=== PATIENT | male | born 1940 | race Caucasian/White ===

== ENCOUNTER → 2016-12-19 | Outpatient (CLI) | payer MEDICARE ==
--- NOTE | 2016-12-20 08:51 | XR ---
EXAMINATION TYPE: XR skull limited DATE OF EXAM: 12/19/2016 12:18 PM COMPARISON: NONE HISTORY: Palpable lump top of the head TECHNIQUE: 2 views of the skull are submitted. FINDINGS: Osseous structures intact. No destructive change. No bony abnormality. IMPRESSION: 1. No osseous abnormality if there is concern for soft tissue lesion consider CT scan or ultrasound.
== END | disposition home or self-care (01) ==
LOC: RADXRYALE 12:02
PROVIDERS: ATTEND Physician Assistant Medical
DX: R22.0 Localized swelling, mass and lump, head (principal)
CPT/HCPCS: 70250

== ENCOUNTER → 2016-12-28 | Outpatient (CLI) | payer MEDICARE ==
--- NOTE | 2016-12-28 15:06 | CT ---
EXAMINATION TYPE: CT brain wo con DATE OF EXAM: 12/28/2016 2:44 PM COMPARISON: NONE HISTORY: Gait disturbance. CT DLP: 1207.00 mGycm Automated exposure control for dose reduction was used. FINDINGS: There are generalized changes of sulcal prominence and ventriculomegaly, compatible with mi ld atrophic change. There is some diffuse periventricular white matter lucency, compatible with small vessel ischemic change. There is no acute focal lesion, mass effect or midline shift identified. I d o not see evidence of intracranial blood. Visualized portions of the paranasal sinuses are clear. There is some fluid in the right-sided mastoi d air cells. No depressed skull fracture is seen. IMPRESSION: 1. NO ACUTE INTRACRANIAL ABNORMALITY. 2. MILD ATROPHIC CHANGE. 3. CHRONIC WHITE MATTER ISCHEMIC CHANGE. 4. EVIDENCE OF RIGHT-SIDED MASTOIDITIS.
== END | disposition home or self-care (01) ==
LOC: RADCTMAIN 14:12
PROVIDERS: ATTEND Family Medicine
DX: R90.89 Other abnormal findings on diagnostic imaging of central nervous system (principal); G31.9 Degenerative disease of nervous system, unspecified
CPT/HCPCS: 70450

== ENCOUNTER → 2017-02-06 | Outpatient (CLI) | payer MEDICARE ==
[2017-02-06 09:18] LABS: CH 30.8; CHCM 33.4; HCT 44.6 % (39.0-53.0); HDW 2.64; MCHC 33.6 g/dL (31.0-37.0); MCV 92.5 fL (80.0-100.0); RBC 4.83 m/uL (4.30-5.90); RDW 13.3 % (11.5-15.5); WBC 6.8 k/uL (3.8-10.6)
[2017-02-06 09:48] LABS: Appearance,Urine Clear (Clear); Bilirubin,Urine Negative (Negative); Glucose,Urine (UA) Negative (Negative); Ketones,Urine Negative (Negative); Leukocyte Esterase,Urine Negative (Negative); Nitrite,Urine Negative (Negative); PH, Urine 6.5 (5.0-8.0); Protein,Urine Trace (Negative); Specific Gravity,Urine 1.023 (1.001-1.035); UA Billing (MACRO vs. MICRO) CHEM
[2017-02-06 10:32] LABS: ALT 32 U/L (21-72); AST 20 U/L (17-59); Alkaline Phosphatase 129 U/L (38-126); Anion Gap 9 mmol/L; Blood Urea Nitrogen 21 mg/dL (9-20); C Reactive Protein <5.0 mg/L (<10.0); Calcium 10.1 mg/dL (8.4-10.2); Carbon Dioxide 32 mmol/L (22-30); Chloride 102 mmol/L (98-107); Creatine Kinase 40 U/L (55-170); Glucose 120 mg/dL (74-99); Magnesium 1.7 mg/dL (1.6-2.3); Non-African American GFR(MDRD) >60 (>60 ml/min/1.73 sqM); Potassium 4.9 mmol/L (3.5-5.1); Sodium 143 mmol/L (137-145); Total Bilirubin 1.1 mg/dL (0.2-1.3)
[2017-02-06 11:22] LABS: Vitamin B12 224 pg/mL
[2017-02-06 13:50] LABS: Erythrocyte Sedimentation Rate 6 mm/hr (0-15)
[2017-02-06 15:17] LABS: Hemoglobin A1C 6.1 % (4.2-6.1)
[2017-02-07 07:12] LABS: Cyclic Citrullinated Pep IgG 5 UNITS (<20)
[2017-02-08 05:59] LABS: Vitamin E (Alpha Tocopherol) 739 ug/dL (500-1800)
[2017-02-12 22:35] LABS: Vitamin K 820 pg/mL (80-1160)
[2017-02-16 19:02] LABS: Nicotinamide 25 ng/mL; Nicotinic Acid None Detected; Nicotinuric Acid None Detected
== END ==
LOC: LABWHC1 08:13
PROVIDERS: ATTEND Psychiatry & Neurology Neurology
DX: G89.4 Chronic pain syndrome (principal); G62.9 Polyneuropathy, unspecified; M79.7 Fibromyalgia
CPT/HCPCS: 36415; 80053; 81003; 82306; 82550; 82607; 83036; 83519; 83735; 84207; 84425; 84446; 84590; 84591; 84597; 85027; 85652; 86140; 86200; 86235

== ENCOUNTER → 2017-02-08 | Outpatient (CLI) | payer MEDICARE ==
--- NOTE | 2017-02-08 11:48 | MR ---
EXAMINATION TYPE: MR brain wo/w con DATE OF EXAM: 02/08/2017 11:40 AM COMPARISON: Previous CT scan of the brain dated 12/28/2016. HISTORY: Memory loss TECHNIQUE: Multiplanar, multiecho imaging of the brain was obtained with and without intravenous adm inistration of 20 mL intravenous MultiHance. FINDINGS: Midline structures are unremarkable. There is a normal craniocervical junction. There is mild mucoperiosteal thickening involving the right maxillary sinus. There is abnormal signal in the right mastoid air cells suggestive of mastoiditis. There are normal vascular flow voids. The orbits appear normal. There is no evidence of a CP angle mass lesion. There is both punctate and confluent periventricular white matter change, likely on the basis of smal l vessel disease and chronic ischemic change. There is evidence of mild layering degeneration within the sherley. There is no mass effect, midline shift or intracranial blood. Following intravenous administration of gadolinium, I do not see evidence of abnormal enhancement. IMPRESSION: 1. NO ACUTE INTRACRANIAL ABNORMALITY. 2. PUNCTATE AND CONFLUENT PERIVENTRICULAR WHITE MATTER CHANGE LIKELY ON THE BASIS SMALL VESSEL DISEAS E AND CHRONIC ISCHEMIC CHANGE. 3. MILD, CHRONIC RIGHT MAXILLARY SINUS MUCOSAL DISEASE. 4. RIGHT-SIDED MASTOIDITIS.
== END | disposition home or self-care (01) ==
LOC: RADMRIMAIN 10:39
PROVIDERS: ATTEND Psychiatry & Neurology Pain Medicine
DX: R90.82 White matter disease, unspecified (principal)
CPT/HCPCS: 70553; A9577

== ENCOUNTER 2017-05-22 21:22 | Inpatient (IN) | payer MEDICARE ==
[2017-05-22] MEDS ORDERED: ASPIRIN 81 MG CHEW PO STA (21:55)
[2017-05-22] MEDS ORDERED: SODIUM CHLORIDE 0.9% 1,000 ML IV STA (21:55)
[2017-05-22] MEDS ORDERED: MORPHINE SULFATE 2 MG/ML SYRINGE IVP ONE (21:57)
[2017-05-22] MEDS ORDERED: ONDANSETRON 4 MG/2 ML VIAL IVP STA (21:58)
[2017-05-22 22:16] LABS: Basophils # (A) 0.1 k/uL (0-0.2); Basophils % (A) 1 %; CH 32.7; CHCM 35.9; Eosinophils # (A) 0.1 k/uL (0-0.7); Eosinophils % (A) 2 %; HCT 41.6 % (39.0-53.0); HDW 2.98; HGB 14.6 gm/dL (13.0-17.5); Luc # (Auto) 0.16; Luc % (Auto) 2; Lymphocytes # (A) 1.8 k/uL (1.0-4.8); Lymphocytes % (A) 27 %; MCH 32.1 pg (25.0-35.0); MCHC 35.1 g/dL (31.0-37.0); MCV 91.5 fL (80.0-100.0); Mean Platelet Volume 8.2; Monocytes # (A) 0.5 k/uL (0-1.0); Monocytes % (A) 7 %; Neutrophils % (A) 60 %; RBC 4.54 m/uL (4.30-5.90); RDW 13.7 % (11.5-15.5); WBC 6.6 k/uL (3.8-10.6); WBC (Perox) 6.32
[2017-05-22 22:24] LABS: INR 1.4 (<1.1); Partial Thromboplastin Time 24.7 sec (22.0-30.0); Prothrombin Time 13.5 sec (9.0-12.0)
[2017-05-22 22:33] LABS: ALT 32 U/L (21-72); AST 33 U/L (17-59); Alkaline Phosphatase 92 U/L (38-126); Anion Gap 10 mmol/L; Blood Urea Nitrogen 14 mg/dL (9-20); Calcium 7.7 mg/dL (8.4-10.2); Carbon Dioxide 27 mmol/L (22-30); Chloride 105 mmol/L (98-107); Glucose 120 mg/dL (74-99); Non-African American GFR(MDRD) >60 (>60 ml/min/1.73 sqM); Potassium 3.7 mmol/L (3.5-5.1); Sodium 142 mmol/L (137-145); Total Protein 6.6 g/dL (6.3-8.2)
[2017-05-22 22:36] LABS: Magnesium <0.4 mg/dL (1.6-2.3)
[2017-05-22 22:37] LABS: Creatine Kinase 111 U/L (55-170)
[2017-05-22 22:50] LABS: Creatine Kinase MB 0.3 ng/mL (0.0-2.4); Troponin I <0.012 ng/mL (0.000-0.034)
--- NOTE | 2017-05-22 22:55 | XR ---
EXAM: XR Chest, 2 Views CLINICAL HISTORY: Reason: dysrhythmia TECHNIQUE: Frontal and lateral views of the chest. COMPARISON: No relevant prior studies available. FINDINGS: Several EKG wires overlie the chest. Lungs: Minimal biapical pleural thickening suggesting scarring. No defined infiltrate. Pleural space: No pleural effusion or pneumothorax. Heart: Prior median sternotomy and presumed CABG. heart size within normal limits. Mediastinum: Unremarkable. Bones/joints: Rightward curvature of the thoracic spine, with degenerative changes present. IMPRESSION: No acute intrathoracic abnormality is seen.
[2017-05-22] MEDS: MAGNESIUM SULFATE-D5W PMX 1 GM in DEXTROSE/WATER 1 100ML.BAG IVPB SCH (23:56)
[2017-05-23] MEDS ORDERED: MORPHINE SULFATE 2 MG/ML SYRINGE IVP PRN (00:33)
[2017-05-23] MEDS ORDERED: NITROGLYCERIN SL TABS 0.4 MG TAB SUBLINGUAL PRN (00:33)
--- NOTE | 2017-05-23 00:33 | ED ---
Arrhythmia/Palpitations HPI - General Chief Complaint: Arrhythmia/Palpitations Stated Complaint: irregular heartbeat Time Seen by Provider: 05/22/17 21:39 Source: patient, family Mode of arrival: ambulatory Limitations: no limitations - History of Present Illness Initial Comments: 76 years old gentleman with known ischemic heart disease and is status post CABG presents with the irregular heart. He felt that his pulse was more prominent today he was feeling that his heart was irregular he also felt some chest pressure he denies any chest pain denies any shortness of breathno pleuritic chest pain. No fever no chills he is not coughing up any phlegm. He been feeling weak like of energy - Related Data Home Medications Medication Instructions Recorded Confirmed Albuterol Sulfate [Proair Hfa] 1 - 2 puff INHALATION RT-Q6H PRN 05/22/17 Aspirin 81 mg PO DAILY 05/22/17 05/22/17 Atorvastatin [Lipitor] 40 mg PO DAILY 05/22/17 05/22/17 Biotin 10,000 mcg PO DAILY 05/22/17 05/22/17 Cholecalciferol [Vitamin D3] 1,000 unit PO DAILY 05/22/17 05/22/17 Citalopram Hydrobromide [CeleXA] 30 mg PO DAILY 05/22/17 05/22/17 Colchicine 0.6 mg PO BID PRN 05/22/17 05/22/17 Cyclobenzaprine [Flexeril] 10 mg PO DAILY 05/22/17 05/22/17 Folic Acid 1 mg PO DAILY 05/22/17 05/22/17 Furosemide [Lasix] 20 mg PO DAILY 05/22/17 05/22/17 Gabapentin 600 mg PO TID 05/22/17 05/22/17 HYDROcodone/APAP 5-325MG [[place] 1 tab PO BID PRN 05/22/17 05/22/17 5-325] LORazepam [Ativan] 1 mg PO DAILY PRN 05/22/17 05/22/17 Meclizine [Antivert] 25 mg PO DAILY PRN 05/22/17 05/22/17 Meloxicam [Mobic] 15 mg PO DAILY 05/22/17 05/22/17 Metoprolol Tartrate [Lopressor] 25 mg PO BID 05/22/17 05/22/17 Modafinil [Provigil] 100 mg PO DAILY 05/22/17 05/22/17 Omeprazole [PriLOSEC] 20 mg PO DAILY 05/22/17 05/22/17 Potassium Chloride [K-Tab ER] 10 meq PO DAILY 05/22/17 05/22/17 Tamsulosin HCl [Flomax] 0.4 mg PO TUSA 05/22/17 05/22/17 Vitamin B Complex 1 cap PO DAILY 05/22/17 05/22/17 Zinc 50 mg PO DAILY 05/22/17 05/22/17 metFORMIN HCL [Glucophage] 500 mg PO DAILY 05/22/17 05/22/17 Allergies Allergy/AdvReac Type Severity Reaction Status Date / Time No Known Allergies Allergy Verified 05/22/17 22:00 Review of Systems ROS Statement: Those systems with pertinent positive or pertinent negative responses have been documented in the HPI. ROS Other: All systems not noted in ROS Statement are negative. Past Medical History Past Medical History: Atrial Fibrillation, Chest Pain / Angina, COPD, Diabetes Mellitus, Hypertension Additional Past Medical History / Comment(s): Menieres, prostate CA History of Any Multi-Drug Resistant Organisms: None Reported Past Surgical History: Back Surgery, Cholecystectomy, Coronary Bypass/CABG, Joint Replacement, Orthopedic Surgery Past Psychological History: No Psychological Hx Reported Smoking Status: Former smoker Past Alcohol Use History: Occasional Past Drug Use History: None Reported General Exam - General Exam Comments Initial Comments: General: The patient is awake and alert, in no distress, and does not appear acutely ill. Skin: Skin is warm and dry and no rashes or lesions are noted. Eye: Pupils are equal, round and reactive to light, extra-ocular movements are intact; there is normal conjunctiva bilaterally. Ears, nose, mouth and throat: There are moist mucous membranes and no oral lesions. Neck: The neck is supple, there is no tenderness or JVD. Cardiovascular: There is a regular rate and rhythm. No murmur, rub or gallop is appreciated. Respiratory: To auscultation bilateral, no wheezing no rhonchi no distress respiratory wong noticed Gastrointestinal: Soft, non-distended, non-tender abdomen without masses or organomegaly noted. There is no rebound or guarding present. Bowel sounds are unremarkable. Back: There is no tenderness to palpation in the midline. There is no obvious deformity. Musculoskeletal: Normal ROM, no tenderness, There is no pedal edema. There is no calf tenderness or swelling. No cords were appreciated. Neurological: CN II-XII intact, Cranial nerves III through XII are intact. There are no obvious motor or sensory deficits. Coordination appears grossly intact. Speech is normal. Psychiatric: Cooperative, appropriate mood & affect, normal judgment. Limitations: no limitations Course Vital Signs 05/22/17 05/22/17 05/22/17 21:24 22:43 23:27 Temperature 98.3 F Pulse Rate 83 79 75 Respiratory 18 18 18 Rate Blood Pressure 116/67 112/68 113/76 O2 Sat by Pulse 95 93 L 98 Oximetry 05/23/17 00:24 Temperature Pulse Rate 67 Respiratory 18 Rate Blood Pressure 112/67 O2 Sat by Pulse 98 Oximetry , Patient was reassessed and then noticed a magnesium was significantly low, CBC INR troponin EKG and chest x-ray are unremarkable considering his significant history of ischemic heart disease status post CABG and a magnesium is currently observed under Dr. Lara service and cardiology be consulted EKG Findings - EKG Comments: EKG Findings:: 50 mL EKG shows sinus rhythm with the frequent PVCs ventricular rate is 91 WI interval is 124 QRS duration is 84 QT/QTc is 4/496 and 50 mL EKG does not reveal any ST elevation noticed some flattening of the T-wave in lead 2 Medical Decision Making - Lab Data Result diagrams: 05/22/17 21:40 05/22/17 21:40 Lab Results 05/22/17 05/22/17 05/22/17 Range/Units 21:40 21:40 21:40 WBC 6.6 (3.8-10.6) k/uL RBC 4.54 (4.30-5.90) m/uL Hgb 14.6 (13.0-17.5) gm/dL Hct 41.6 (39.0-53.0) % MCV 91.5 (80.0-100.0) fL MCH 32.1 (25.0-35.0) pg MCHC 35.1 (31.0-37.0) g/dL RDW 13.7 (11.5-15.5) % Plt Count 156 (150-450) k/uL Neutrophils % 60 % Lymphocytes % 27 % Monocytes % 7 % Eosinophils % 2 % Basophils % 1 % Neutrophils # 4.0 (1.3-7.7) k/uL Lymphocytes # 1.8 (1.0-4.8) k/uL Monocytes # 0.5 (0-1.0) k/uL Eosinophils # 0.1 (0-0.7) k/uL Basophils # 0.1 (0-0.2) k/uL PT (9.0-12.0) sec INR (<1.1) APTT (22.0-30.0) sec Sodium 142 (137-145) mmol/L Potassium 3.7 (3.5-5.1) mmol/L Chloride 105 (98-107) mmol/L Carbon Dioxide 27 (22-30) mmol/L Anion Gap 10 mmol/L BUN 14 (9-20) mg/dL Creatinine 0.83 (0.66-1.25) mg/dL Est GFR (MDRD) Af Amer >60 (>60 ml/min/1.73 sqM) Est GFR (MDRD) Non-Af >60 (>60 ml/min/1.73 sqM) Glucose 120 H (74-99) mg/dL Calcium 7.7 L (8.4-10.2) mg/dL Magnesium <0.4 L* (1.6-2.3) mg/dL Total Bilirubin 2.0 H (0.2-1.3) mg/dL AST 33 (17-59) U/L ALT 32 (21-72) U/L Alkaline Phosphatase 92 (38-126) U/L Total Creatine Kinase 111 (55-170) U/L CK-MB (CK-2) 0.3 (0.0-2.4) ng/mL CK-MB (CK-2) Rel Index 0.3 Troponin I <0.012 (0.000-0.034) ng/mL Total Protein 6.6 (6.3-8.2) g/dL Albumin 3.7 (3.5-5.0) g/dL 05/22/17 Range/Units 21:40 WBC (3.8-10.6) k/uL RBC (4.30-5.90) m/uL Hgb (13.0-17.5) gm/dL Hct (39.0-53.0) % MCV (80.0-100.0) fL MCH (25.0-35.0) pg MCHC (31.0-37.0) g/dL RDW (11.5-15.5) % Plt Count (150-450) k/uL Neutrophils % % Lymphocytes % % Monocytes % % Eosinophils % % Basophils % % Neutrophils # (1.3-7.7) k/uL Lymphocytes # (1.0-4.8) k/uL Monocytes # (0-1.0) k/uL Eosinophils # (0-0.7) k/uL Basophils # (0-0.2) k/uL PT 13.5 H (9.0-12.0) sec INR 1.4 (<1.1) APTT 24.7 (22.0-30.0) sec Sodium (137-145) mmol/L Potassium (3.5-5.1) mmol/L Chloride (98-107) mmol/L Carbon Dioxide (22-30) mmol/L Anion Gap mmol/L BUN (9-20) mg/dL Creatinine (0.66-1.25) mg/dL Est GFR (MDRD) Af Amer (>60 ml/min/1.73 sqM) Est GFR (MDRD) Non-Af (>60 ml/min/1.73 sqM) Glucose (74-99) mg/dL Calcium (8.4-10.2) mg/dL Magnesium (1.6-2.3) mg/dL Total Bilirubin (0.2-1.3) mg/dL AST (17-59) U/L ALT (21-72) U/L Alkaline Phosphatase (38-126) U/L Total Creatine Kinase (55-170) U/L CK-MB (CK-2) (0.0-2.4) ng/mL CK-MB (CK-2) Rel Index Troponin I (0.000-0.034) ng/mL Total Protein (6.3-8.2) g/dL Albumin (3.5-5.0) g/dL Disposition Clinical Impression: Chest pressure, Hypomagnesemia Disposition: ADMITTED IP TO THIS [facility] Condition: Good Referrals: Pete Rm DO [Primary Care Provider] - 1-2 days
[2017-05-23] MEDS ORDERED: ALBUTEROL NEBULIZED 2.5 MG/3 ML INHALATION PRN (00:40)
[2017-05-23] MEDS ORDERED: LORazepam 1 MG TAB PO PRN (00:40)
[2017-05-23] MEDS ORDERED: COLCHICINE 0.6 MG TAB PO PRN (00:40)
[2017-05-23] MEDS ORDERED: MECLIZINE 25 MG TAB PO PRN (00:40)
[2017-05-23] MEDS: MAGNESIUM SULFATE-D5W PMX 1 GM in DEXTROSE/WATER 1 100ML.BAG IVPB SCH ×5 (01:06→12:36)
[2017-05-23 04:57] LABS: Creatine Kinase 123 U/L (55-170)
[2017-05-23 05:10] LABS: Creatine Kinase MB 0.8 ng/mL (0.0-2.4); Troponin I <0.012 ng/mL (0.000-0.034)
[2017-05-23 05:44] LABS: ALT 38 U/L (21-72); AST 31 U/L (17-59); Alkaline Phosphatase 94 U/L (38-126); Anion Gap 10 mmol/L; Blood Urea Nitrogen 14 mg/dL (9-20); Calcium 7.4 mg/dL (8.4-10.2); Carbon Dioxide 24 mmol/L (22-30); Chloride 108 mmol/L (98-107); Glucose 89 mg/dL (74-99); Non-African American GFR(MDRD) >60 (>60 ml/min/1.73 sqM); Potassium 3.6 mmol/L (3.5-5.1); Sodium 142 mmol/L (137-145); Total Bilirubin 1.6 mg/dL (0.2-1.3); Total Protein 5.9 g/dL (6.3-8.2)
[2017-05-23 05:47] LABS: Magnesium 0.9 mg/dL (1.6-2.3)
[2017-05-23 06:20] LABS: Glucose,Whole Blood 89 mg/dL (75-99)
[2017-05-23] MEDS ORDERED: Magnesium Replacement Protocol 1 EACH MISC MISCELLANE PRN (06:48)
[2017-05-23] MEDS ORDERED: NON-FORMULARY DRUG (Biotin [Biotin] 10,000 MCG) PO SCH (09:00)
[2017-05-23] MEDS ORDERED: NON-FORMULARY DRUG (Zinc [Zinc] 50 MG) PO SCH (09:00)
--- NOTE | 2017-05-23 09:53 | P.CRDCN ---
History of Present Illness Consult date: 05/23/17 Requesting physician: Mina Lara Consult reason: chest pain Chief complaint: Fatigue, palpitations and chest pain History of present illness: This is a pleasant 76-year-old gentleman who follows regularly with Dr. Schulz in the office. He has a known history of coronary artery disease with prior bypass surgery in 2012 at which time he underwent a REYES to the LAD, saphenous vein graft to the diuretic, OM 2, OM 3, and RCA. Patient also has history of diabetes, hypertension, hyperlipidemia, paroxysmal atrial fibrillation, COPD, Mnire's disease, spinal problems, he presents to the hospital with symptoms of fatigue and generalized tiredness for the past couple of weeks, yesterday he was apparently vacuuming, became extremely diaphoretic and developed chest heaviness, he was also short of breath. He states he went into the shower to see if the symptoms would subside, however because they continued he called his at work and came to the emergency room for further evaluation. He also states at that time that he felt as though his heart went into an irregular rhythm, he could feel palpitations. EKG on arrival here showed a normal sinus rhythm with left axis deviation, occasional PVC, evidence of old inferior wall [place]. EKG report this morning shows a normal sinus rhythm with no acute changes, evidence of old inferior infarct. Chest x-ray did not reveal any acute abnormality. CBC normal. Potassium 3.7 on admission, 3.6 this morning. BUN 14, creatinine 0.8. Magnesium level on admission less than 0.4, replacement was given, this morning 0.9. Total bilirubin 2.0, 1.6 this morning. Troponin 0.012, 0.012. Blood pressure on admission 116/60 with a heart rate in the 80s, 95% on room air. At the time of my examination this morning, patient states he feels mildly tired, otherwise no overt complaints. According to Dr. Schulz's office note, the most recent stress test was in October 2015 which revealed a fixed inferior apical and inferior septal defect. Past Medical History Past Medical History: Atrial Fibrillation, Coronary Artery Disease (CAD), Chest Pain / Angina, COPD, Diabetes Mellitus, Hypertension Additional Past Medical History / Comment(s): Menieres, prostate CA History of Any Multi-Drug Resistant Organisms: None Reported Past Surgical History: Back Surgery, Cholecystectomy, Coronary Bypass/CABG, Joint Replacement, Orthopedic Surgery Additional Past Surgical History / Comment(s): CATARCT REMOVAL Past Anesthesia/Blood Transfusion Reactions: No Reported Reaction Past Psychological History: No Psychological Hx Reported Smoking Status: Former smoker Past Alcohol Use History: Occasional Past Drug Use History: None Reported - Past Family History Mother Family Medical History: Congestive Heart Failure (CHF), Myocardial Infarction ( [place]) Medications and Allergies Home Medications Medication Instructions Recorded Confirmed Type Albuterol Sulfate [Proair Hfa] 1 - 2 puff INHALATION RT-Q6H PRN 05/22/17 History Aspirin 81 mg PO DAILY 05/22/17 05/22/17 History Atorvastatin [Lipitor] 40 mg PO DAILY 05/22/17 05/22/17 History Biotin 10,000 mcg PO DAILY 05/22/17 05/22/17 History Cholecalciferol [Vitamin D3] 1,000 unit PO DAILY 05/22/17 05/22/17 History Citalopram Hydrobromide [CeleXA] 30 mg PO DAILY 05/22/17 05/22/17 History Colchicine 0.6 mg PO BID PRN 05/22/17 05/22/17 History Cyclobenzaprine [Flexeril] 10 mg PO DAILY 05/22/17 05/22/17 History Folic Acid 1 mg PO DAILY 05/22/17 05/22/17 History Furosemide [Lasix] 20 mg PO DAILY 05/22/17 05/22/17 History Gabapentin 600 mg PO TID 05/22/17 05/22/17 History HYDROcodone/APAP 5-325MG [[place] 1 tab PO BID PRN 05/22/17 05/22/17 History 5-325] LORazepam [Ativan] 1 mg PO DAILY PRN 05/22/17 05/22/17 History Meclizine [Antivert] 25 mg PO DAILY PRN 05/22/17 05/22/17 History Meloxicam [Mobic] 15 mg PO DAILY 05/22/17 05/22/17 History Metoprolol Tartrate [Lopressor] 25 mg PO BID 05/22/17 05/22/17 History Modafinil [Provigil] 100 mg PO DAILY 05/22/17 05/22/17 History Omeprazole [PriLOSEC] 20 mg PO DAILY 05/22/17 05/22/17 History Potassium Chloride [K-Tab ER] 10 meq PO DAILY 05/22/17 05/22/17 History Tamsulosin HCl [Flomax] 0.4 mg PO TUSA 05/22/17 05/22/17 History Vitamin B Complex 1 cap PO DAILY 05/22/17 05/22/17 History Zinc 50 mg PO DAILY 05/22/17 05/22/17 History metFORMIN HCL [Glucophage] 500 mg PO DAILY 05/22/17 05/22/17 History Allergies Allergy/AdvReac Type Severity Reaction Status Date / Time No Known Allergies Allergy Verified 05/22/17 22:00 Physical Exam Vitals: Vital Signs Temp Pulse Pulse Resp BP BP Pulse Ox 05/23/17 08:00 97.0 F L 73 16 104/61 96 05/23/17 04:00 97.6 F 67 18 132/64 95 05/23/17 02:07 70 18 05/23/17 01:48 98.3 F 67 18 112/67 98 05/23/17 00:49 97.2 F L 70 18 128/58 96 05/23/17 00:33 96 05/23/17 00:24 67 18 112/67 98 05/22/17 23:27 75 18 113/76 98 05/22/17 22:43 79 18 112/68 93 L 05/22/17 21:24 98.3 F 83 18 116/67 95 Intake and Output 05/22/17 05/23/17 05/23/17 22:59 06:59 14:59 Intake Total 400 0 Output Total 100 Balance 300 0 Intake: Intake, IV Titration 400 Amount Sodium Chloride 0.9% 1, 400 000 ml @ 100 mls/hr IV . Q10H STA Rx#:[id number] Oral 0 Output: Urine 100 Other: Voiding Method Urinal Urinal # Voids 1 Weight 104.326 kg 98.6 kg PHYSICAL EXAMINATION: HEENT: Head is atraumatic, normocephalic. Pupils equal, round. Neck is supple. There is no elevated jugular venous pressure. HEART EXAMINATION: Heart S1, S2 normal. No murmur or gallop heard. CHEST EXAMINATION: Lungs are clear to auscultation and precussion. No chest wall tenderness is noted on palpation or with deep breathing. ABDOMEN: Soft, nontender. Bowel sounds are heard. No organomegaly noted. EXTREMITIES: 2+ peripheral pulses with no evidence of peripheral edema and no calf tenderness noted. NEUROLOGIC patient is awake, alert and oriented -3. . Results 05/22/17 21:40 05/23/17 04:14 Cardiac Enzymes 05/22/17 05/22/17 05/23/17 Range/Units 21:40 21:40 04:14 AST 33 (17-59) U/L CK-MB (CK-2) 0.3 0.8 (0.0-2.4) ng/mL Troponin I <0.012 <0.012 (0.000-0.034) ng/mL 05/23/17 Range/Units 04:14 AST 31 (17-59) U/L CK-MB (CK-2) (0.0-2.4) ng/mL Troponin I (0.000-0.034) ng/mL Coagulation 05/22/17 Range/Units 21:40 PT 13.5 H (9.0-12.0) sec APTT 24.7 (22.0-30.0) sec CBC 05/22/17 Range/Units 21:40 WBC 6.6 (3.8-10.6) k/uL RBC 4.54 (4.30-5.90) m/uL Hgb 14.6 (13.0-17.5) gm/dL Hct 41.6 (39.0-53.0) % Plt Count 156 (150-450) k/uL Comprehensive Metabolic Panel 05/22/17 05/23/17 Range/Units 21:40 04:14 Sodium 142 142 (137-145) mmol/L Potassium 3.7 3.6 (3.5-5.1) mmol/L Chloride 105 108 H (98-107) mmol/L Carbon Dioxide 27 24 (22-30) mmol/L BUN 14 14 (9-20) mg/dL Creatinine 0.83 0.80 (0.66-1.25) mg/dL Glucose 120 H 89 (74-99) mg/dL Calcium 7.7 L 7.4 L (8.4-10.2) mg/dL AST 33 31 (17-59) U/L ALT 32 38 (21-72) U/L Alkaline Phosphatase 92 94 (38-126) U/L Total Protein 6.6 5.9 L (6.3-8.2) g/dL Albumin 3.7 3.4 L (3.5-5.0) g/dL Current Medications Generic Name Dose Route Start Last Admin Trade Name Freq PRN Reason Stop Dose Admin Hydrocodone Bitart/Acetaminophen 1 each 05/23/17 00:40 [place] 5-325 PO BID PRN Pain Albuterol Sulfate 2.5 mg 05/23/17 00:40 Ventolin Nebulized INHALATION RT-Q6H PRN Shortness Of Breath Aspirin 81 mg 05/23/17 09:00 Aspirin PO DAILY [facility] Atorvastatin Calcium 40 mg 05/23/17 09:00 Lipitor PO DAILY [facility] Cholecalciferol 1,000 unit 05/23/17 09:00 Vitamin D3 PO DAILY [facility] Citalopram Hydrobromide 30 mg 05/23/17 09:00 Celexa PO DAILY [facility] Colchicine 0.6 mg 05/23/17 00:40 Colcrys PO BID PRN GOUT Cyclobenzaprine HCl 10 mg 05/23/17 09:00 Flexeril PO DAILY [facility] Folic Acid 1 mg 05/23/17 09:00 Folic Acid PO DAILY [facility] Furosemide 20 mg 05/23/17 09:00 Lasix PO DAILY [facility] Gabapentin 600 mg 05/23/17 09:00 Neurontin PO TID [facility] Magnesium Sulfate/Dextrose 1 100 mls @ 100 mls/hr 05/23/17 07:00 05/23/17 07: 16 gm/ IV Solution IVPB 05/23/17 10:59 100 mls/hr Q1H [facility] Administration Lorazepam 1 mg 05/23/17 00:40 Ativan PO DAILY PRN Anxiety Magnesium Oxide 400 mg 05/23/17 09:00 Mag-Ox PO TID [facility] Meclizine HCl 25 mg 05/23/17 00:40 Antivert PO DAILY PRN Vertigo Meloxicam 15 mg 05/23/17 09:00 Mobic PO DAILY [facility] Metformin HCl 500 mg 05/23/17 09:00 Glucophage PO DAILY [facility] Metoprolol Tartrate 25 mg 05/23/17 09:00 Lopressor PO BID [facility] Miscellaneous Information 1 each 05/23/17 06:48 Magnesium Per Protocol MISCELLANE DAILY PRN Per Protocol Protocol Modafinil 100 mg 05/23/17 09:00 Provigil PO DAILY JOHN Morphine Sulfate 2 mg 05/23/17 00:33 Morphine Sulfate (Inj) IVP Q5M PRN Chest Pain Nitroglycerin 0.4 mg 05/23/17 00:33 Nitrostat SUBLINGUAL Q5M PRN Chest Pain Pantoprazole Sodium 40 mg 05/23/17 09:00 Protonix PO DAILY JOHN Potassium Chloride 10 meq 05/23/17 09:00 K-Dur 10 PO DAILY JOHN Tamsulosin HCl 0.4 mg 05/25/17 00:40 Flomax PO TUSA JOHN Vitamin B Complex/Vit C/Vit E/Zinc 1 each 05/23/17 09:00 Z-Bec PO DAILY JOHN Intake and Output 05/22/17 05/23/17 05/23/17 22:59 06:59 14:59 Intake Total 400 0 Output Total 100 Balance 300 0 Intake: Intake, IV Titration 400 Amount Sodium Chloride 0.9% 1, 400 000 ml @ 100 mls/hr IV . Q10H STA Rx#:[id number] Oral 0 Output: Urine 100 Other: Voiding Method Urinal Urinal # Voids 1 Weight 104.326 kg 98.6 kg 05/22/17 21:40 05/23/17 04:14 EKG Interpretations (text) EKG shows normal sinus rhythm, left axis deviation, evidence of old inferior infarct, and PVCs. Assessment and Plan Plan: Assessment and plan #1 symptoms of progressive fatigue with associated episode of diaphoresis, chest pressure and heaviness with associated shortness of breath, suggestive of possible unstable angina. Troponins 2 have been negative. #2 history of coronary artery bypass grafting surgery in 2012 #3 hypertension #4 hyperlipidemia # 5 diabetes #6 COPD #7 paroxysmal atrial fibrillation #8 spinal issues #9 Mnire's disease #10 severe hypomagnesemia Plan We will obtain an echocardiogram with Doppler study. Replace the patient's magnesium. Replace potassium. Obtain sed rate Once the patient is stabilized and labs are within normal range, recommend stress testing. DNP note has been reviewed, I agree with a documented findings and plan of care. Patient was seen and examined.
[2017-05-23] MEDS: ASPIRIN 81 MG CHEW PO SCH (10:36)
[2017-05-23] MEDS: ATORVASTATIN 40 MG TAB PO SCH (10:36)
[2017-05-23] MEDS: B COMPLEX-VIT C-VIT E-ZINC 1 EACH TAB PO SCH (10:37)
[2017-05-23] MEDS: CHOLECALCIFEROL 1,000 UNIT TAB PO SCH (10:37)
[2017-05-23] MEDS: CITALOPRAM HYDROBROMIDE 10 MG TAB PO SCH (10:37)
[2017-05-23] MEDS: GABAPENTIN 300 MG CAP PO SCH ×3 (10:38→19:57)
[2017-05-23] MEDS: FUROSEMIDE 20 MG TAB PO SCH (10:38)
[2017-05-23] MEDS: FOLIC ACID 1 MG TAB PO SCH (10:38)
[2017-05-23] MEDS: MAGNESIUM OXIDE 400 MG TAB PO SCH ×3 (10:38→19:58)
[2017-05-23 10:39] LABS: Creatine Kinase 96 U/L (55-170)
[2017-05-23] MEDS: metFORMIN 500 MG TAB PO SCH (10:40)
[2017-05-23] MEDS: METOPROLOL TARTRATE 25 MG TAB PO SCH ×2 (10:40→19:57)
[2017-05-23] MEDS: PANTOPRAZOLE 40 MG TABLET PO SCH (10:40)
[2017-05-23] MEDS: MELOXICAM 7.5 MG TAB PO SCH (10:42)
[2017-05-23] MEDS: POTASSIUM CHLORIDE ER 10 MEQ TAB.ER.PRT PO SCH (10:43)
[2017-05-23 10:52] LABS: Creatine Kinase MB 0.9 ng/mL (0.0-2.4); Troponin I <0.012 ng/mL (0.000-0.034)
[2017-05-23] MEDS: CYCLOBENZAPRINE 10 MG TAB PO SCH (11:07)
[2017-05-23 11:33] LABS: Glucose,Whole Blood 118 mg/dL (75-99)
[2017-05-23] MEDS: POTASSIUM CHLORIDE ER 20 MEQ TAB.ER PO SCH ×3 (11:57→16:40)
[2017-05-23] MEDS: MODAFINIL 100 MG TAB PO SCH (16:41)
[2017-05-23 16:53] LABS: Glucose,Whole Blood 141 mg/dL (75-99)
[2017-05-23] MEDS: HYDROcodone/APAP 5-325MG 1 EACH TAB PO PRN (19:56)
[2017-05-23 20:46] LABS: Anion Gap 8 mmol/L; Blood Urea Nitrogen 11 mg/dL (9-20); Calcium 7.8 mg/dL (8.4-10.2); Carbon Dioxide 24 mmol/L (22-30); Chloride 109 mmol/L (98-107); Glucose 101 mg/dL (74-99); Magnesium 1.8 mg/dL (1.6-2.3); Non-African American GFR(MDRD) >60 (>60 ml/min/1.73 sqM); Potassium 4.6 mmol/L (3.5-5.1); Sodium 141 mmol/L (137-145)
--- NOTE | 2017-05-23 21:20 | HP ---
DATE OF SERVICE: 05/23/2017 CHIEF COMPLAINTS: Sweating and chest discomfort. HISTORY OF PRESENT ILLNESS: This 76-year-old gentleman with a past medical history of multiple medical problems, including history of atrial fibrillation, history of CAD, CABG, COPD, hypertension, being followed by Dr. Rm in the outpatient setting, was complaining of significant sweating while vacuuming for 1 to 1-1/2 hours. The patient also had some shortness of breath with chest discomfort. He came to [facility] and was admitted for further evaluation. There is no history of any fever, rigor or chills; no history of headache, loss of consciousness, seizures. PAST MEDICAL HISTORY: 1. History of atrial fibrillation. 2. CAD. 3. COPD. 4. Diabetes mellitus. 5. History of hypertension. 6. History of Meniere's disease. 7. Prostate cancer. HOME MEDICATIONS: 1. Flomax 0.4 Tuesdays and Saturdays. 2. ProAir HFA 1 to 2 puffs q.6 p.r.n. 3. Zinc 50 mg p.o. daily. 4. Vitamin B complex. 5. Vitamin D3 1000. 6. K-Tab ER 10 mEq p.o. daily. 7. Prilosec 20 mg daily. 8. Provigil 100 mg p.o. daily. 9. Glucophage 500 mg p.o. daily. 10. Lopressor 25 mg p.o. b.i.d. 11. Mobic 15 mg p.o. b.i.d. 12. [place] 5 mg b.i.d. p.r.n. 13. Lasix 20 mg p.o. daily. 14. Gabapentin 600 mg p.o. t.i.d. 15. Folic acid 1 mg p.o. daily. 16. Flexeril 10 mg p.o. daily. 17. Colchicine 0.6 mg b.i.d. p.r.n. 18. Celexa 30 mg. 19. Antivert 25 mg daily p.r.n. 20. Ativan 1 mg daily p.r.n. 21. Biotin 10,000 mcg p.o. daily. 22. Lipitor 40 mg p.o. daily. 23. Aspirin 81 mg p.o. daily. ALLERGIES: NONE. FAMILY HISTORY: History of CHF and myocardial infarction. SOCIAL HISTORY: Previous history of smoking. No history of alcohol intake. REVIEW OF SYSTEMS: ENT: No diminished hearing. No diminished vision. CARDIOVASCULAR SYSTEM: No angina, palpitations. RESPIRATORY SYSTEM: As mentioned earlier. GI: No nausea, vomiting. : No dysuria, retention. NERVOUS SYSTEM: No numbness, weakness. ALLERGY/IMMUNOLOGY: No asthma, fever. MUSCULOSKELETAL: As mentioned earlier. HEMATOLOGY/ONCOLOGY: No history of anemia. ENDOCRINE: As mentioned earlier. CONSTITUTIONAL: As mentioned earlier. DERMATOLOGIC: Negative. RHEUMATOLOGIC: Negative. PSYCHIATRY: As mentioned earlier. PHYSICAL EXAMINATION: Patient is alert and oriented x3. Pulse is 78, blood pressure 113/64, respirations 20, temperature 97 degrees, pulse ox 94% on 2 L. HEENT: Conjunctivae normal. Oral mucosa moist. NECK: No jugular venous congestion. No carotid bruit. No lymph node enlargement. CARDIAC: S1, S2 muffled. No S3. No S4. RESPIRATORY: Breath sounds diminished at the bases. A few scattered rhonchi. No crackles. ABDOMEN: Soft. Non-tender. No mass palpable. LEGS: No edema. No swelling. NERVOUS SYSTEM: Higher functions as mentioned earlier. Moves all 4 limbs. No focal motor or sensory deficit. LYMPHATICS: No lymph node palpable in neck, axillae or groin. SKIN: No ulcer, rash or bleeding. LABS: CBC within normal limits. Calcium 7.7. Bilirubin is 2 and 1.6. Albumin is 3.4. ASSESSMENT: 1. Chest pain, possible unstable angina. 2. Shortness of breath and diaphoresis for evaluation. 3. Hypocalcemia. 4. History of coronary artery disease, coronary artery bypass grafting. 5. History of chronic obstructive pulmonary disease. 6. Diabetes mellitus. 7. Hypertension. 8. History of atrial fibrillation. 9. History of degenerative joint disease. RECOMMENDATIONS AND DISCUSSION: In this 76-year-old gentleman who presented with multiple complex medical issues, we will monitor the patient closely, continue the current medications, continue with symptomatic treatment. Rule out myocardial infarction. Follow closely with Cardiology. Possible stress test. Repeat labs will be ordered for tomorrow. Resume the home medications. Guarded prognosis because of multiple complex medical issues. Further recommendations to follow. A copy of this dictation is being forwarded to Dr. Rm, who is the primary physician. [facility] SYSTEMTomasz
[2017-05-23 21:33] LABS: Glucose,Whole Blood 102 mg/dL (75-99)
[2017-05-23] MEDS ORDERED: MAGNESIUM SULFATE-D5W PMX 1 GM in DEXTROSE/WATER 1 100ML.BAG IVPB ONE (22:00)
[2017-05-24 06:16] LABS: Basophils % (A) 1 %; CH 31.9; CHCM 34.1; Eosinophils # (A) 0.1 k/uL (0-0.7); Eosinophils % (A) 2 %; HCT 38.5 % (39.0-53.0); HDW 2.95; HGB 13.4 gm/dL (13.0-17.5); Luc # (Auto) 0.11; Luc % (Auto) 2; Lymphocytes % (A) 21 %; MCH 32.6 pg (25.0-35.0); MCHC 34.7 g/dL (31.0-37.0); MCV 93.9 fL (80.0-100.0); Mean Platelet Volume 7.4; Monocytes # (A) 0.3 k/uL (0-1.0); Monocytes % (A) 5 %; Neutrophils # (A) 3.4 k/uL (1.3-7.7); Neutrophils % (A) 69 %; RDW 13.4 % (11.5-15.5); WBC 4.9 k/uL (3.8-10.6)
[2017-05-24 06:32] LABS: Anion Gap 5 mmol/L; Blood Urea Nitrogen 12 mg/dL (9-20); Calcium 7.8 mg/dL (8.4-10.2); Carbon Dioxide 26 mmol/L (22-30); Chloride 109 mmol/L (98-107); Cholesterol 89 mg/dL (<200); Glucose 85 mg/dL (74-99); HDL Cholesterol 38 mg/dL (40-60); Non-African American GFR(MDRD) >60 (>60 ml/min/1.73 sqM); Potassium 4.8 mmol/L (3.5-5.1); Sodium 140 mmol/L (137-145); Triglycerides 69 mg/dL (<150)
[2017-05-24 06:48] LABS: Glucose,Whole Blood 87 mg/dL (75-99)
[2017-05-24] MEDS ORDERED: ASPIRIN 325 MG TAB PO SCH (09:00)
[2017-05-24] MEDS: HYDROcodone/APAP 5-325MG 1 EACH TAB PO PRN (11:06)
[2017-05-24] MEDS ORDERED: REGADENOSON 0.4 MG/5 ML SYRINGE IV ONE (11:11)
[2017-05-24] MEDS ORDERED: AMINOPHYLLINE 500 MG/20 ML VIAL IV PRN (11:11)
[2017-05-24 11:41] LABS: Glucose,Whole Blood 92 mg/dL (75-99)
[2017-05-24] MEDS: MAGNESIUM OXIDE 400 MG TAB PO SCH ×3 (13:08→20:53)
[2017-05-24] MEDS: MELOXICAM 7.5 MG TAB PO SCH (13:08)
[2017-05-24] MEDS: PANTOPRAZOLE 40 MG TABLET PO SCH (13:08)
[2017-05-24] MEDS: B COMPLEX-VIT C-VIT E-ZINC 1 EACH TAB PO SCH (13:08)
[2017-05-24] MEDS: POTASSIUM CHLORIDE ER 10 MEQ TAB.ER.PRT PO SCH (13:08)
[2017-05-24] MEDS: FUROSEMIDE 20 MG TAB PO SCH (13:08)
[2017-05-24] MEDS: METOPROLOL TARTRATE 25 MG TAB PO SCH ×2 (13:08→19:56)
[2017-05-24] MEDS: metFORMIN 500 MG TAB PO SCH (13:08)
[2017-05-24] MEDS: ATORVASTATIN 40 MG TAB PO SCH (13:09)
[2017-05-24] MEDS: CHOLECALCIFEROL 1,000 UNIT TAB PO SCH (13:09)
[2017-05-24] MEDS: GABAPENTIN 300 MG CAP PO SCH ×3 (13:09→20:52)
[2017-05-24] MEDS: ASPIRIN 81 MG CHEW PO SCH (13:09)
[2017-05-24] MEDS: CITALOPRAM HYDROBROMIDE 10 MG TAB PO SCH (13:09)
[2017-05-24] MEDS: FOLIC ACID 1 MG TAB PO SCH (13:09)
[2017-05-24] MEDS: CYCLOBENZAPRINE 10 MG TAB PO SCH (13:09)
[2017-05-24] MEDS: MODAFINIL 100 MG TAB PO SCH (13:14)
--- NOTE | 2017-05-24 15:12 | P.PN ---
Subjective Principal diagnosis: chest pain This is a pleasant 76-year-old gentleman who follows regularly with Dr. Schulz in the office. He has a known history of coronary artery disease with prior bypass surgery in 2012 at which time he underwent a REYES to the LAD, saphenous vein graft to the diuretic, OM 2, OM 3, and RCA. Patient also has history of diabetes, hypertension, hyperlipidemia, paroxysmal atrial fibrillation, COPD, Mnire's disease, spinal problems, he presents to the hospital with symptoms of fatigue and generalized tiredness for the past couple of weeks, yesterday he was apparently vacuuming, became extremely diaphoretic and developed chest heaviness, he was also short of breath. He states he went into the shower to see if the symptoms would subside, however because they continued he called his at work and came to the emergency room for further evaluation. He also states at that time that he felt as though his heart went into an irregular rhythm, he could feel palpitations. EKG on arrival here showed a normal sinus rhythm with left axis deviation, occasional PVC, evidence of old inferior wall NC. EKG report this morning shows a normal sinus rhythm with no acute changes, evidence of old inferior infarct. Chest x-ray did not reveal any acute abnormality. CBC normal. Potassium 3.7 on admission, 3.6 this morning. BUN 14, creatinine 0.8. Magnesium level on admission less than 0.4, replacement was given, this morning 0.9. Total bilirubin 2.0, 1.6 this morning. Troponin 0.012, 0.012. Blood pressure on admission 116/60 with a heart rate in the 80s, 95% on room air. At the time of my examination this morning, patient states he feels mildly tired, otherwise no overt complaints. According to Dr. Schulz's office note, the most recent stress test was in October 2015 which revealed a fixed inferior apical and inferior septal defect. 05/24/2017 Patient seen and examined today, no further chest discomfort. magnesium level 2.0. Patient underwent a Lexiscan stress test today.results are yet pending. Objective - Vital Signs Vital signs: Vital Signs Temp 97.1 F L 05/24/17 11:42 Pulse 82 05/24/17 11:42 Resp 20 05/24/17 11:42 BP 127/69 05/24/17 11:42 Pulse Ox 92 L 05/24/17 11:42 Intake & Output 05/23/17 05/24/17 05/24/17 18:59 06:59 18:59 Intake Total 1380 240 Output Total 250 300 Balance 1130 -300 240 Weight 99.7 kg Intake: Intake, IV Titration 1200 Amount Magnesium Sulfate-D5w Pmx 400 1 gm In Dextrose/Water 1 100ml.bag @ 100 mls/hr IVPB Q1H JOHN Rx#: [id number] Sodium Chloride 0.9% 1, 800 000 ml @ 100 mls/hr IV . Q10H STA Rx#:[id number] Oral 180 240 Output: Urine 250 300 Other: Voiding Method Urinal Urinal # Voids 1 - Exam PHYSICAL EXAMINATION: HEENT: Head is atraumatic, normocephalic. Pupils equal, round. Neck is supple. There is no elevated jugular venous pressure. HEART EXAMINATION: Heart S1, S2 normal. No murmur or gallop heard. CHEST EXAMINATION: Lungs are clear to auscultation and precussion. No chest wall tenderness is noted on palpation or with deep breathing. ABDOMEN: Soft, nontender. Bowel sounds are heard. No organomegaly noted. EXTREMITIES: 2+ peripheral pulses with no evidence of peripheral edema and no calf tenderness noted. NEUROLOGIC patient is awake, alert and oriented -3. . - Labs CBC & Chem 7: 05/24/17 05:58 05/24/17 05:58 Labs: Abnormal Lab Results - Last 24 Hours (Table) 05/23/17 05/23/17 05/23/17 Range/Units 16:49 20:11 21:12 RBC (4.30-5.90) m/uL Hct (39.0-53.0) % Plt Count (150-450) k/uL Chloride 109 H (98-107) mmol/L Glucose 101 H (74-99) mg/dL POC Glucose (mg/dL) 141 H 102 H (75-99) mg/dL Calcium 7.8 L (8.4-10.2) mg/dL HDL Cholesterol (40-60) mg/dL 05/24/17 05/24/17 Range/Units 05:58 05:58 RBC 4.10 L (4.30-5.90) m/uL Hct 38.5 L (39.0-53.0) % Plt Count 134 L (150-450) k/uL Chloride 109 H (98-107) mmol/L Glucose (74-99) mg/dL POC Glucose (mg/dL) (75-99) mg/dL Calcium 7.8 L (8.4-10.2) mg/dL HDL Cholesterol 38 L (40-60) mg/dL Assessment and Plan Plan: Assessment and plan #1 symptoms of progressive fatigue with associated episode of diaphoresis, chest pressure and heaviness with associated shortness of breath, suggestive of possible unstable angina. Troponins 2 have been negative. #2 history of coronary artery bypass grafting surgery in 2012 #3 hypertension #4 hyperlipidemia # 5 diabetes #6 COPD #7 paroxysmal atrial fibrillation #8 spinal issues #9 Mnire's disease #10 severe hypomagnesemia Plan Magnesium level 2.0 today. Patient underwent a Lexiscan stress test today results of which are yet pending.echocardiogram with Doppler study also remains pending. If the stress test is negative, from cardiology's perspective patient may be able to be discharged home today to follow-up in the office post discharge. DNP note has been reviewed, I agree with a documented findings and plan of care. Patient was seen and examined.
[2017-05-24 16:45] LABS: Glucose,Whole Blood 110 mg/dL (75-99)
--- NOTE | 2017-05-24 17:31 | ECHOF ---
Referral Reason:chest pain MEASUREMENTS -------- HEIGHT: 180.3 cm WEIGHT: 99.3 kg BP: 127/69 RVIDd: 3.3 cm (< 3.3) IVSd: 1.1 cm (0.6 - 1.1) LVIDd: 5.1 cm (3.9 - 5.3) LVPWd: 1.3 cm (0.6 - 1.1) IVSs: 1.7 cm LVIDs: 3.4 cm LVPWs: 1.9 cm LA Diam: 3.9 cm (2.7 - 3.8) LAESV Index (A-L): 30.23 ml/m Ao Diam: 3.2 cm (2.0 - 3.7) AV Cusp: 2.3 cm (1.5 - 2.6) MV EXCURSION: 20.477 mm (> 18.000) MV EF SLOPE: 135 mm/s (70 - 150) EPSS: 0.3 cm MV E Taj: 0.83 m/s MV DecT: 283 ms MV A Taj: 0.80 m/s MV E/A Ratio: 1.04 RAP: 5.00 mmHg RVSP: 38.58 mmHg FINDINGS -------- Sinus rhythm. This was a technically adequate study. The left ventricular size is normal. There is mild concentric left ventricular hypertrophy. Overall left ventricular systolic function is normal with, an EF between 55 - 60 %. The right ventricle is mildly enlarged. LA is midly dilated 29-33ml/m2. The right atrium is normal in size. There is mild aortic valve sclerosis. Mild mitral annular calcification present. Mild tricuspid regurgitation present. There is mild pulmonary hypertension. The right ventricular systolic pressure, as measured by Doppler, is 38.58mmHg. Trace/mild (physiologic) pulmonic regurgitation. The aortic root size is normal. Normal inferior vena cava with normal inspiratory collapse consistent with estimated right atrial pressure of 5 mmHg. The pericardium is normal. CONCLUSIONS -------- 1. Sinus rhythm. 2. Mild mitral annular calcification present. 3. Mild tricuspid regurgitation present. 4. There is mild pulmonary hypertension. 5. The right ventricular systolic pressure, as measured by Doppler, is 38.58mmHg. 6. Trace/mild (physiologic) pulmonic regurgitation. 7. The aortic root size is normal. 8. Normal inferior vena cava with normal inspiratory collapse consistent with estimated right atrial pressure of 5 mmHg. 9. The pericardium is normal. 10. This was a technically adequate study. 11. The left ventricular size is normal. 12. There is mild concentric left ventricular hypertrophy. 13. Overall left ventricular systolic function is normal with, an EF between 55 - 60 %. 14. The right ventricle is mildly enlarged. 15. LA is midly dilated 29-33ml/m2. 16. The right atrium is normal in size. 17. There is mild aortic valve sclerosis. ADJUNCT PSYCHOLOGY INSTRUCTOR: Smita Santos RDCS
[2017-05-24 20:48] LABS: Glucose,Whole Blood 138 mg/dL (75-99)
[2017-05-25] MEDS ORDERED: TAMSULOSIN 0.4 MG CAP.ER.24H PO SCH (00:40)
[2017-05-25 06:06] LABS: Glucose,Whole Blood 90 mg/dL (75-99)
[2017-05-25 06:36] LABS: Basophils % (A) 1 %; CH 31.9; Eosinophils # (A) 0.1 k/uL (0-0.7); Eosinophils % (A) 3 %; HCT 37.7 % (39.0-53.0); HDW 3.01; HGB 13.2 gm/dL (13.0-17.5); Luc # (Auto) 0.14; Luc % (Auto) 3; Lymphocytes % (A) 19 %; MCHC 34.9 g/dL (31.0-37.0); MCV 91.7 fL (80.0-100.0); Monocytes # (A) 0.4 k/uL (0-1.0); Monocytes % (A) 7 %; Neutrophils # (A) 3.7 k/uL (1.3-7.7); Neutrophils % (A) 69 %; RBC 4.11 m/uL (4.30-5.90); RDW 13.3 % (11.5-15.5); WBC 5.4 k/uL (3.8-10.6); WBC (Perox) 5.47
[2017-05-25 06:54] LABS: Anion Gap 4 mmol/L; Blood Urea Nitrogen 10 mg/dL (9-20); Calcium 8.3 mg/dL (8.4-10.2); Carbon Dioxide 26 mmol/L (22-30); Chloride 109 mmol/L (98-107); Glucose 85 mg/dL (74-99); Non-African American GFR(MDRD) >60 (>60 ml/min/1.73 sqM); Potassium 4.3 mmol/L (3.5-5.1); Sodium 139 mmol/L (137-145)
--- NOTE | 2017-05-25 07:49 | NM ---
EXAMINATION TYPE: NM stress lexiscan cardiolite DATE OF EXAM: 05/24/2017 COMPARISON: NONE HISTORY: 76-year-old male with chest pain TECHNIQUE: After the intravenous administration of 10.6 mCi Tc 99m Sestamibi - Cardiolite resting SP ECT images acquired 45 minutes post injection. The patient received 0.4mg Lexiscan, 25.9 mCi Tc 99m Sestamibi - Stress images obtained 150 minutes p ost injection FINDINGS: Review of stress and rest SPECT images demonstrates decreased perfusion along the inferior wall. [place] rds the mid to basal inferior wall, this is more pronounced on the rest images with adjacent GI activ ity. On the stress images, the perfusion defect is more pronounced along the inferior apical wall. Gated analysis shows normal wall motion with an estimated left ventricular ejection fraction of 54 %. TID is calculated at 0.94, within normal limits. IMPRESSION: Findings suggest prominent diaphragmatic attenuation affecting the inferior wall and limiting assessm ent. Correlate to exclude the possibility of a small area of reversibility along the inferior apical wall.
[2017-05-25] MEDS: ATORVASTATIN 40 MG TAB PO SCH (09:20)
[2017-05-25] MEDS: ASPIRIN 81 MG CHEW PO SCH (09:20)
[2017-05-25] MEDS: B COMPLEX-VIT C-VIT E-ZINC 1 EACH TAB PO SCH (09:20)
[2017-05-25] MEDS: CHOLECALCIFEROL 1,000 UNIT TAB PO SCH (09:20)
[2017-05-25] MEDS: CYCLOBENZAPRINE 10 MG TAB PO SCH (09:21)
[2017-05-25] MEDS: FUROSEMIDE 20 MG TAB PO SCH (09:21)
[2017-05-25] MEDS: FOLIC ACID 1 MG TAB PO SCH (09:21)
[2017-05-25] MEDS: GABAPENTIN 300 MG CAP PO SCH ×4 (09:21→21:14)
[2017-05-25] MEDS: CITALOPRAM HYDROBROMIDE 10 MG TAB PO SCH (09:21)
[2017-05-25] MEDS: MAGNESIUM OXIDE 400 MG TAB PO SCH ×3 (09:22→21:14)
[2017-05-25] MEDS: MELOXICAM 7.5 MG TAB PO SCH (09:22)
[2017-05-25] MEDS: metFORMIN 500 MG TAB PO SCH (09:23)
[2017-05-25] MEDS: PANTOPRAZOLE 40 MG TABLET PO SCH (09:23)
[2017-05-25] MEDS: POTASSIUM CHLORIDE ER 10 MEQ TAB.ER.PRT PO SCH (09:23)
[2017-05-25] MEDS: METOPROLOL TARTRATE 25 MG TAB PO SCH ×2 (09:23→21:14)
[2017-05-25] MEDS: MODAFINIL 100 MG TAB PO SCH (09:56)
[2017-05-25 12:04] LABS: Glucose,Whole Blood 93 mg/dL (75-99)
--- NOTE | 2017-05-25 13:31 | EST ---
DATE OF SERVICE: 05/24/2017 LEXISCAN CARDIOLITE STUDY INDICATION: History of atrial fibrillation. BASELINE HEART RATE: 72 BASELINE BLOOD PRESSURE: 110/72 MAXIMUM HEART RATE: 92 MAXIMUM BLOOD PRESSURE: 123/88 85% MPHR: 100% MPHR: METs: MAX STAGE REACHED: TOTAL EXERCISE TIME: The patient was given Lexiscan injection over a period of 15 seconds. Peak heart rate of 92 is achieved. Maximum blood pressure of 123/88 mmHg is noted. Resting EKG shows normal sinus rhythm with normal MI interval and QRS duration. Normal ST-T waves. No ST segment depression suggestive of ischemia is noted. Occasional PVCs were noted. The results of the nuclear study will follow. [facility]
--- NOTE | 2017-05-25 14:00 | P.PN ---
Subjective Principal diagnosis: chest pain This is a pleasant 76-year-old gentleman who follows regularly with Dr. Schulz in the office. He has a known history of coronary artery disease with prior bypass surgery in 2012 at which time he underwent a REYES to the LAD, saphenous vein graft to the diuretic, OM 2, OM 3, and RCA. Patient also has history of diabetes, hypertension, hyperlipidemia, paroxysmal atrial fibrillation, COPD, Mnire's disease, spinal problems, he presents to the hospital with symptoms of fatigue and generalized tiredness for the past couple of weeks, yesterday he was apparently vacuuming, became extremely diaphoretic and developed chest heaviness, he was also short of breath. He states he went into the shower to see if the symptoms would subside, however because they continued he called his at work and came to the emergency room for further evaluation. He also states at that time that he felt as though his heart went into an irregular rhythm, he could feel palpitations. EKG on arrival here showed a normal sinus rhythm with left axis deviation, occasional PVC, evidence of old inferior wall CT. EKG report this morning shows a normal sinus rhythm with no acute changes, evidence of old inferior infarct. Chest x-ray did not reveal any acute abnormality. CBC normal. Potassium 3.7 on admission, 3.6 this morning. BUN 14, creatinine 0.8. Magnesium level on admission less than 0.4, replacement was given, this morning 0.9. Total bilirubin 2.0, 1.6 this morning. Troponin 0.012, 0.012. Blood pressure on admission 116/60 with a heart rate in the 80s, 95% on room air. At the time of my examination this morning, patient states he feels mildly tired, otherwise no overt complaints. According to Dr. Schulz's office note, the most recent stress test was in October 2015 which revealed a fixed inferior apical and inferior septal defect. 05/24/2017 Patient seen and examined today, no further chest discomfort. magnesium level 2.0. Patient underwent a Lexiscan stress test today.results are yet pending.\ 05/25/2017. Patient seen and examined this morning, he had an episode of confusion through the night last night, alert and oriented this morning. Denies any further episodes of chest discomfort, no difficulty in breathing. Keiry scan results suggested possible small area of reversibility ability in the inferior apical region, this was also noted on a prior stress test. We will check the patient' s magnesium level in the morning tomorrow and plan for possible discharge home if stable. Objective - Vital Signs Vital signs: Vital Signs Temp 97.1 F L 05/25/17 11:48 Pulse 66 05/25/17 11:48 Resp 18 05/25/17 11:48 BP 101/55 05/25/17 11:48 Pulse Ox 95 05/25/17 11:48 Intake & Output 05/24/17 05/25/17 05/25/17 18:59 06:59 18:59 Intake Total 600 10 280 Balance 600 10 280 Weight 99 kg Intake: IV 10 Flush 10 Oral 600 280 Other: Voiding Method Toilet Toilet # Voids 1 0 - Exam PHYSICAL EXAMINATION: HEENT: Head is atraumatic, normocephalic. Pupils equal, round. Neck is supple. There is no elevated jugular venous pressure. HEART EXAMINATION: Heart S1, S2 normal. No murmur or gallop heard. CHEST EXAMINATION: Lungs are clear to auscultation and precussion. No chest wall tenderness is noted on palpation or with deep breathing. ABDOMEN: Soft, nontender. Bowel sounds are heard. No organomegaly noted. EXTREMITIES: 2+ peripheral pulses with no evidence of peripheral edema and no calf tenderness noted. NEUROLOGIC patient is awake, alert and oriented -3. . - Labs CBC & Chem 7: 05/25/17 06:23 05/25/17 06:23 Labs: Abnormal Lab Results - Last 24 Hours (Table) 05/24/17 05/24/17 05/25/17 Range/Units 16:42 20:46 06:23 RBC 4.11 L (4.30-5.90) m/uL Hct 37.7 L (39.0-53.0) % Plt Count 130 L (150-450) k/uL Chloride (98-107) mmol/L POC Glucose (mg/dL) 110 H 138 H (75-99) mg/dL Calcium (8.4-10.2) mg/dL 05/25/17 Range/Units 06:23 RBC (4.30-5.90) m/uL Hct (39.0-53.0) % Plt Count (150-450) k/uL Chloride 109 H (98-107) mmol/L POC Glucose (mg/dL) (75-99) mg/dL Calcium 8.3 L (8.4-10.2) mg/dL Assessment and Plan Plan: Assessment and plan #1 symptoms of progressive fatigue with associated episode of diaphoresis, chest pressure and heaviness with associated shortness of breath, suggestive of possible unstable angina. Troponins 2 have been negative. #2 history of coronary artery bypass grafting surgery in 2013 #3 hypertension #4 hyperlipidemia # 5 diabetes #6 COPD #7 paroxysmal atrial fibrillation #8 spinal issues #9 Mnire's disease #10 severe hypomagnesemia Plan We will check a magnesium level in the morning along with a potassium level. If normal patient may be able to be discharged home tomorrow. DNP note has been reviewed, I agree with a documented findings and plan of care. Patient was seen and examined.
[2017-05-25] MEDS ORDERED: LORazepam 1 MG TAB PO PRN (14:44)
--- NOTE | 2017-05-25 15:33 | CT ---
EXAMINATION TYPE: CT brain wo con DATE OF EXAM: 05/25/2017 COMPARISON: 12/28/2016 HISTORY: 76-year-old male with an episode of confusion. TECHNIQUE: Examination was done in axial plane without intravenous contrast. Coronal and sagittal r econstructions performed. CT DLP: 1219.00 mGycm Automated exposure control for dose reduction was used. FINDINGS: There is no evidence of acute intracranial hemorrhage, acute ischemic changes, mass, mass-effect, or extra-axial fluid collection. There is no effacement of cerebral sulci or basal subarachnoid cister ns. There is no hydrocephalus. There is no midline shift. Rosales-white matter distinction is preserv ed. 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 Mild to moderate generalized supratentorial volume loss. Mild patchy periventricular white matter hyp odensities similar suggesting chronic small vessel ischemic disease. Continued partial opacification of right-sided mastoid air cells. Visualized paranasal sinuses are we ll pneumatized. Orbits and globes appear intact. IMPRESSION: 1. No acute intracranial abnormality seen. Similar [id number] cerebral atrophy and mild changes of chronic small vessel ischemic disease. 2. 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 This can be confirmed with MRA of the c [place] 3. Trapped fluid within some of the right mastoid air cells. Correlate for any mastoid pain to exclud e mastoiditis.
[2017-05-25 17:28] LABS: Glucose,Whole Blood 110 mg/dL (75-99)
[2017-05-25 20:48] LABS: Glucose,Whole Blood 99 mg/dL (75-99)
[2017-05-25] MEDS ORDERED: risperiDONE 0.25 MG TAB PO SCH (21:00)
[2017-05-25 23:41] VITALS: RESP 18
[2017-05-26 05:45] LABS: Glucose,Whole Blood 89 mg/dL (75-99)
[2017-05-26 06:06] LABS: Basophils # (A) 0.1 k/uL (0-0.2); Basophils % (A) 1 %; CH 32.3; CHCM 34.7; Eosinophils # (A) 0.2 k/uL (0-0.7); Eosinophils % (A) 3 %; HCT 39.1 % (39.0-53.0); HGB 13.9 gm/dL (13.0-17.5); Luc # (Auto) 0.15; Luc % (Auto) 3; Lymphocytes # (A) 1.4 k/uL (1.0-4.8); Lymphocytes % (A) 23 %; MCH 33.2 pg (25.0-35.0); MCHC 35.5 g/dL (31.0-37.0); MCV 93.7 fL (80.0-100.0); Mean Platelet Volume 7.8; Monocytes # (A) 0.4 k/uL (0-1.0); Monocytes % (A) 7 %; Neutrophils # (A) 3.9 k/uL (1.3-7.7); Neutrophils % (A) 65 %; RBC 4.17 m/uL (4.30-5.90); RDW 13.6 % (11.5-15.5); WBC 5.9 k/uL (3.8-10.6); WBC (Perox) 5.74
[2017-05-26 06:25] LABS: Anion Gap 8 mmol/L; Blood Urea Nitrogen 11 mg/dL (9-20); Calcium 9.2 mg/dL (8.4-10.2); Carbon Dioxide 24 mmol/L (22-30); Chloride 108 mmol/L (98-107); Glucose 91 mg/dL (74-99); Magnesium 1.8 mg/dL (1.6-2.3); Non-African American GFR(MDRD) >60 (>60 ml/min/1.73 sqM); Potassium 4.4 mmol/L (3.5-5.1); Sodium 140 mmol/L (137-145)
[2017-05-26] MEDS: ASPIRIN 81 MG CHEW PO SCH (09:52)
[2017-05-26] MEDS: ATORVASTATIN 40 MG TAB PO SCH (09:52)
[2017-05-26] MEDS: CHOLECALCIFEROL 1,000 UNIT TAB PO SCH (09:52)
[2017-05-26] MEDS: CITALOPRAM HYDROBROMIDE 10 MG TAB PO SCH (09:52)
[2017-05-26] MEDS: B COMPLEX-VIT C-VIT E-ZINC 1 EACH TAB PO SCH (09:52)
[2017-05-26] MEDS: GABAPENTIN 300 MG CAP PO SCH (09:53)
[2017-05-26] MEDS: CYCLOBENZAPRINE 10 MG TAB PO SCH (09:53)
[2017-05-26] MEDS: FUROSEMIDE 20 MG TAB PO SCH (09:53)
[2017-05-26] MEDS: MAGNESIUM OXIDE 400 MG TAB PO SCH (09:54)
[2017-05-26] MEDS: MELOXICAM 7.5 MG TAB PO SCH (09:54)
[2017-05-26] MEDS: METOPROLOL TARTRATE 25 MG TAB PO SCH (09:54)
[2017-05-26] MEDS: POTASSIUM CHLORIDE ER 10 MEQ TAB.ER.PRT PO SCH (09:55)
[2017-05-26] MEDS: PANTOPRAZOLE 40 MG TABLET PO SCH (09:55)
[2017-05-26] MEDS: metFORMIN 500 MG TAB PO SCH (09:58)
[2017-05-26 10:13] VITALS: TEMP 97.1
[2017-05-26] MEDS: MODAFINIL 100 MG TAB PO SCH (10:17)
[2017-05-26 11:33] LABS: Glucose,Whole Blood 104 mg/dL (75-99)
--- NOTE | 2017-05-26 11:45 | PN ---
DATE OF SERVICE: 05/24/2017 This 76-year-old gentleman, admitted with chest pain, is scheduled to have a stress test today. No fever. No cough. On exam, alert and oriented x3. Pulse 73, blood pressure 123/77, respiration 20 , temperature 97.0, pulse ox 92% on room air. HEENT: Conjunctivae normal. NECK: No jugular venous distention. CARDIOVASCULAR: S1, S2 muffled. RESPIRATORY: Breath sounds diminished at the bases. No rhonchi. No crackles. ABDOMEN: Soft, non-tender. LEGS: No edema. No swelling. NERVOUS SYSTEM: No focal deficit. LABS: WBC 4.2, hemoglobin 13.4. ASSESSMENT: 1. Chest pain; possible unstable angina. 2. Hypocalcemia. 3. Hypertension. 4. Diabetes mellitus, type 2. 5. History of atrial fibrillation. 6. History of coronary artery disease, coronary artery bypass grafting. 7. Hypomagnesemia. RECOMMENDATIONS AND DISCUSSION: I recommend to continue current medications, continue symptomatic treatment. Will monitor the patient closely. Further recommendations to follow. The patient is on magnesium replacement. MTDD
[2017-05-26] MEDS ORDERED: THIAMINE 100 MG TAB PO SCH (12:00)
[2017-05-26] MEDS ORDERED: MULTIVITAMINS, THERA 1 EACH TAB PO SCH (12:00)
[2017-05-26] MEDS: FOLIC ACID 1 MG TAB PO SCH (12:17)
[2017-05-26 14:20] VITALS: BP 98/61; PULSE 85
[2017-05-26] MEDS ORDERED: CYCLOBENZAPRINE 10 MG TAB PO SCH (21:00)
--- NOTE | 2017-05-27 13:24 | PN ---
DATE OF SERVICE: 05/25/17 This 76 year old gentleman who was admitted with chest pain also had indeterminate stress test. The patient also had multiple electrolyte abnormalities. No chest pain. No palpitations. No fever. On exam the patient mildly confused. Past medical history reviewed. REVIEW OF SYSTEMS: CARDIOVASCULAR: No angina or palpitations. RESPIRATORY: As mentioned earlier. GI: As mentioned. : No dysuria. NERVOUS SYSTEM: No numbness, weakness. Current medications reviewed and include: 1. [place] 5 mg. 2. Ventolin. 4. Aspirin. 5. Lipitor. 6. Celexa. 7. Colcrys. 8. Flexeril. 9. Folic acid. 10. Lasix. 11. Ativan. 12. Magnesium. 13. Mobic. 14. Lopressor. 16. Nitrostat. 17. Protonix. 18. Flomax. PHYSICAL EXAMINATION: The patient is alert and oriented times three. Pulse is 66. Blood pressure is 101/59. Respiratory rate 18. Temperature 97.4. Pulse ox 94% on room air. HEENT: Conjunctivae normal. NECK: No JVD. CARDIOVASCULAR: S1, S2 muffled. RESPIRATORY: Breath sounds diminished at the bases. A few scattered rhonchi and no crackles. ABDOMEN: Soft, nontender. LEGS: No edema. No swelling. NERVOUS SYSTEM: No focal deficits. LABS: WBC 5.2, hemoglobin 13.2. ASSESSMENT: 1. Chest pain, possible unstable angina. 2. Indeterminant stress test. 3. Shortness of breath and for evaluation. 4. Change in mental status, acute delirium. 5. Hypocalcemia. 6. History of coronary artery disease, coronary artery bypass grafting. 7. Hypomagnesemia. 8. History of chronic obstructive pulmonary disease. 9. Diabetes mellitus. 10. History of atrial fibrillation. 11. History of degenerative joint disease. RECOMMENDATIONS AND DISCUSSION: Continue the current medications, continue symptomatic treatment. Continue supplementation. See orders for further details. Repeat labs. Further recommendations to follow. MTDD
--- NOTE | 2017-05-27 16:40 | PN ---
Mr. West is a 76-year-old male with a known history of coronary artery disease , status post coronary artery bypass grafting, who presented with vague symptoms of chest pain and palpitations, was found to have severe hypomagnesemia with evidence of atrial arrhythmia but no atrial fibrillation. He is doing well this morning, ambulating without difficulty. Denying any chest pain. He denies any dizziness or palpitations. No syncope. He had a stress test that was not definite for any inducible ischemia. He is in sinus mechanism without any further episode of tachy or bradyarrhythmia. He continues to be on aspirin once a day, Lipitor 40 mg daily, Citalopram 30 mg daily, colchicine, furosemide 20 mg daily, meclizine, metoprolol 25 mg twice a day, metformin 500 mg daily, Provigil, Risperidone, tamsulosin, and magnesium. PHYSICAL EXAMINATION: Blood pressure 125/70 with heart rate in the 70s. Lungs clear. Heart regular rate and rhythm. S1, S2. No S3 with systolic murmur. No diastolic murmur. Abdomen is soft and nontender. Extremities: No edema. Lab data revealed BUN and creatinine of 11.7 and potassium of 4.4. His magnesium is 1.8. IMPRESSION: 1. Hypomagnesemia corrected. 2. History of coronary artery disease status post coronary artery bypass grafting. 3. Paroxysmal atrial fibrillation. 4. Fatigue and weakness resolved. RECOMMENDATIONS: From the cardiac standpoint, he should be able to be discharged home today and follow as an outpatient. [facility]
--- NOTE | 2017-05-28 07:45 | DS ---
FINAL DIAGNOSES: 1. Chest pain, possible unstable angina with negative stress test. 2. Hypocalcemia. 3. Basilar artery aneurysm, stable. 4. Hypertension. 5. Diabetes mellitus Type 2. 6. Acute delirium. 7. History of atrial fibrillation. 8. History of coronary artery disease, coronary artery bypass grafting. 9. Hypomagnesemia. DISCHARGE DISPOSITION: The patient is being discharged in stable condition with a guarded prognosis. HISTORY OF PRESENT ILLNESS: This 76 year old gentleman with a past medical history of multiple medical problems admitted with chest pain, myocardial infarction ruled out, stress test indeterminate, cardiology recommended outpatient follow up. The patient also had hypomagnesemia which was corrected. CT scan of the brain showed basilar aortic aneurysm, recommended followup with Dr. Eagle closely whom the patient was following previously. On examination, vital signs stable. Cardiovascular: S1, S2 muffled. Abdomen soft. Nervous system: No focal deficits. DISCHARGE ADVICE AND MEDICATIONS: 1. Diet is cardiac. 2. Activity limited until followup. 3. Followup with Dr. Rm in two to three days. 4. Followup with Dr. Eagle and cardiology as recommended. 5. CBC and BMP with Dr. Rm. 6. Pro-Air HFA one to two puffs prn. 7. Aspirin 81 mg daily. 8. Lipitor 40 mg daily. 9. Biotin 10,000 mcg po daily. 10. Vitamin D3 1000 daily. 11. Celexa 30 mg daily. 12. Colchicine 0.6 b.i.d. prn. 13. Flexeril 10 mg po daily. 14. Folic acid 1 mg daily. 15. Lasix 20 mg daily. 16. Gabapentin 800 mg po t.i.d. 17. Helotes 5 mg b.i.d. prn. 18. Ativan 1 mg po daily. 19. Magnesium oxide 400 mg po t.i.d. 20. Antivert 25 mg po daily prn. 21. Mobic 15 mg po daily. 22. Glucophage 500 mg po daily. 23. Lopressor 25 mg po b.i.d. 24. Provigil 100 mg p.o. daily. 25. Multivitamins one po daily. 26. Prilosec 20 mg po daily. 27. Potassium chloride 20 meq po daily. 28. Flomax 0.4 Saturday and Saturday. 29. Thiamin 100 mg po daily. 30. Vitamin B complex one po daily. 31. Zinc 50 mg po daily. MTDD
== END 2017-05-26 15:47 | disposition home or self-care (01) | DRG 303 ==
LOC: EC 21:22 → 6SEL 05-23 00:33
PROVIDERS: ADMIT Hospitalist; ATTEND Hospitalist
DX: I25.110 Atherosclerotic heart disease of native coronary artery with unstable angina pectoris (principal); I67.1 Cerebral aneurysm, nonruptured; I48.0 Paroxysmal atrial fibrillation; E83.42 Hypomagnesemia; E83.51 Hypocalcemia; J44.9 Chronic obstructive pulmonary disease, unspecified; E11.9 Type 2 diabetes mellitus without complications; E78.5 Hyperlipidemia, unspecified; H81.09 Meniere's disease, unspecified ear; I25.2 Old myocardial infarction; I49.3 Ventricular premature depolarization; M19.91 Primary osteoarthritis, unspecified site; I10 Essential (primary) hypertension; Z95.1 Presence of aortocoronary bypass graft; Z90.49 Acquired absence of other specified parts of digestive tract; Z87.891 Personal history of nicotine dependence; Z98.49 Cataract extraction status, unspecified eye; Z85.46 Personal history of malignant neoplasm of prostate; Z79.1 Long term (current) use of non-steroidal anti-inflammatories (NSAID); Z79.82 Long term (current) use of aspirin; Z79.84 Long term (current) use of oral hypoglycemic drugs; Z79.899 Other long term (current) drug therapy; Z82.49 Family history of ischemic heart disease and other diseases of the circulatory system
CPT/HCPCS: 36415; 70450; 71020; 78452; 80048; 80053; 80061; 82550; 82553; 83735; 84443; 84484; 85025; 85610; 85652; 85730; 93005; 93017; 93306; 94760; 96361; 96365; 96366; 96375; 99285

== ENCOUNTER 2017-08-04 20:26 | Observation (INO) | payer MEDICARE ==
[2017-08-04] MEDS ORDERED: ONDANSETRON 4 MG/2 ML VIAL IVP STA (20:52)
[2017-08-04] MEDS ORDERED: SODIUM CHLORIDE 0.9% 1,000 ML IV STA (20:52)
--- NOTE | 2017-08-04 21:10 | ED ---
Nausea/Vomiting/Diarrhea HPI - General Chief complaint: Nausea/Vomiting/Diarrhea Stated complaint: vomiting Time Seen by Provider: 08/04/17 20:45 Source: patient, RN notes reviewed Mode of arrival: ambulatory Limitations: no limitations - History of Present Illness Initial comments: This a 76-year-old male presents emergency Department with chief complaint nausea vomiting started around 3:00 this afternoon. Patient states that last week or so he has been having increased hiccups typically when he started eating. Patient states that he started having hiccups this afternoon while eating and started vomiting. Patient states he does not feel nauseous at this time denies any abdominal pain. Patient currently takes omeprazole 20 mg for GERD states that he's had no increased symptoms. Patient denies chest pain, shortness breath, abdominal pain, constipation. Patient states that he's been having more loose stools because he recently was constipated and had taken prune juice and milk of magnesia. Patient states that he's had a prior cholecystectomy. Patient denies any other complaints at this time. - Related Data Home Medications Medication Instructions Recorded Confirmed Albuterol Sulfate [Proair Hfa] 1 - 2 puff INHALATION RT-Q6H PRN 05/22/17 Aspirin 81 mg PO DAILY 05/22/17 08/04/17 Atorvastatin [Lipitor] 40 mg PO DAILY 05/22/17 08/04/17 Biotin 10,000 mcg PO DAILY 05/22/17 08/04/17 Cholecalciferol [Vitamin D3] 1,000 unit PO DAILY 05/22/17 08/04/17 Citalopram Hydrobromide [CeleXA] 30 mg PO DAILY 05/22/17 08/04/17 Colchicine 0.6 mg PO BID PRN 05/22/17 08/04/17 Cyclobenzaprine [Flexeril] 10 mg PO HS 05/22/17 08/04/17 Folic Acid 1 mg PO DAILY 05/22/17 08/04/17 Furosemide [Lasix] 20 mg PO DAILY 05/22/17 08/04/17 Gabapentin 800 mg PO TID 05/22/17 08/04/17 HYDROcodone/APAP 5-325MG [[place] 1 tab PO BID PRN 05/22/17 08/04/17 5-325] LORazepam [Ativan] 1 mg PO DAILY PRN 05/22/17 08/04/17 Meclizine [Antivert] 25 mg PO DAILY PRN 05/22/17 08/04/17 Meloxicam [Mobic] 15 mg PO DAILY 05/22/17 08/04/17 Metoprolol Tartrate [Lopressor] 25 mg PO BID 05/22/17 08/04/17 Modafinil [Provigil] 100 mg PO DAILY 05/22/17 08/04/17 Omeprazole [PriLOSEC] 20 mg PO DAILY 05/22/17 08/04/17 Tamsulosin HCl [Flomax] 0.4 mg PO TUSA 05/22/17 08/04/17 Vitamin B Complex 1 cap PO DAILY 05/22/17 08/04/17 Zinc 50 mg PO DAILY 05/22/17 08/04/17 metFORMIN HCL [Glucophage] 500 mg PO DAILY 05/22/17 08/04/17 Magnesium Oxide [Mag-Ox] 400 mg PO DAILY 08/04/17 08/04/17 Potassium Chloride [K-Tab ER] 10 meq PO DAILY 08/04/17 08/04/17 predniSONE See Taper PO DAILY 08/04/17 08/04/17 Previous Rx's Medication Instructions Recorded Thiamine [Vitamin B-1] 100 mg PO DAILY@1200 #30 tab 05/26/17 Allergies Allergy/AdvReac Type Severity Reaction Status Date / Time No Known Allergies Allergy Verified 08/04/17 21:34 Review of Systems ROS Statement: Those systems with pertinent positive or pertinent negative responses have been documented in the HPI. ROS Other: All systems not noted in ROS Statement are negative. 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 Hip sx x2, Right hand surgery, skin ca head Past Anesthesia/Blood Transfusion Reactions: No Reported Reaction Past Psychological History: No Psychological Hx Reported Smoking Status: Former smoker Past Alcohol Use History: Occasional Past Drug Use History: None Reported - Past Family History Mother Family Medical History: Congestive Heart Failure (CHF), Myocardial Infarction ( [place]) General Exam Limitations: no limitations General appearance: alert, in no apparent distress Head exam: Present: atraumatic, normocephalic, normal inspection Neck exam: Present: normal inspection. Absent: tenderness, meningismus, lymphadenopathy Respiratory exam: Present: normal lung sounds bilaterally. Absent: respiratory distress, wheezes, rales, rhonchi, stridor Cardiovascular Exam: Present: regular rate, normal rhythm, normal heart sounds. Absent: systolic murmur, diastolic murmur, rubs, gallop, clicks GI/Abdominal exam: Present: soft, normal bowel sounds. Absent: distended, tenderness, guarding, rebound, rigid Back exam: Absent: CVA tenderness (R), CVA tenderness (L) Course Vital Signs 08/04/17 08/04/17 08/04/17 20:28 21:45 22:29 Temperature 99.0 F 99.1 F 97.9 F Pulse Rate 91 79 88 Respiratory 18 17 18 Rate Blood Pressure 134/61 130/67 118/74 O2 Sat by Pulse 94 L 97 94 L Oximetry Medical Decision Making - Medical Decision Making 76-year-old male presented for nausea vomiting unable to keep food down. Patient is unable to swallow water at this time without regurgitation. Patient states the Reglan somewhat help but still continues to feel that there is something blocking it. Patient be admitted for EGD possible stricture. - Lab Data Result diagrams: 08/04/17 20:50 08/04/17 20:50 Lab Results 08/04/17 08/04/17 08/04/17 Range/Units 20:50 20:50 20:50 WBC 9.8 (3.8-10.6) k/uL RBC 4.84 (4.30-5.90) m/uL Hgb 15.1 (13.0-17.5) gm/dL Hct 44.0 (39.0-53.0) % MCV 91.1 (80.0-100.0) fL MCH 31.3 (25.0-35.0) pg MCHC 34.3 (31.0-37.0) g/dL RDW 13.0 (11.5-15.5) % Plt Count 197 (150-450) k/uL Neutrophils % 73 % Lymphocytes % 19 % Monocytes % 6 % Eosinophils % 1 % Basophils % 0 % Neutrophils # 7.1 (1.3-7.7) k/uL Lymphocytes # 1.8 (1.0-4.8) k/uL Monocytes # 0.5 (0-1.0) k/uL Eosinophils # 0.1 (0-0.7) k/uL Basophils # 0.0 (0-0.2) k/uL Sodium 139 (137-145) mmol/L Potassium 4.4 (3.5-5.1) mmol/L Chloride 103 (98-107) mmol/L Carbon Dioxide 27 (22-30) mmol/L Anion Gap 9 mmol/L BUN 23 H (9-20) mg/dL Creatinine 1.00 (0.66-1.25) mg/dL Est GFR (MDRD) Af Amer >60 (>60 ml/min/1.73 sqM) Est GFR (MDRD) Non-Af >60 (>60 ml/min/1.73 sqM) Glucose 108 H (74-99) mg/dL Calcium 9.9 (8.4-10.2) mg/dL Total Bilirubin 2.1 H (0.2-1.3) mg/dL AST 25 (17-59) U/L ALT 27 (21-72) U/L Alkaline Phosphatase 121 (38-126) U/L Troponin I <0.012 (0.000-0.034) ng/mL Total Protein 7.1 (6.3-8.2) g/dL Albumin 3.9 (3.5-5.0) g/dL Amylase 110 (30-110) U/L Lipase 46 (23-300) U/L Disposition Clinical Impression: Dysphagia, Nausea & vomiting Disposition: ADMITTED IP TO THIS HOSP Condition: Fair Referrals: Pete Rm DO [Primary Care Provider] - 1-2 days Time of Disposition: 23:59
[2017-08-04 21:28] LABS: ALT 27 U/L (21-72); AST 25 U/L (17-59); Alkaline Phosphatase 121 U/L (38-126); Amylase 110 U/L (30-110); Anion Gap 9 mmol/L; Blood Urea Nitrogen 23 mg/dL (9-20); Calcium 9.9 mg/dL (8.4-10.2); Carbon Dioxide 27 mmol/L (22-30); Chloride 103 mmol/L (98-107); Glucose 108 mg/dL (74-99); Non-African American GFR(MDRD) >60 (>60 ml/min/1.73 sqM); Potassium 4.4 mmol/L (3.5-5.1); Sodium 139 mmol/L (137-145); Total Bilirubin 2.1 mg/dL (0.2-1.3); Total Protein 7.1 g/dL (6.3-8.2)
[2017-08-04 21:33] LABS: Basophils % (A) 0 %; CH 31.3; CHCM 34.6; Eosinophils # (A) 0.1 k/uL (0-0.7); Eosinophils % (A) 1 %; HDW 2.76; HGB 15.1 gm/dL (13.0-17.5); Luc % (Auto) 2; Lymphocytes # (A) 1.8 k/uL (1.0-4.8); Lymphocytes % (A) 19 %; MCH 31.3 pg (25.0-35.0); MCHC 34.3 g/dL (31.0-37.0); MCV 91.1 fL (80.0-100.0); Mean Platelet Volume 7.5; Monocytes # (A) 0.5 k/uL (0-1.0); Monocytes % (A) 6 %; Neutrophils # (A) 7.1 k/uL (1.3-7.7); Neutrophils % (A) 73 %; RBC 4.84 m/uL (4.30-5.90); WBC 9.8 k/uL (3.8-10.6); WBC (Perox) 9.81
--- NOTE | 2017-08-04 21:51 | XR ---
EXAMINATION TYPE: XR chest 2V DATE OF EXAM: 08/04/2017 COMPARISON: May 22, 2017 HISTORY: Chest pain TECHNIQUE: Frontal and lateral views of the chest are obtained. FINDINGS: There is no focal air space opacity, pleural effusion, or pneumothorax seen. The cardiac silhouette size is within normal limits. The osseous structures are intact. There is been a sternot devika as well as a CABG procedure. Surgical clips are identified in the gallbladder fossa. IMPRESSION: No acute cardiopulmonary process.
--- NOTE | 2017-08-04 21:53 | XR ---
Exam: Abdomen. HISTORY: Abdominal pain. TECHNIQUE: 4 upright views the abdomen were obtained. FINDINGS: Surgical clips are identified in the gallbladder fossa. There is been a sternotomy. There is also bee n a right hip arthroplasty. There is nonspecific, nonobstructive, bowel gas pattern. Some stool is no colleen in the colon without evidence of impaction or obstruction. There is a small calcification identif ied in the expected location of the medial superior right kidney. IMPRESSION: Calcification identified in the expected location of the medial superior right kidney. No other signi ficant findings are identified.
[2017-08-04] MEDS ORDERED: METOCLOPRAMIDE 5 MG/ML 2 ML VIAL IVP STA (23:02)
--- NOTE | 2017-08-04 23:48 | XR ---
EXAM: XR Soft Tissue Neck CLINICAL HISTORY: Patient unable to eat or drink TECHNIQUE: Frontal and lateral views of the soft tissues of the neck. COMPARISON: No relevant prior studies available. FINDINGS: Airway: Unremarkable. No abnormal narrowing. Bones/joints: Mild/moderate degenerative changes are seen involving the cervical spine. Soft tissues: Unremarkable. No abnormal soft tissue prominence. Normal epiglottis. IMPRESSION: Normal neck x-rays, as above. Given the history, consider modified swallow study.
[2017-08-05] MEDS ORDERED: ONDANSETRON 4 MG/2 ML VIAL IVP PRN
[2017-08-05] MEDS: SODIUM CHLORIDE 0.9% 1,000 ML IV SCH ×2 (02:00→15:46)
[2017-08-05 07:41] LABS: Glucose,Whole Blood 87 mg/dL (75-99)
[2017-08-05] MEDS: PANTOPRAZOLE 40 MG/10 ML VIAL IV SCH (10:17)
[2017-08-05] MEDS ORDERED: HYDROcodone/APAP 5-325MG 1 EACH TAB PO PRN (12:01)
[2017-08-05] MEDS ORDERED: ALBUTEROL NEBULIZED 2.5 MG/3 ML INHALATION PRN (12:01)
[2017-08-05] MEDS ORDERED: COLCHICINE 0.6 MG TAB PO PRN (12:01)
--- NOTE | 2017-08-05 12:06 | P.HPIM ---
History of Present Illness 6-year-old man came in with compensative dysphagia restarted yesterday after the eating a piece of steak. Patient never had an dysphagia patient now has acute dysphagia to fluids as well as the solids. Patient had history of gases visual Disease in the past patient denied any odynophagia denied any fever, chills, nausea, vomiting patient feels like the food is stuck in the middle of the esophagus. Will often a barium esophagogram and gastroneurology will be consulted. Review of Systems REVIEW OF SYSTEMS: CONSTITUTIONAL: No fever, no malaise, no fatigue. HEENT: No recent visual problems or hearing problems. Denied any sore throat. CARDIOVASCULAR: No chest pain, orthopnea, PND, no palpitations, no syncope. PULMONARY: No shortness of breath, no cough, no hemoptysis. GASTROINTESTINAL: No diarrhea, no abdominal pain. Normoactive bowel sounds. NEUROLOGICAL: No headaches, no weakness, no numbness. HEMATOLOGICAL: Denies any bleeding or petechiae. GENITOURINARY: Denies any burning micturition, frequency, or urgency. MUSCULOSKELETAL/RHEUMATOLOGICAL: Denies any joint pain, swelling, or any muscle pain. ENDOCRINE: Denies any polyuria or polydipsia. The rest of the 14-point review of systems is negative. 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 Hip sx x2, Right hand surgery, skin ca head Past Anesthesia/Blood Transfusion Reactions: No Reported Reaction, Previous Problems w/ Anesthesia Additional Past Anesthesia/Blood Transfusion Reaction / Comment(s): During hip revision surgery patient had breathing problems, respiratory failure; was in ICU and rehab to improve breathing Past Psychological History: Anxiety Smoking Status: Former smoker Past Alcohol Use History: Occasional Additional Past Alcohol Use History / Comment(s): Patient was heavy drinker 40 years ago Past Drug Use History: None Reported - Past Family History Mother Family Medical History: Congestive Heart Failure (CHF), Myocardial Infarction ( [place]) Additional Family Medical History / Comment(s): 2 brothers also have cardiac history Medications and Allergies Home Medications Medication Instructions Recorded Confirmed Type Albuterol Sulfate [Proair Hfa] 1 - 2 puff INHALATION RT-Q6H PRN 05/22/17 History Aspirin 81 mg PO DAILY 05/22/17 08/05/17 History Atorvastatin [Lipitor] 40 mg PO DAILY 05/22/17 08/05/17 History Biotin 10,000 mcg PO DAILY 05/22/17 08/05/17 History Cholecalciferol [Vitamin D3] 1,000 unit PO DAILY 05/22/17 08/05/17 History Citalopram Hydrobromide [CeleXA] 30 mg PO DAILY 05/22/17 08/05/17 History Colchicine 0.6 mg PO BID PRN 05/22/17 08/05/17 History Cyclobenzaprine [Flexeril] 10 mg PO HS 05/22/17 08/05/17 History Folic Acid 1 mg PO DAILY 05/22/17 08/05/17 History Furosemide [Lasix] 20 mg PO DAILY 05/22/17 08/05/17 History Gabapentin 800 mg PO TID 05/22/17 08/05/17 History HYDROcodone/APAP 5-325MG [[place] 1 tab PO BID PRN 05/22/17 08/05/17 History 5-325] LORazepam [Ativan] 1 mg PO DAILY PRN 05/22/17 08/05/17 History Meclizine [Antivert] 25 mg PO DAILY PRN 05/22/17 08/05/17 History Metoprolol Tartrate [Lopressor] 25 mg PO BID 05/22/17 08/05/17 History Modafinil [Provigil] 100 mg PO DAILY 05/22/17 08/05/17 History Omeprazole [PriLOSEC] 20 mg PO DAILY 05/22/17 08/05/17 History Tamsulosin HCl [Flomax] 0.4 mg PO TUSA 05/22/17 08/05/17 History Vitamin B Complex 1 cap PO DAILY 05/22/17 08/05/17 History Zinc 50 mg PO DAILY 05/22/17 08/05/17 History metFORMIN HCL [Glucophage] 500 mg PO DAILY 05/22/17 08/05/17 History Thiamine [Vitamin B-1] 100 mg PO DAILY@1200 #30 tab 05/26/17 08/05/17 Rx Magnesium Oxide [Mag-Ox] 400 mg PO DAILY 08/04/17 08/05/17 History Potassium Chloride [K-Tab ER] 10 meq PO DAILY 08/04/17 08/05/17 History Allergies Allergy/AdvReac Type Severity Reaction Status Date / Time No Known Allergies Allergy Verified 08/04/17 21:34 Physical Exam Vitals: Vital Signs Temp Pulse Pulse Resp BP BP Pulse Ox 08/05/17 07:00 97.1 F L 97 18 104/69 92 L 08/05/17 01:27 98.1 F 81 18 117/67 93 L 08/05/17 00:40 89 18 134/69 93 L 08/04/17 22:29 97.9 F 88 18 118/74 94 L 08/04/17 21:45 99.1 F 79 17 130/67 97 08/04/17 20:28 99.0 F 91 18 134/61 94 L Intake and Output 08/04/17 08/05/17 08/05/17 22:59 06:59 14:59 Intake Total 0 Output Total 200 Balance -200 Intake: Oral 0 Output: Emesis 200 Other: Voiding Method Toilet Urinal # Voids 0 # Bowel Movements 0 # Emeses 3 Weight 98.883 kg 93.44 kg PHYSICAL EXAMINATION: GENERAL: The patient is alert and oriented x3, not in any acute distress. Well developed, well nourished. HEENT: Pupils are round and equally reacting to light. EOMI. No scleral icterus. No conjunctival pallor. Normocephalic, atraumatic. No pharyngeal erythema. No thyromegaly. CARDIOVASCULAR: S1 and S2 present. No murmurs, rubs, or gallops. PULMONARY: Chest is clear to auscultation, no wheezing or crackles. ABDOMEN: Soft, nontender, nondistended, normoactive bowel sounds. No palpable organomegaly. MUSCULOSKELETAL: No joint swelling or deformity. EXTREMITIES: No cyanosis, clubbing, or pedal edema. NEUROLOGICAL: Gross neurological examination did not reveal any focal deficits. SKIN: No rashes. Results CBC & Chem 7: 08/04/17 20:50 08/04/17 20:50 Labs: Abnormal Lab Results - Last 24 Hours (Table) 08/04/17 Range/Units 20:50 BUN 23 H (9-20) mg/dL Glucose 108 H (74-99) mg/dL Total Bilirubin 2.1 H (0.2-1.3) mg/dL Thrombosis Risk Factor Assmnt - Choose All That Apply Any of the Below Risk Factors Present?: Yes Each Factor Represents 1 point: Abnormal pulmonary function (COPD), Obesity ( BMI >25), Swollen legs (current) Other Risk Factors: Yes Each Risk Factor Represents 3 Points: Family history of DVT/PE Thrombosis Risk Factor Assessment Total Risk Factor Score: 6 Thrombosis Risk Factor Assessment Level: High Risk Assessment and Plan Plan: # sudden onset dysphagia: Unsure of the exact etiology we will obtain a barium swallow, probably related to retained food in the saphenous gastroneurology will be consulted. For possibility of upper GI endoscopy #2 coronary artery disease #3 question will history of atrial fibrillation patient is not on anticoagulation. #4 history of COPD: Not in acute exacerbation. #5 type 2 diabetes mellitus will continue with his present regimen along with sliding scale insulin if he can tolerate oral pills as of now he is not able to. #6 hypertension
[2017-08-05 12:21] LABS: Glucose,Whole Blood 102 mg/dL (75-99)
--- NOTE | 2017-08-05 14:46 | P.PN ---
Subjective Personal being dictated for Dr. Iniguez. 62-year-old male with history of multiple cirrhosis has a Lloyd catheter chronic contractures bedbound has a decubitus ulcer under the left buttock area stage 3-4 with surrounding redness. Patient urine is significantly abnormal, Lloyd catheter was changed in ER. Patient was sent in here because of altered mental status patient is normally alert oriented 3 now around alert oriented 1. Patient was started on levofloxacin apparently after reflux and patient appeared to have increasing confusion. Levofloxacin is known to increase her confusion. Patient did does have leukocytosis, no diarrhea patient unable to get much of the history from the patient patient does not appear to have any cough chest x-ray did not does not appear to show any pneumonia at this time. 08/04/2017 Patient is alert oriented 2 today improved compared to yesterday but he says he is still not at his baseline. Next Patient denied any chest pain, nausea, vomiting, abdominal pain. 08/05/2017. More alert today, and multiple times to. Evaluated by a speech therapy currently recommending nectar thick liquids. Maintained on Merrem ,T- max 100. Potassium 3.4. Denies nausea vomiting or abdominal pain. Denies chest pain, palpitations or increased shortness of breath. Objective - Vital Signs Vital signs: Vital Signs Temp 98.8 F 08/05/17 14:14 Pulse 89 08/05/17 14:14 Resp 18 08/05/17 14:14 BP 116/69 08/05/17 14:14 Pulse Ox 92 L 08/05/17 14:14 Intake & Output 08/04/17 08/05/17 08/05/17 18:59 06:59 18:59 Intake Total 0 Output Total 200 Balance -200 Weight 93.44 kg Intake: Oral 0 Output: Emesis 200 Other: Voiding Method Toilet Urinal # Voids 0 1 # Bowel Movements 0 # Emeses 3 - Exam GENERAL: The patient is alert and oriented x2, not in any acute distress. Well developed, well nourished. HEENT: Pupils are round and equally reacting to light. EOMI. No scleral icterus. No conjunctival pallor. Normocephalic, atraumatic. No pharyngeal erythema. No thyromegaly. CARDIOVASCULAR: S1 and S2 present. No murmurs, rubs, or gallops. PULMONARY: Chest is clear to auscultation, no wheezing or crackles. ABDOMEN: Soft, nontender, nondistended, normoactive bowel sounds. No palpable organomegaly. MUSCULOSKELETAL: No joint swelling or deformity. EXTREMITIES: No cyanosis, clubbing, or pedal edema. does have stage III to IV decompressive ulcer under the left buttock area on the left thigh posteriorly with significant redness in both buttock areas with some local is of temperature. NEUROLOGICAL: Gross neurological examination did not reveal any new focal deficits. Chronic contractures significant bilateral lower limb weakness bedbound SKIN: No rashes. - Labs CBC & Chem 7: 08/04/17 20:50 08/04/17 20:50 Labs: Abnormal Lab Results - Last 24 Hours (Table) 08/04/17 08/05/17 Range/Units 20:50 12:10 BUN 23 H (9-20) mg/dL Glucose 108 H (74-99) mg/dL POC Glucose (mg/dL) 102 H (75-99) mg/dL Total Bilirubin 2.1 H (0.2-1.3) mg/dL Assessment and Plan Plan: #1 sepsis: Most probably secondary to complicated urinary tract infection from Lloyd catheter, although I cannot rule out sepsis secondary to the decubitus ulcer. #2 decubitus ulcers stage IV as mentioned above #3 chronic contractures from multiple sclerosis #4 multiple sclerosis #5 mild acute renal failure secondary to sepsis #6 hypertension: Hold off on losartan and amlodipine due to low blood pressure from sepsis #7 hyperlipidemia #8 gastroesophageal reflux disease #9 seizure disorder Plan: Continue on current medication regime ,monitoring and symptomatic treatment. Maintain IV fluid hydration. Infectious disease consulted with recommendations pending. Close monitoring of renal function, electrolytes with repeat labs ordered for a.m. prognosis guarded given multiple complex medical issues. Further recommendations to follow. The impression and plan of care has been dictated as directed. : I performed a H&P examination of this patient and discussed the same with the dictator. I agree with the dictator's note. Any additional findings/opinions/ etc. will be noted.
--- NOTE | 2017-08-05 15:47 | FL ---
"EXAMINATION TYPE: FL UGI w esophagus DATE OF EXAM: 08/05/2017 COMPARISON: NONE HISTORY: Dysphagia for one day after eating steak yesterday with vomiting since. TECHNIQUE: A single contrast UGI study is performed. A total of 53 seconds of fluoroscopic time was utilized during procedure. 9 spot images were saved during procedure. FINDINGS: Boom Operator image of the abdomen shows overall nonobstructive bowel gas pattern. There is partia l visualization of sternal wires and mediastinal clips from CABG procedure. Cholecystectomy clips are noted. Patient only drank a few sips of contrast. There is complete occlusion with rounded lucency in the di stal esophagus above diaphragmatic hiatus felt to reflect retained foreign body or food product. No c ontrast was able to surpass distal to this. Patient has several episodes of vomiting. An x-ray done over 5 minutes after procedure was started shows no passage of contrast past foreign mandy dy in the distal esophagus roughly T11 vertebral body level. There is contrast filling the mid esopha giles past the abdulkadir approximately and mild dilatation. IMPRESSION: Retained foreign body or food product distal esophagus causing complete occlusion is note d. Critical results were communicated to patient's nurse Yuridia via telephone at time of dictation. A Document Only message has been documented for Hai Iniguez in the [employer] | Critical R esult system on 08/05/2017 3:44 PM, Message ID [id number]."
[2017-08-05 17:30] LABS: Glucose,Whole Blood 97 mg/dL (75-99)
[2017-08-05] MEDS: GABAPENTIN 400 MG CAP PO SCH ×2 (18:01→21:59)
[2017-08-05] MEDS ORDERED: CYCLOBENZAPRINE 10 MG TAB PO SCH (21:00)
[2017-08-05] MEDS: METOPROLOL TARTRATE 25 MG TAB PO SCH (21:59)
[2017-08-06] MEDS: SODIUM CHLORIDE 0.9% 1,000 ML IV SCH ×2 (05:37→16:52)
[2017-08-06 07:55] LABS: Glucose,Whole Blood 79 mg/dL (75-99)
[2017-08-06] MEDS ORDERED: CITALOPRAM HYDROBROMIDE 10 MG TAB PO SCH (09:00)
[2017-08-06] MEDS ORDERED: NON-FORMULARY DRUG (Omeprazole 20 MG) PO SCH (09:00)
[2017-08-06] MEDS ORDERED: metFORMIN 500 MG TAB PO SCH (09:00)
[2017-08-06] MEDS ORDERED: TAMSULOSIN 0.4 MG CAP.ER.24H PO SCH (09:00)
[2017-08-06] MEDS ORDERED: ATORVASTATIN 40 MG TAB PO SCH (09:00)
[2017-08-06] MEDS ORDERED: ASPIRIN 81 MG PO SCH (09:00)
[2017-08-06 09:15] LABS: Basophils % (A) 0 %; CH 30.4; CHCM 33.1; Eosinophils # (A) 0.1 k/uL (0-0.7); Eosinophils % (A) 2 %; HCT 41.4 % (39.0-53.0); HDW 2.77; HGB 14.4 gm/dL (13.0-17.5); Luc # (Auto) 0.14; Luc % (Auto) 2; Lymphocytes # (A) 1.3 k/uL (1.0-4.8); Lymphocytes % (A) 17 %; MCHC 34.7 g/dL (31.0-37.0); MCV 92.2 fL (80.0-100.0); Mean Platelet Volume 7.3; Monocytes # (A) 0.6 k/uL (0-1.0); Monocytes % (A) 7 %; Neutrophils # (A) 5.6 k/uL (1.3-7.7); Neutrophils % (A) 72 %; RBC 4.49 m/uL (4.30-5.90); RDW 12.9 % (11.5-15.5); WBC 7.8 k/uL (3.8-10.6)
[2017-08-06 09:26] LABS: Anion Gap 11 mmol/L; Blood Urea Nitrogen 16 mg/dL (9-20); Calcium 9.2 mg/dL (8.4-10.2); Carbon Dioxide 21 mmol/L (22-30); Chloride 108 mmol/L (98-107); Glucose 76 mg/dL (74-99); Non-African American GFR(MDRD) >60 (>60 ml/min/1.73 sqM); Sodium 140 mmol/L (137-145)
[2017-08-06 09:43] LABS: Potassium 4.3 mmol/L (3.5-5.1)
--- NOTE | 2017-08-06 09:46 | P.CONS ---
History of Present Illness - Reason for Consult Consult date: 08/06/17 foreign body Requesting physician: Mina Lara - History of Present Illness 76-year-old gentleman with a history of A. fib maintained on baby aspirin, hypertension, prostate carcinoma, CAD/CABG, GERD presents with acute dysphagia/ hiccups. Patient was eating dinner on Saturday night consistent of prime rib greenlandic fries and salad. He ate the salad without difficulty however after 3 bites of his prime rib he started to have increased hiccuping followed by phlegm emesis. Persistent sensation in the mid to upper esophageal region pressure-like over the last 2 days. Intermittent drooling. No chest pain or shortness of breath. No hematemesis hematochezia melena. EGD many years ago. Upper GI retained foreign body food product distal esophagus causing complete occlusion. Review of Systems Constitutional: Denies fever, chills, sweats, weight gain, or loss. HEENT: Negative for migraines, blurred vision or loss, earaches, drainage, tinnitus, oral mucosal lesions, dysphagia, or odynophagia. Cardiac: Atrial fibrillation. CAD. Hypertension. Negative for chest pain, arrhythmias, or palpitation. Respiratory: COPD. Negative for shortness of breath, hemoptysis, cough, or sputum production. Gastrointestinal: See HPI for pertinent findings. Genitourinary: Prostate carcinoma. Negative for hematuria, urgency, frequency, polyuria, dysuria, or penile discharge. Musculoskeletal: Negative for muscle aches, swelling, arthritis, and arthralgias. Neurologic: Negative for stroke or TIA. Endocrine: Negative for thyroid problems. Skin: Negative for rash or itching. Psychiatric: Anxiety. 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 Hip sx x2, Right hand surgery, skin ca head Past Anesthesia/Blood Transfusion Reactions: No Reported Reaction, Previous Problems w/ Anesthesia Additional Past Anesthesia/Blood Transfusion Reaction / Comm: During hip revision surgery patient had breathing problems, respiratory failure; was in ICU and rehab to improve breathing Past Psychological History: Anxiety Smoking Status: Former smoker Past Alcohol Use History: Occasional Additional Past Alcohol Use History / Comment(s): Patient was heavy drinker 40 years ago Past Drug Use History: None Reported - Past Family History Mother Family Medical History: Congestive Heart Failure (CHF), Myocardial Infarction ( [place]) Additional Family Medical History / Comment(s): 2 brothers also have cardiac history Medications and Allergies Home Medications Medication Instructions Recorded Confirmed Type Albuterol Sulfate [Proair Hfa] 1 - 2 puff INHALATION RT-Q6H PRN 05/22/17 History Aspirin 81 mg PO DAILY 05/22/17 08/05/17 History Atorvastatin [Lipitor] 40 mg PO DAILY 05/22/17 08/05/17 History Biotin 10,000 mcg PO DAILY 05/22/17 08/05/17 History Cholecalciferol [Vitamin D3] 1,000 unit PO DAILY 05/22/17 08/05/17 History Citalopram Hydrobromide [CeleXA] 30 mg PO DAILY 05/22/17 08/05/17 History Colchicine 0.6 mg PO BID PRN 05/22/17 08/05/17 History Cyclobenzaprine [Flexeril] 10 mg PO HS 05/22/17 08/05/17 History Folic Acid 1 mg PO DAILY 05/22/17 08/05/17 History Furosemide [Lasix] 20 mg PO DAILY 05/22/17 08/05/17 History Gabapentin 800 mg PO TID 05/22/17 08/05/17 History HYDROcodone/APAP 5-325MG [[place] 1 tab PO BID PRN 05/22/17 08/05/17 History 5-325] LORazepam [Ativan] 1 mg PO DAILY PRN 05/22/17 08/05/17 History Meclizine [Antivert] 25 mg PO DAILY PRN 05/22/17 08/05/17 History Metoprolol Tartrate [Lopressor] 25 mg PO BID 05/22/17 08/05/17 History Modafinil [Provigil] 100 mg PO DAILY 05/22/17 08/05/17 History Omeprazole [PriLOSEC] 20 mg PO DAILY 05/22/17 08/05/17 History Tamsulosin HCl [Flomax] 0.4 mg PO TUSA 05/22/17 08/05/17 History Vitamin B Complex 1 cap PO DAILY 05/22/17 08/05/17 History Zinc 50 mg PO DAILY 05/22/17 08/05/17 History metFORMIN HCL [Glucophage] 500 mg PO DAILY 05/22/17 08/05/17 History Thiamine [Vitamin B-1] 100 mg PO DAILY@1200 #30 tab 05/26/17 08/05/17 Rx Magnesium Oxide [Mag-Ox] 400 mg PO DAILY 08/04/17 08/05/17 History Potassium Chloride [K-Tab ER] 10 meq PO DAILY 08/04/17 08/05/17 History Allergies Allergy/AdvReac Type Severity Reaction Status Date / Time No Known Allergies Allergy Verified 08/04/17 21:34 Physical Exam Vitals: Vital Signs Temp Pulse Pulse Resp BP Pulse Ox 08/06/17 07:00 97.5 F L 108 H 19 138/69 90 L 08/05/17 23:45 98.1 F 92 20 127/74 92 L 08/05/17 14:14 98.8 F 89 18 116/69 92 L Intake and Output 08/05/17 08/06/17 08/06/17 22:59 06:59 14:59 Intake Total 0 0 Balance 0 0 Intake: Oral 0 0 Other: # Voids 3 1 1 # Bowel Movements 0 1 General appearance: The patient is alert, oriented, in no acute distress. HET: Head is normocephalic and atraumatic. Pupils are equal and reactive. Oropharynx is clear without lesions. Neck: Supple without lymphadenopathy. Trachea midline. Heart: S1 S2. Lungs: No crackles or wheezes are heard. Abdomen: Soft, nontender, nondistended with bowel sounds. No peritoneal signs. No palpable organomegaly or masses. Extremities: Normal skin color and turgor. No cyanosis, rash, ulceration, clubbing, or edema. Radial and pedal pulses are 2/4 bilaterally. Neurological: No focal deficits. Strength and sensation are grossly intact. Results CBC & Chem 7: 08/06/17 08:30 08/04/17 20:50 Labs: Abnormal Lab Results - Last 24 Hours (Table) 08/05/17 Range/Units 12:10 POC Glucose (mg/dL) 102 H (75-99) mg/dL Comments: Barium esophagram results reviewed by Dr. Alexis Assessment and Plan (1) Dysphagia Status: Acute (2) Foreign body Narrative/Plan: Suspect food foreign body Status: Acute Plan: 1. EGD evaluation. 2. Protonix IV 40 mg daily. 3. Nothing by mouth. The sql database developer has discussed the risks, benefits and alternative therapies for the above-mentioned procedure and for both sedation/analgesia as well as necessary blood product administration, if indicated, as they pertain to this patient. The patient has indicated understanding and acceptance of the risks and procedures discussed. Thank you for this kind referral and the opportunity to participate in the care of your patient. This consultation was discussed with Dr. Alexis. The impression and plan of care have been directed as dictated.
[2017-08-06] MEDS: GABAPENTIN 400 MG CAP PO SCH ×2 (11:33→15:38)
[2017-08-06] MEDS: METOPROLOL TARTRATE 25 MG TAB PO SCH (11:33)
[2017-08-06] MEDS: MODAFINIL 100 MG TAB PO SCH ×2 (11:33→15:37)
[2017-08-06] MEDS: PANTOPRAZOLE 40 MG/10 ML VIAL IV SCH (11:36)
[2017-08-06 12:10] LABS: Glucose,Whole Blood 88 mg/dL (75-99)
[2017-08-06] MEDS ORDERED: PROPOFOL 10 MG/ML 20 ML VIAL IV ONE (12:58)
[2017-08-06] MEDS ORDERED: LACTATED RINGERS 1,000 ML IV SCH (13:00)
[2017-08-06] MEDS ORDERED: LACTATED RINGERS 1,000 ML IV ONE (13:09)
--- NOTE | 2017-08-06 13:37 | P.PCN ---
Date of Procedure: 08/06/17 Procedure(s) Performed: Procedure: Esophagogastroduodenoscopy and biopsy. Preoperative diagnosis: History of obstructive dysphagia. Postoperative diagnosis: 1. Hiatal hernia with spontaneous passage of the impacted pieces of meat. 2. Biopsies obtained in the distal esophagus to assess for esophagitis. Preparation sedation: Was provided by anesthesia. Brief clinical history: The patient is a 76-year-old male with a history of A. fib maintained on baby aspirin, hypertension, prostate carcinoma, CAD/CABG, GERD presented with acute dysphagia/hiccups. Patient was eating dinner on Saturday night consistent of prime rib syrian fries and salad. He ate the salad without difficulty however after 3 bites of his prime rib he started to have increased hiccuping followed by phlegm emesis. Persistent sensation in the mid to upper esophageal region pressure-like over the last 2 days. Intermittent drooling. No chest pain or shortness of breath. No hematemesis hematochezia melena. Prior EGD many years ago. Upper GI performed yesterday showed retained foreign body/food product distal esophagus causing complete occlusion. The details are summarized in the history and physical and dictated consultation. This evaluation is to alleviate the obstruction and guide therapy. Procedure: With the patient on his left lateral decubitus position and after informed consent and adequate sedation, I passed the Olympus-GIF 160 video upper endoscope through the cricopharyngeus down the esophagus. There was minimal secretions and remnant Randy the esophagus which was washed and suctioned. The impacted pieces of meat must have passed spontaneously prior to the exam. GE junction was around 42 cm from the incisors and there was a sliding hiatal hernia. There was some edema at that level but no obvious erosions or ulcers. No obvious strictures or tumors. The barium which was still sticking on the surface was washed. The endoscope was then passed to the rest of the stomach which was insufflated with air and inspected in detail including the retroflex view in the cardia. Finally, the endoscope was passed through the pylorus into the duodenum. No obvious abnormalities were seen in the stomach or duodenum. At this point, I obtained biopsies in the distal esophagus to assess for esophagitis and the endoscope was withdrawn. The patient tolerated the procedure well. Plan: The patient there was reassured. I discussed with him and his . I suggested that I see him in follow-up in the office in the coming few weeks and I would consider repeat endoscopy for possible dilation depending on his course. I will keep you updated on his progress.
--- NOTE | 2017-08-06 13:58 | P.DS ---
Providers Date of admission: 08/05/17 00:24 Expected date of discharge: 08/06/17 Attending physician: Mina Iniguez Consults: 08/05/17 00:00 Consult Physician Stat Consulting Provider: Rochelle Wilson Consult Reason/Comments: Dysphagia Do you want consulting provider notified?: Yes Primary care physician: [facility] Course: Final Diagnoses: # sudden onset dysphagia, upper GI reporting retained foreign food body distal esophagus, status post Esophagogastroduodenoscopy with biopsy,spontaneous passage. #2 coronary artery disease #3 question will history of atrial fibrillation patient is not on anticoagulation. #4 history of COPD: Not in acute exacerbation. #5 type 2 diabetes mellitus will continue with his present regimen along with sliding scale insulin if he can tolerate oral pills as of now he is not able to. #6 hypertension Hospital course: This is a 76-year-old man came in with compensative dysphagia started yesterday after the eating a piece of steak. Patient never had an dysphagia. Presented with acute dysphagia to fluids as well as the solids. Upper GI reported retained foreign body or food product distal esophagus causing complete obstruction. Evaluated by GI, underwent Esophagogastroduodenoscopy with biopsy reporting hiatal hernia with spontaneous passage of impacted pieces of meat, biopsies obtained in the distal esophagus to assess for esophagitis. Patient will be discharged home in a stable condition pending clearance around DC recommendations from GI. The impression and plan of care has been dictated as directed as a scribe. : I performed a H&P examination of this patient and discussed the same with the dictator. I agree with the dictator's note. Any additional findings/opinions/ etc. will be noted. Patient Condition at Discharge: Stable Plan - Discharge Summary New Discharge Prescriptions: New Omeprazole [PriLOSEC] 40 mg PO DAILY #30 capsule.dr Holder Zinc 50 mg PO DAILY Vitamin B Complex 1 cap PO DAILY Cholecalciferol [Vitamin D3] 1,000 unit PO DAILY Tamsulosin HCl [Flomax] 0.4 mg PO TUSA Modafinil [Provigil] 100 mg PO DAILY metFORMIN HCL [Glucophage] 500 mg PO DAILY Metoprolol Tartrate [Lopressor] 25 mg PO BID HYDROcodone/APAP 5-325MG [[place] 5-325] 1 tab PO BID PRN PRN Reason: Pain Furosemide [Lasix] 20 mg PO DAILY Gabapentin 800 mg PO TID Folic Acid 1 mg PO DAILY Cyclobenzaprine [Flexeril] 10 mg PO HS Colchicine 0.6 mg PO BID PRN PRN Reason: GOUT Citalopram Hydrobromide [CeleXA] 30 mg PO DAILY Meclizine [Antivert] 25 mg PO DAILY PRN PRN Reason: Vertigo LORazepam [Ativan] 1 mg PO DAILY PRN PRN Reason: Anxiety Biotin 10,000 mcg PO DAILY Atorvastatin [Lipitor] 40 mg PO DAILY Aspirin 81 mg PO DAILY Albuterol Sulfate [Proair Hfa] 1 - 2 puff INHALATION RT-Q6H PRN PRN Reason: Shortness Of Breath Thiamine [Vitamin B-1] 100 mg PO DAILY@1200 #30 tab Magnesium Oxide [Mag-Ox] 400 mg PO DAILY Potassium Chloride [K-Tab ER] 10 meq PO DAILY Discharge Medication List Albuterol Sulfate [Proair Hfa] 1 - 2 puff INHALATION RT-Q6H PRN 05/22/17 [ History] Aspirin 81 mg PO DAILY 05/22/17 [History] Atorvastatin [Lipitor] 40 mg PO DAILY 05/22/17 [History] Biotin 10,000 mcg PO DAILY 05/22/17 [History] Cholecalciferol [Vitamin D3] 1,000 unit PO DAILY 05/22/17 [History] Citalopram Hydrobromide [CeleXA] 30 mg PO DAILY 05/22/17 [History] Colchicine 0.6 mg PO BID PRN 05/22/17 [History] Cyclobenzaprine [Flexeril] 10 mg PO HS 05/22/17 [History] Folic Acid 1 mg PO DAILY 05/22/17 [History] Furosemide [Lasix] 20 mg PO DAILY 05/22/17 [History] Gabapentin 800 mg PO TID 05/22/17 [History] HYDROcodone/APAP 5-325MG [[place] 5-325] 1 tab PO BID PRN 05/22/17 [History] LORazepam [Ativan] 1 mg PO DAILY PRN 05/22/17 [History] Meclizine [Antivert] 25 mg PO DAILY PRN 05/22/17 [History] Metoprolol Tartrate [Lopressor] 25 mg PO BID 05/22/17 [History] Modafinil [Provigil] 100 mg PO DAILY 05/22/17 [History] Tamsulosin HCl [Flomax] 0.4 mg PO TUSA 05/22/17 [History] Vitamin B Complex 1 cap PO DAILY 05/22/17 [History] Zinc 50 mg PO DAILY 05/22/17 [History] metFORMIN HCL [Glucophage] 500 mg PO DAILY 05/22/17 [History] Thiamine [Vitamin B-1] 100 mg PO DAILY@1200 #30 tab 05/26/17 [Rx] Magnesium Oxide [Mag-Ox] 400 mg PO DAILY 08/04/17 [History] Potassium Chloride [K-Tab ER] 10 meq PO DAILY 08/04/17 [History] Omeprazole [PriLOSEC] 40 mg PO DAILY #30 capsule. 08/06/17 [Rx] Follow up Appointment(s)/Referral(s): Ming Alexis MD [STAFF PHYSICIAN] - 2 Weeks (bx results ) Pete Rm DO [Primary Care Provider] - 3 Days Activity/Diet/Wound Care/Special Instructions: Pending final [place] recommendations and clearance from [facility] dc rec. & clearance from GI
[2017-08-06 14:12] LABS: Hemoglobin A1C 5.8 % (4.2-6.1)
[2017-08-06] MEDS ORDERED: FUROSEMIDE 20 MG TAB PO SCH (14:15)
[2017-08-06 15:23] VITALS: BP 142/74; PULSE 100; RESP 20; TEMP 96.9
[2017-08-06 17:04] LABS: Glucose,Whole Blood 94 mg/dL (75-99)
== END 2017-08-06 18:47 | disposition home or self-care (01) ==
LOC: EC 20:26 → 4MS4W 08-05 00:24
PROVIDERS: ADMIT Hospitalist; ATTEND Hospitalist
DX: T18.128A Food in esophagus causing other injury, initial encounter (principal); R13.19 Other dysphagia; K21.9 Gastro-esophageal reflux disease without esophagitis; J44.9 Chronic obstructive pulmonary disease, unspecified; I48.91 Unspecified atrial fibrillation; I25.10 Atherosclerotic heart disease of native coronary artery without angina pectoris; I10 Essential (primary) hypertension; E11.9 Type 2 diabetes mellitus without complications; X58.XXXA Exposure to other specified factors, initial encounter; H91.92 Unspecified hearing loss, left ear; F41.9 Anxiety disorder, unspecified; K44.9 Diaphragmatic hernia without obstruction or gangrene; K20.9 Esophagitis, unspecified; Z85.828 Personal history of other malignant neoplasm of skin; Z79.899 Other long term (current) drug therapy; Z90.49 Acquired absence of other specified parts of digestive tract; Z79.82 Long term (current) use of aspirin; Z79.1 Long term (current) use of non-steroidal anti-inflammatories (NSAID); Z79.84 Long term (current) use of oral hypoglycemic drugs; Z79.52 Long term (current) use of systemic steroids; Z85.46 Personal history of malignant neoplasm of prostate; Z95.1 Presence of aortocoronary bypass graft; Z87.891 Personal history of nicotine dependence; Z82.49 Family history of ischemic heart disease and other diseases of the circulatory system
CPT/HCPCS: 96376; 96361 ×4; 96375 ×2; 96374; 99284; 36415; 93005; 88305; 80053; 80048; 82150; 83036; 83690; 83735; 84484; 85025 ×2; 88312; 70360; 71020; 74000; 74240; 43239; G0378 ×2; J2765; J2405 ×2; J2704; C9113 ×2

== ENCOUNTER → 2017-12-23 | Outpatient (CLI) | payer MEDICARE ==
--- NOTE | 2017-12-23 19:52 | MR ---
EXAMINATION TYPE: MR angio head wo con DATE OF EXAM: 12/23/2017 COMPARISON: NONE HISTORY: Cerebral aneurysm, nonruptured TECHNIQUE: Utilizing 3-D [id number] intracranial MRA of the [place] was performed. FINDINGS: The vertebrobasilar and carotid systems are patent. There is fusiform dilation of the basilar tip me asuring 8.7 mm. Fusiform aneurysm in the differential diagnosis. No saccular aneurysm seen. IMPRESSION: 1. There is fusiform dilation of the basilar tip measuring 8.7 mm.
== END | disposition home or self-care (01) ==
LOC: RADMRIMAIN 17:25
PROVIDERS: ATTEND Psychiatry & Neurology Neurology
DX: I67.1 Cerebral aneurysm, nonruptured (principal)
CPT/HCPCS: 70544

== ENCOUNTER → 2018-07-17 | Outpatient (CLI) | payer MEDICARE ==
--- NOTE | 2018-07-17 23:26 | CTL ---
EXAMINATION TYPE: CT Low Dose Lung DATE OF EXAM ORDERED: 07/17/2018 HISTORY: 77-year-old male personal hx of tobacco use. Lung cancer screening CT DLP: [address] CTDI: 2.26 mGy Automated exposure control for dose reduction was used. SCREENING VISIT: Baseline COMPARISON: None TECHNIQUE: Low dose computed tomography scan was performed through the chest at 1 mm thick sections a nd reconstructed images in the coronal coronal/sagittal plane at 1 mm thick sections. Additional mitali nal MIP reconstruction performed. CT DIAGNOSTIC QUALITY: Satisfactory FINDINGS: Median sternotomy wires are present with post-CABG changes. Heart is normal size without pericardial effusion. Proximal arch is aneurysmal at 4.3 cm. Upper descending thoracic aorta is mildly aneurysmal at 3.3 cm . Mild atherosclerotic arch calcifications with conventional arch vessel branching anatomy. Large caliber to the main right and left pulmonary arteries are 3.1 a 2.8 cm, respectively, which can be seen in the setting of pulmonary hypertension. No thoracic lymphadenopathy. Biapical pleural parenchymal scarring. Mild diffuse septal lines and diffuse bronchial wall thickenin g. Mild scattered emphysematous changes also noted. No consolidation or pleural effusion. No suspicio us pulmonary nodule or mass. Tiny hiatal hernia. Visualized upper abdomen shows cholecystectomy clips. Bones: No osseous destructive process. IMPRESSION: 1. LungRADS 1 - negative; no suspicious pulmonary nodules. 2. COPD with mild emphysema. Bronchial wall thickening could reflect a prominent component of chronic bronchitis or superimposed acute bronchitis. Clinically correlate. 3. Pulmonary arterial hypertension. 4. 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 RECOMMENDATION: 1. Continue annual low-dose lung cancer screening CT. 2. Smoking cessation. FOLLOW UP CT CHEST RECOMMENDATION: [address] LUNG RAD: Lung-Rad 1 Negative
== END | disposition home or self-care (01) ==
LOC: RADCTMAIN 15:44
PROVIDERS: ATTEND Family Medicine
DX: Z12.2 Encounter for screening for malignant neoplasm of respiratory organs (principal); J43.9 Emphysema, unspecified; I27.21 Secondary pulmonary arterial hypertension; I71.2 Thoracic aortic aneurysm, without rupture; J98.09 Other diseases of bronchus, not elsewhere classified; Z87.891 Personal history of nicotine dependence

== ENCOUNTER → 2018-08-27 | Outpatient (CLI) | payer MEDICARE ==
--- NOTE | 2018-08-27 11:22 | XR ---
EXAMINATION TYPE: XR chest 2V DATE OF EXAM: 08/27/2018 COMPARISON: 08/04/2017 TECHNIQUE: PA and lateral views submitted. HISTORY: Vomiting, COPD, angina FINDINGS: The lungs are clear and there is no pneumothorax, pleural effusion, or focal pneumonia. Postsurgica l changes are noted there is mild flank. Partial eventration of the right diaphragm. No overt failure . Hypertrophic and degenerative change of the spine. Subsegmental linear changes left lung base. IMPRESSION: 1. Correlate for COPD. Left basilar chronic appearing atelectasis stable from prior exam..
== END ==
LOC: RADXRYALE 10:55
PROVIDERS: ATTEND Physician Assistant Medical
DX: J98.11 Atelectasis (principal)
CPT/HCPCS: 71046

== ENCOUNTER → 2019-02-25 | Outpatient (CLI) | payer MEDICARE ==
--- NOTE | 2019-02-25 11:20 | MR ---
EXAMINATION TYPE: MR lumbar spine wo/w con DATE OF EXAM: 02/25/2019 10:29 AM COMPARISON: 01/29/2016 from outside institution HISTORY: Low back pain / Right leg weakness / Falls Multiplanar, MultiSpin echo imaging of the lumbar spine was performed. Pre and post contrast enhanced images are obtained. 9.5 mL Gadavist given. L1-L2: Normal disc appearance without desiccation. No herniation, protrusion or disc bulging. No ca nal stenosis is present. Foramina are patent bilaterally. L2-L3: Normal disc appearance without desiccation. No herniation, protrusion or disc bulging. No ca nal stenosis is present. Foramina are patent bilaterally. L3-L4: There is severe disc desiccation noted. Circumferential disc bulge greatest posteriorly with m ild effacement ventral thecal sac. No evidence for central stenosis or disc herniation. Moderate righ t-sided foraminal encroachment is identified. Degenerative endplate marrow change. L4-L5: Severe disc desiccation noted. Moderate circumferential disc bulge greatest posteriorly with a mild effacement ventral thecal sac. Bilateral lateral recess stenosis and borderline central stenosi s appreciated. Bilateral foraminal encroachment right greater than left. L5-S1: Moderate disc desiccation. Circumferential disc bulge greatest posteriorly. Effacement ventral thecal sac with bilateral lateral recess stenosis and bilateral foraminal encroachment right greater than left. Degenerative endplate marrow change. No central stenosis appreciated. Lumbar segments are intact. No paraspinal masses are identified. Conus medullaris has a normal appe arance. Scattered ventral spondylosis. No pathologic enhancement. IMPRESSION: 1. Multilevel degenerative disc disease without lateral recess stenosis and foraminal encroachment as outlined above.
== END ==
LOC: RADMRIMAIN 09:43
PROVIDERS: ATTEND Psychiatry & Neurology Neurology
DX: M51.36 Other intervertebral disc degeneration, lumbar region (principal)
CPT/HCPCS: 72158; A9585

== ENCOUNTER → 2019-07-17 | Outpatient (CLI) | payer MEDICARE ==
--- NOTE | 2019-07-19 07:20 | XR ---
EXAMINATION TYPE: XR wrist complete LT DATE OF EXAM: 07/17/2019 CLINICAL HISTORY: Left wrist pain after fall TECHNIQUE: Frontal, lateral and oblique images of the left wrist are obtained. COMPARISON: None FINDINGS: There is advanced arthropathy of the left wrist including bony productive change throughout the carpal carpal joint, particularly of the first metacarpal joint as well as osseous cyst formatio n and joint space narrowing. There is calcification of the triangular fibrocartilage and narrowing of the radiocarpal joint. No erosion of the ulnar styloid. Osseous fragment is seen adjacent to the dis [place] scaphoid pole that could represent a chip fracture however given the bony productive change this could represent a small osteophyte. Correlation with point tenderness is recommended. IMPRESSION: Advanced arthropathy of the left wrist. Bony productive changes seen throughout. Addition ally there is a punctate osseous fragment adjacent to the distal pole that could represent a small ch ip fracture. However given the extensive bony productive changes could simply represent an osteophyte . Correlation with physical exam and point tenderness is recommended.
== END | disposition home or self-care (01) ==
LOC: RADXRYALE 16:05
PROVIDERS: ATTEND Physician Assistant Medical
DX: M19.032 Primary osteoarthritis, left wrist (principal)

== ENCOUNTER → 2021-09-21 | Outpatient (CLI) | payer MEDICARE ==
--- NOTE | 2021-09-21 14:59 | XR ---
EXAMINATION TYPE: XR chest 2V DATE OF EXAM: 09/21/2021 COMPARISON: NONE TECHNIQUE: PA and lateral views submitted. HISTORY: Pre-MRI FINDINGS: The lungs are clear and there is no pneumothorax, pleural effusion, or focal pneumonia. Sternotomy wires and clips are noted. Pleura prosthetic right shoulder. Hyperinflation suggests COPD. Hypertroph ic and degenerative change of the spine. Biapical pleural thickening. Heart size normal. No overt pauline lure. IMPRESSION: 1. No acute process.
== END | disposition home or self-care (01) ==
LOC: RADXRYALE 14:33
PROVIDERS: ATTEND Orthopaedic Surgery Orthopaedic Surgery of the Spine
DX: Z01.818 Encounter for other preprocedural examination (principal)
CPT/HCPCS: 71046

== ENCOUNTER → 2021-10-30 | Outpatient (CLI) | payer MEDICARE ==
[2021-10-30 14:01] VITALS: BP 124/71; PULSE 66; RESP 18; TEMP 97.9
--- NOTE | 2021-10-30 14:26 | P.PAINCN ---
History of Present Illness - Reason for Consult Consult date: 10/30/21 lumbar back pain - Chief Complaint Lumbar back pain - History of Present Illness Mr. West is a 81-year-old pleasant male came to the [facility] pain clinic for initial evaluation for his lumbar back pain. Patient has ongoing pain for many years. Lately his lumbar back pain is getting worse. Patient pain is getting worse while walking, improving his pain while sitting, and lying down. While walking patient wants to lean forward to het relief of his back pain. Patient describes pain is aching, throbbing, constant type of pain. Pain is not radiating to his lower extremities.. Patient rated pain levels are 6 -9out of 10 in severity. With the help of medications pain levels are 6 out of 10 in severity. Activities making pain worse. Medications, resting, physical therapy, sitting helping in relieving patient's pain. Patient pain some days better than others. Overall activities decreased secondary to pain. Because of the pain sometimes patient is feeling lack of sleep, interest, and energy. Denied any side effects with the medications. Denied any bowel or bladder problems at this time. Patient is using cane as needed for walking support. Patient denies any suicidal or homicidal ideations intent or plan. Patient denies any auditory or visual hallucinations. Patient denied any red flag symptoms related to pain. Review of Systems All systems: negative Constitutional: Denies chills, Denies fever Eyes: denies blurred vision, denies pain Ears, nose, mouth and throat: Denies headache, Denies sore throat Cardiovascular: Denies chest pain, Denies shortness of breath Respiratory: Denies cough Gastrointestinal: Denies abdominal pain, Denies diarrhea, Denies nausea, Denies vomiting Musculoskeletal: Reports low back pain, Reports morning stiffness, Reports muscle weakness, Reports myalgias Integumentary: Denies pruritus, Denies rash Neurological: Denies numbness, Denies weakness Psychiatric: Denies anxiety, Denies depression Endocrine: Denies fatigue, Denies weight change Past Medical History Past Medical History: Atrial Fibrillation, Coronary Artery Disease (CAD), Cancer, Chest Pain / Angina, COPD, Dementia, Diabetes Mellitus, GERD/Reflux, Hypertension, Musculoskeletal Disorder, Osteoarthritis (OA), Skin Disorder Additional Past Medical History / Comment(s): Menieres, hx Prostate Cancer with radiation([id number]), 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 Past Anesthesia/Blood Transfusion Reactions: Previous Problems w/ Anesthesia Additional Past Anesthesia/Blood Transfusion Reaction / Comm: During hip revision surgery patient had breathing problems, respiratory failure, was in ICU and rehab to improve breathing. Past Psychological History: Anxiety Smoking Status: Former smoker Past Alcohol Use History: Heavy Additional Past Alcohol Use History / Comment(s): Quit smoking in 2012, smoked for 40 yrs. Patient used to be a heavy drinker but quit drinking 44 years ago. Past Drug Use History: None Reported - Past Family History Mother Family Medical History: Congestive Heart Failure (CHF), Myocardial Infarction ([place]) Additional Family Medical History / Comment(s): 2 brothers also have cardiac history Sister(s) Family Medical History: Cancer Brother(s) Family Medical History: Cancer Medications and Allergies Home Medications Medication Instructions Recorded Confirmed Type Albuterol Sulfate [Proair Hfa] 1 - 2 puff INHALATION RT-Q6H PRN 05/22/17 10/30/21 History Aspirin 81 mg PO DAILY 05/22/17 10/30/21 History Atorvastatin [Lipitor] 40 mg PO DAILY 05/22/17 10/30/21 History Cholecalciferol [Vitamin D3 (25 1,000 unit PO DAILY 05/22/17 10/30/21 History Mcg = 1000 Iu)] Citalopram Hydrobromide [CeleXA] 1.5 tab PO DAILY 05/22/17 10/30/21 History Colchicine 1 - 2 tab PO BID PRN 05/22/17 10/30/21 History Folic Acid 1 mg PO DAILY 05/22/17 10/30/21 History Gabapentin 800 mg PO BID 05/22/17 10/30/21 History LORazepam [Ativan] 1 mg PO DAILY PRN 05/22/17 10/30/21 History Meclizine [Antivert] 25 mg PO DAILY PRN 05/22/17 10/30/21 History Metoprolol Tartrate [Lopressor] 25 mg PO BID 05/22/17 10/30/21 History Modafinil [Provigil] 100 mg PO DAILY 05/22/17 10/30/21 History Tamsulosin HCl [Flomax] 0.4 mg PO TUSA 05/22/17 10/30/21 History Vitamin B Complex 1 cap PO DAILY 05/22/17 10/30/21 History Zinc 50 mg PO DAILY 05/22/17 10/30/21 History metFORMIN HCL [Glucophage] 500 mg PO DAILY 05/22/17 10/30/21 History Thiamine [Vitamin B-1] 100 mg PO DAILY@1200 #30 tab 05/26/17 10/30/21 Rx Magnesium Oxide [Mag-Ox] 400 mg PO DAILY 08/04/17 10/30/21 History Omeprazole [PriLOSEC] 40 mg PO DAILY #30 capsule.dr 08/06/17 10/30/21 Rx Ascorbic Acid [Vitamin C] 500 mg PO DAILY 10/24/21 10/30/21 History Memantine [Namenda] 10 mg PO BID 10/24/21 10/30/21 History Allergies Allergy/AdvReac Type Severity Reaction Status Date / Time No Known Allergies Allergy Verified 10/30/21 13:48 Physical Exam Vitals: Vital Signs Temp Pulse Resp BP Pulse Ox 10/30/21 13:49 97.9 F 66 18 124/71 93 L General: Well-developed, well-nourished, no acute distress HEENT: Normocephalic, and atraumatic Neck: Supple, no neck swelling Psychiatric: Appropriate mood, and affect SAND CASTER: No focal neurological deficits Musculoskeletal: Upper extremity: Normal strength, and range of motion. Sensation grossly intact Lower extremity: Normal strength, and decreased range of motion secondary to pain Lumbar spine: Paravertebral tenderness: positive Lumbar facet load test : positive SLR test : positive Sacroiliac joint tenderness: Negative Results Comments: MRI of the lumbar spine done on 09/27/2021 showed L4-L5 level moderate to severe spinal canal stenosis L3-L4 level, right lateral recess stenosis, and mild spinal canal stenosis there is multilevel foraminal stenosis most notably severe right foraminal stenosis at L3-L4, moderate to severe bilateral foraminal stenosis at L4-L5, and moderate left foraminal stenosis at L5-S1. Assessment and Plan Assessment: Lumbar spinal canal stenosis Lumbar spondylosis without myelopathy Myofascial pain syndrome Plan: #1 Diagnoses, prognosis, and multiple treatment options including but not limited to physical therapy, interventional therapy, adjunct medication therapy, narcotic medication, and surgical options were discussed with the patient. And all questions were answered to the patient's satisfaction. #2 treatment plan agreement : Patient was thoroughly discussed regarding the treatment options, alternatives, and importance of exercises as tolerated. Patient clearly understood. #3 Patient was counseled on importance of regular exercise. Including magdaleno chi, aerobic exercises as tolerated. Which helps for chronic pain, and overall well- being. Patient also counseled regarding importance of weight control rolling chronic pain, and overall other health issues. By altering diet habits, minimizing sugar intake, and processed foods helps in minimizing Inflammation. Also discussed with the patient regarding intermittent fasting. #4 investigations: MAPS- reviewed , urine drug test- not done #5 diagnostic tests: None #6 consultation : None # 7 interventional procedures: Lumbar L4-L5 epidural steroid injection . Procedure, complications, alternatives discussed with the patient. #8 medications No medications from the pain clinic # 9 TENS unit's, and percussion massage device #10 disposition: scheduled to follow up with pain clinic in [ ] weeks duration. Time with Patient: Less than 30 PQRS Measure Charge Sheet Measure #130: Documentation of Current Meds in Medical Chart: Patient's medications documented in chart Measure #226: Tobacco Use: Screen & Cessation Intervention: Pt not a tobacco user Measure #111: Pneumonia Vaccination: Pneumococcal vaccine administered or previously received Measure #47: Advance Care Plan: Advance care planning discussed & documented, plan or surrogate given Measure #412: Opioid Treatment Agreement: No documentation of signed opioid treatment agreement Measure #408: Opioid Therapy Follow-up Evaluation: Patient had NO f/u eval minimum every 3 months during opioid therapy Measure #317: Preventitive Care & Scrn High Bld Press & F/U: Pre-hypertensive or hypertensive BP documented, pt will f/u with PCP Measure #128: Body Mass Index (BMI) Screening & Follow-up: BMI documented ABOVE normal parameters - f/u documented Measure #131: Pain Assessment & Follow-up: Pain positive & plan documented Measure #431: Unhealthy Alcohol Use Preventative Care & Scrn: Patient not identified as an unhealthy alcohol user Mode of Arrival: Cane - Pain Location Lower Back Non-Pharmacological Interventions: Home Exercise, Inactivity, Massage, Relaxation Technique Pharmacological Interventions: Medication PQRS Narrative: Smoking Status Former smoker Blood Pressure 124/71 Pain Intensity [Lower Back] 5 Scale Used Numeric (1 - 10) Hx Alcohol Use (MH) No Home Medications: Ambulatory Orders Albuterol Sulfate [Proair Hfa] 1 - 2 puff INHALATION RT-Q6H PRN 05/22/17 Aspirin 81 mg PO DAILY 05/22/17 Atorvastatin [Lipitor] 40 mg PO DAILY 05/22/17 Cholecalciferol [Vitamin D3 (25 Mcg = 1000 Iu)] 1,000 unit PO DAILY 05/22/17 Citalopram Hydrobromide [CeleXA] 1.5 tab PO DAILY 05/22/17 Colchicine 1 - 2 tab PO BID PRN 05/22/17 Folic Acid 1 mg PO DAILY 05/22/17 Gabapentin 800 mg PO BID 05/22/17 LORazepam [Ativan] 1 mg PO DAILY PRN 05/22/17 Meclizine [Antivert] 25 mg PO DAILY PRN 05/22/17 Metoprolol Tartrate [Lopressor] 25 mg PO BID 05/22/17 Modafinil [Provigil] 100 mg PO DAILY 05/22/17 Tamsulosin HCl [Flomax] 0.4 mg PO TUSA 05/22/17 Vitamin B Complex 1 cap PO DAILY 05/22/17 Zinc 50 mg PO DAILY 05/22/17 metFORMIN HCL [Glucophage] 500 mg PO DAILY 05/22/17 Thiamine [Vitamin B-1] 100 mg PO DAILY@1200 #30 tab 05/26/17 Magnesium Oxide [Mag-Ox] 400 mg PO DAILY 08/04/17 Omeprazole [PriLOSEC] 40 mg PO DAILY #30 capsule. 08/06/17 Ascorbic Acid [Vitamin C] 500 mg PO DAILY 10/24/21 Memantine [Namenda] 10 mg PO BID 10/24/21
== END ==
LOC: PNWHC3 13:38
DX: M48.061 Spinal stenosis, lumbar region without neurogenic claudication (principal); M47.816 Spondylosis without myelopathy or radiculopathy, lumbar region; M79.18 Myalgia, other site; I48.91 Unspecified atrial fibrillation; I25.10 Atherosclerotic heart disease of native coronary artery without angina pectoris; J44.9 Chronic obstructive pulmonary disease, unspecified; E11.9 Type 2 diabetes mellitus without complications; K21.9 Gastro-esophageal reflux disease without esophagitis; I10 Essential (primary) hypertension; M19.90 Unspecified osteoarthritis, unspecified site; F41.9 Anxiety disorder, unspecified; Z95.1 Presence of aortocoronary bypass graft; Z87.891 Personal history of nicotine dependence; Z79.82 Long term (current) use of aspirin; Z79.899 Other long term (current) drug therapy; Z79.84 Long term (current) use of oral hypoglycemic drugs
CPT/HCPCS: 99211

== ENCOUNTER 2021-12-28 09:47 | Day surgery (SDC) | payer MEDICARE ==
[2021-12-26 16:18] VITALS: BMI 29.5
[~2021-12-28 09:47] MED LIST: LACTATED RINGERS 1,000 ML IV SCH
[2021-12-28 10:19] VITALS: TEMP 97.9
[2021-12-28] MEDS ORDERED: IOPAMIDOL M200 10 ML VIAL ONE (10:21)
[2021-12-28] MEDS ORDERED: methylPREDNISolone ACETATE 40 MG/ML 1 ML VIAL ONE (10:21)
[2021-12-28] MEDS ORDERED: fentaNYL (PF) 50 MCG/ML 2 ML AMP ONE (10:21)
[2021-12-28] MEDS ORDERED: MIDAZOLAM 2 MG/2 ML VIAL ONE (10:21)
[2021-12-28 10:22] LABS: Glucose,Whole Blood 98 mg/dL (75-99)
--- NOTE | 2021-12-28 10:24 | P.PCN ---
Date of Procedure: 12/28/21 Description of Procedure: PREOPERATIVE DIAGNOSIS: lumbar radiculopathy POSTOPERATIVE DIAGNOSIS: Lumbar radiculopathy PROCEDURE 1. Lumbar epidural steroid injection under fluoroscopic guidance at the L4-L5 level. 2. Lumbar epidurogram. Imaging: Fluoroscopy was used, images where saved to the medical record ANESTHESIA: Local with 1% lidocaine 5 ml and 1 mg of Versed and 50 g of fentanyl EBL: Minimal PROCEDURE INDICATION: The patient with low back pain and radiculitis symptoms unresponsive to conservative treatment. Fluoroscopy was used to optimize visualization of the needle placement and to maximize safety. PROCEDURE DESCRIPTION / TECHNIQUE: The patient was seen and identified in the preoperative area. Risks, benefits, complications including but not limited to infections ,bleeding ,allergic reaction to the medications, nerve damage and incomplete pain relief , as well as alternatives to the procedure were discussed with the patient. The patient agreed to proceed with the procedure and signed the consent. IV was started, and vital signs were stable. Patient was taken to the OR and time out was completed. The patient was placed in the prone position on procedure table and a pillow was placed under the abdomen to reduce lumbar lordosis. The lumbosacral area was prepped and draped in the usual sterile fashion. Vitals were closely monitored during the procedure. Using anterior-posterior fluoroscopy, the L4-L5 interlaminar space was identified and the skin over this site was marked and then infiltrated with 1% lidocaine subcutaneously. Subsequently, a 20-gauge Tuohy epidural needle was inserted and advanced toward the epidural space using the Loss of resistance technique and guided by AP and lateral fluoroscopy. The correct needle position in the epidural space was verified with the injection of 1 mL of Omnipaque 180 contrast to observe an acceptable epidurogram, after negative aspiration for blood and CSF and in the absence of paresthesias. Again after negative aspiration, a 2 ml mixture containing 40mg of depomedrol and 1 ml of preservative free Normal Saline was injected and a washout of epidurogram was seen. Needle was withdrawn intact, skin was cleansed, and bandages were applied. COMPLICATIONS: None DISPOSITION / PLANS: The patient was placed in a supine position and transferred to the recovery area in a stable condition for observation. There was no evidence of lower extremity motor or sensory deficit after the procedure. Patient was discharged from the recovery room after meeting discharge criteria. Home discharge instructions were given to the patient by the staff. The patient was reexamined prior to discharge. The patient will follow up as directed.
--- NOTE | 2021-12-28 10:40 | FL ---
Fluoroscopy HISTORY: Pain 2 seconds fluoroscopy time supplied to the referring clinician. 1 intraoperative C-arm images docume nt the procedure. See dictated report from anesthesia.
[2021-12-28] MEDS ORDERED: LACTATED RINGERS 1,000 ML IV ONE (10:46)
[2021-12-28] MEDS ORDERED: IV FLUID CONTINUATION 850 ML IV ONE (10:46)
[2021-12-28 10:58] VITALS: BP 108/68; PULSE 69; RESP 16
== END 2021-12-28 11:24 | disposition home or self-care (01) ==
LOC: ORPAIN 09:47
PROVIDERS: ATTEND Hospitalist
DX: M51.36 Other intervertebral disc degeneration, lumbar region (principal); M54.50 Low back pain, unspecified; M54.16 Radiculopathy, lumbar region; E11.9 Type 2 diabetes mellitus without complications
CPT/HCPCS: 62323; J2250; J1030; J3010; Q9966

== ENCOUNTER → 2022-01-17 | Outpatient (CLI) | payer MEDICARE ==
--- NOTE | 2022-01-17 14:30 | P.PN ---
Subjective Progress Note Date: 01/17/22 Principal diagnosis: A 81 yr old male with at side with a history of severe and chronic low back pain secondary to lumbar degenerative disc diseases and lumbar spondylosis with facet arthropathy presents today for an evaluation of LESI L4-L5 #1. Patient states he obtain 100% pain relief after the procedure for one month but the pain relief has subsided to 70% currently. Pain level is currently at 6 out of 10 in intensity, constant, tight, pressure-type sensation in the lower aspects of his lumbar spine just above his tailbone. Eyes radiation of pain. Pain is provoked by sitting upright in a car for 30 minutes, walking for 10 minutes, bending, twisting or lifting. Pain is alleviated with medications, various topicals, injections, physical therapy 1 year ago, sitting in a recliner, repositioning and rest. Interventional pain procedures completed include LESI L4-L5 #1. Patient is currently on Tylenol OTC, various topical medications. Patient denies any side effects of the medication(s), denies excessive drowsiness or sleepiness, denies suicidal ideation and reports that the current pain medication is helping to control the pain and improve activities of daily living. Patient denies any motor or sensory deficits. Patient denies any fever or night sweats, denies any change in the bowel movements or urination. Physical Examination: -Constitutional: Cooperative. Not in acute distress . -HEENT: Neck is supple. No lymphadenopathy. No thyromegaly. Normal thyroid size. Eyes: No ptosis , no icterus, no photophobia. ENT: No auditory deficits. Normal oropharynx. No Thrush. - Respiratory: Chest clear to auscultations bilaterally. No wheezing. No rhonchi. - Cardiovascular: Regular rate and rhythm. S1 / S2 , no S3 , no S4. - Gastrointestinal: Abdomen soft no tenderness. Bowel sounds positive in all four quadrants. No organomegaly. - Genitourinary: Deferred. - Neurologic: Cranial nerve II to XII intact. No focal neurological deficits. - Psychatric: Alert & oriented x 3. Matching mood & appropriate affect. Judgment and insight intact. - Lymphatic: No Lymphadenopathy. - Musculoskeletal: Cervical spine: Muscle bulk/ tone/ strength in the bilateral upper extremities normal. Facet loading test cervical area positive. Lumbar spine: Motor bulk/ tone/ strength lower extremities , thigh and legs : 5/5 Deep tendon reflexes : Normal Knee Jerk. Normal Ankle Jerk . Vertebral body tenderness to palpation over L4, L5 Lumbar Facet Loading Test positive Straight Leg Raise: positive at 30 degrees right side/ left side Gaenslen's Test positive Sacral spine : Severe tenderness over the Sacroiliac joint: right side / left side Range of motion: Flexion of the lumbar spine <60 degrees Range of motion: Extension of the lumbar spine <20 degrees Gaenslen's Test positive Alphonso test: positive right side / left side Assessment and plan: Chronic low back pain secondary to lumbar degenerative disc disease , lumbar spondylosis with facet arthropathy without myelopathy Recommendation of ALINE L4-L5 #2. May need a series, up to 3 within a six-month period, to obtain optimal pain relief. Risks, benefits of procedure discussed and patient verbalized understanding. Denies anticoagulants use. Admits to a medical history of diabetes mellitus and taking metformin currently. All patient questions answered MAPS reviewed and it was appropriate. I have spent 31 minutes on patient care today. Dr Johnson was available by phone for the evaluation of this patient. The time was used to review the medical records including relevant urine studies and Prescription history (MAPs), review of the available imaging, evaluation and examination of the patient, coordination of care with the medical staff and if applicable referring physicians, as well as creation of the medical record PQRS Measure Charge Sheet PQRS Narrative: Smoking Status Former smoker Hx Alcohol Use (MH) No Home Medications: Ambulatory Orders Albuterol Sulfate [Proair Hfa] 1 - 2 puff INHALATION RT-Q6H PRN 05/22/17 Aspirin 81 mg PO DAILY 05/22/17 Atorvastatin [Lipitor] 40 mg PO DAILY 05/22/17 Cholecalciferol [Vitamin D3 (25 Mcg = 1000 Iu)] 1,000 unit PO DAILY 05/22/17 Citalopram Hydrobromide [CeleXA] 30 tab PO DAILY 05/22/17 Colchicine 1 - 2 tab PO BID PRN 05/22/17 Folic Acid 1 mg PO DAILY 05/22/17 Gabapentin 400 mg PO BID 05/22/17 LORazepam [Ativan] 1 mg PO DAILY PRN 05/22/17 Meclizine [Antivert] 25 mg PO DAILY PRN 05/22/17 Metoprolol Tartrate [Lopressor] 25 mg PO BID 05/22/17 Tamsulosin HCl [Flomax] 0.4 mg PO TUSA 05/22/17 Vitamin B Complex 1 cap PO DAILY 05/22/17 Zinc 50 mg PO DAILY 05/22/17 metFORMIN HCL [Glucophage] 500 mg PO DAILY 05/22/17 Thiamine [Vitamin B-1] 100 mg PO DAILY@1200 #30 tab 05/26/17 Magnesium Oxide [Mag-Ox] 400 mg PO DAILY 08/04/17 Omeprazole [PriLOSEC] 40 mg PO DAILY #30 capsule. 08/06/17 Ascorbic Acid [Vitamin C] 500 mg PO DAILY 10/24/21 Memantine [Namenda] 10 mg PO BID 10/24/21 Acetaminophen [Tylenol Extra Strength] 500 - 1,000 mg PO DIRECTED PRN 12/26/21 Allopurinol [Zyloprim] 100 mg PO DAILY 12/26/21 Baclofen [Lioresal] 10 mg PO HS 12/26/21 Celecoxib [CeleBREX] 100 mg PO DAILY 12/26/21 Ferrous Sulfate [Feosol] 325 mg PO DAILY 12/26/21 Montelukast Sodium [Singulair] 10 mg PO DAILY 12/26/21
[2022-01-17 15:10] VITALS: BP 94/52; PULSE 64; RESP 18; TEMP 97.8
== END ==
LOC: PNWHC3 13:40
PROVIDERS: ATTEND Physician Assistant Medical
DX: M51.36 Other intervertebral disc degeneration, lumbar region (principal); M47.816 Spondylosis without myelopathy or radiculopathy, lumbar region; G89.29 Other chronic pain; Z87.891 Personal history of nicotine dependence
CPT/HCPCS: 99211

== ENCOUNTER 2022-02-27 10:53 | Day surgery (SDC) | payer MEDICARE ==
[2022-02-26 14:25] VITALS: BMI 30.9
[2022-02-27 11:06] VITALS: TEMP 97.9
[2022-02-27] MEDS ORDERED: LACTATED RINGERS 1,000 ML IV ONE (11:06)
[2022-02-27 11:14] LABS: Glucose,Whole Blood 92 mg/dL (75-99)
[2022-02-27] MEDS ORDERED: IOPAMIDOL M200 10 ML VIAL ONE (11:15)
[2022-02-27] MEDS ORDERED: methylPREDNISolone ACETATE 40 MG/ML 1 ML VIAL ONE (11:15)
[2022-02-27] MEDS ORDERED: fentaNYL (PF) 50 MCG/ML 2 ML AMP ONE (11:15)
[2022-02-27] MEDS ORDERED: MIDAZOLAM 2 MG/2 ML VIAL ONE (11:15)
--- NOTE | 2022-02-27 11:16 | P.PCN ---
Date of Procedure: 02/27/22 Description of Procedure: PREOPERATIVE DIAGNOSIS: lumbar radiculopathy POSTOPERATIVE DIAGNOSIS: Lumbar radiculopathy PROCEDURE 1. Lumbar epidural steroid injection #2 under fluoroscopic guidance at the L4-L5 level. 2. Lumbar epidurogram. Imaging: Fluoroscopy was used, images where saved to the medical record ANESTHESIA: Local with 1% lidocaine 5 ml and 1 mg of Versed and 50 g of fentanyl EBL: Minimal PROCEDURE INDICATION: The patient with low back pain and radiculitis symptoms unresponsive to conservative treatment. Fluoroscopy was used to optimize visualization of the needle placement and to maximize safety. PROCEDURE DESCRIPTION / TECHNIQUE: The patient was seen and identified in the preoperative area. Risks, benefits, complications including but not limited to infections ,bleeding ,allergic reaction to the medications, nerve damage and incomplete pain relief , as well as alternatives to the procedure were discussed with the patient. The patient agreed to proceed with the procedure and signed the consent. IV was started, and vital signs were stable. Patient was taken to the OR and time out was completed. The patient was placed in the prone position on procedure table and a pillow was placed under the abdomen to reduce lumbar lordosis. The lumbosacral area was prepped and draped in the usual sterile fashion. Vitals were closely monitored during the procedure. Using anterior-posterior fluoroscopy, the L4-L5 interlaminar space was identified and the skin over this site was marked and then infiltrated with 1% lidocaine subcutaneously. Subsequently, a 20-gauge Tuohy epidural needle was inserted and advanced toward the epidural space using the Loss of resistance technique and guided by AP and lateral fluoroscopy. The correct needle position in the epidural space was verified with the injection of 1 mL of Omnipaque 180 contrast to observe an acceptable epidurogram, after negative aspiration for blood and CSF and in the absence of paresthesias. Again after negative aspiration, a 3 ml mixture containing 40mg of depomedrol and 2 ml of preservative free Normal Saline was injected and a washout of epidurogram was seen. Needle was withdrawn intact, skin was cleansed, and bandages were applied. COMPLICATIONS: None DISPOSITION / PLANS: The patient was placed in a supine position and transferred to the recovery area in a stable condition for observation. There was no evidence of lower extremity motor or sensory deficit after the procedure. Patient was discharged from the recovery room after meeting discharge criteria. Home discharge instructions were given to the patient by the staff. The patient was reexamined prior to discharge. The patient will follow up as directed.
[2022-02-27] MEDS ORDERED: IV FLUID CONTINUATION 1,000 ML IV ONE (11:35)
[2022-02-27 11:39] VITALS: RESP 16
[2022-02-27 11:48] VITALS: BP 120/68; PULSE 66
--- NOTE | 2022-02-27 12:37 | FL ---
EXAMINATION TYPE: FL guided pain mgmt statistic DATE OF EXAM: 02/27/2022 HISTORY: Fluoroscopy time 3 seconds of fluoroscopy provided. IMPRESSION: 1. Fluoroscopy time.
== END 2022-02-27 12:16 ==
LOC: ORPAIN 10:53
PROVIDERS: ATTEND Hospitalist
DX: M54.16 Radiculopathy, lumbar region (principal)
CPT/HCPCS: 62323; J2250; J1030; J3010; Q9966

== ENCOUNTER → 2022-04-23 | Outpatient (CLI) | payer MEDICARE ==
[2022-04-23 12:39] VITALS: BP 106/70; PULSE 65; RESP 16; TEMP 98.2
--- NOTE | 2022-04-23 12:40 | P.PN ---
Subjective Progress Note Date: 04/23/22 Principal diagnosis: A 81 yr old male with at side with a history of severe and chronic low back pain secondary to lumbar degenerative disc diseases and lumbar spondylosis with facet arthropathy presents today for LESI L4-L5 #2. He states he experienced 85% pain relief for 3 weeks status post procedure. Pain level is currently at 5 out of 10 in intensity, constant, dull, achy pain in the lower aspect of his lumbar spine where it meets his tailbone with radiating sharp pain occasionally to the right lower extremity. Pain is provoked by standing, bending and lifting. Pain is alleviated with PT (last time in Dec, 2021 for 6 weeks), alternating heat and ice to different parts of the body, medications (Tylenol OTC, aspercreme), use of a walking cane for ambulatory assistance, laying supine and rest. Interventional pain procedures completed include LESI L4-L5 x 2 Patient is currently on Tylenol OTC Patient denies any side effects of the medication(s), denies excessive drowsiness or sleepiness, denies suicidal ideation and reports that the current pain medication is helping to control the pain and improve activities of daily living. Patient denies any motor or sensory deficits. Patient denies any fever or night sweats, denies any change in the bowel movements or urination. Physical Examination: -Constitutional: Cooperative. Not in acute distress . -HEENT: Neck is supple. No lymphadenopathy. No thyromegaly. Normal thyroid size. Eyes: No ptosis , no icterus, no photophobia. ENT: No auditory deficits. Normal oropharynx. No Thrush. - Respiratory: Chest clear to auscultations bilaterally. No wheezing. No rhonchi. - Cardiovascular: Regular rate and rhythm. S1 / S2 , no S3 , no S4. - Gastrointestinal: Abdomen soft no tenderness. Bowel sounds positive in all four quadrants. No organomegaly. - Genitourinary: Deferred. - Neurologic: Cranial nerve II to XII intact. No focal neurological deficits. - Psychatric: Alert & oriented x 3. Matching mood & appropriate affect. Judgment and insight intact. - Lymphatic: No Lymphadenopathy. - Musculoskeletal: Cervical spine: Muscle bulk/ tone/ strength in the bilateral upper extremities normal Vertebral body tenderness to palpation over Facet loading test positive Thoracic spine Muscle bulk / tone/ strength in the bilateral paraspinal muscles normal Vertebral body tender to palpation over Facet loading test positive Lumbar spine: Motor bulk/ tone/ strength lower extremities , thigh and legs : 5/5 Deep tendon reflexes : Normal Knee Jerk. Normal Ankle Jerk . Vertebral body tenderness to palpation over L5, S1 Lumbar Facet Loading Test positive Straight Leg Raise: positive at 30 degrees right side/ left side Gaenslen's Test positive Sacral spine : Severe tenderness over the Sacroiliac joint: right side / left side Range of motion: Flexion of the lumbar spine <60 degrees Range of motion: Extension of the lumbar spine <20 degrees Gaenslen's Test positive Kyle's Test positive Alphonso test: positive right side / left side Thigh Thrust Test Sacral Thrust Test Assessment and plan: Chronic low back pain secondary to lumbar degenerative disc disease , lumbar spondylosis with facet arthropathy without myelopathy Recommendation of LESI L5-S1. This will be the 3rd in a series of 3 ESIs within a 6 mo period. Risks, benefits of procedure discussed and pt verbalized understanding. Admits to anticoagulant use and medical history of diabetes. Protocol for discontinuation of medications jovanna procedure discussed. All patient questions answered MAPS reviewed and it was appropriate. I have spent 31 minutes on patient care today. Dr Johnson was available by phone for the evaluation of this patient. The time was used to review the medical records including relevant urine studies and Prescription history (MAPs), review of the available imaging, evaluation and examination of the patient, coordination of care with the medical staff and if applicable referring physicians, as well as creation of the medical record PQRS Measure Charge Sheet Mode of Arrival: Cane - Pain Location Lower Back Non-Pharmacological Interventions: Chiropractic Treatment, Physical Therapy Pharmacological Interventions: Epidural, PRN Medication, Topical Medication PQRS Narrative: Smoking Status Former smoker Blood Pressure 106/70 Pain Intensity [Lower Back] 5 Scale Used Numeric (1 - 10) Hx Alcohol Use (MH) No Home Medications: Ambulatory Orders Albuterol Sulfate [Proair Hfa] 1 - 2 puff INHALATION RT-Q6H PRN 05/22/17 Aspirin 81 mg PO DAILY 05/22/17 Atorvastatin [Lipitor] 40 mg PO DAILY 05/22/17 Cholecalciferol [Vitamin D3 (25 Mcg = 1000 Iu)] 1,000 unit PO DAILY 05/22/17 Citalopram Hydrobromide [CeleXA] 30 tab PO DAILY 05/22/17 Colchicine 1 - 2 tab PO BID PRN 05/22/17 Folic Acid 1 mg PO DAILY 05/22/17 Gabapentin 400 mg PO BID 05/22/17 LORazepam [Ativan] 1 mg PO DAILY PRN 05/22/17 Meclizine [Antivert] 25 mg PO DAILY PRN 05/22/17 Metoprolol Tartrate [Lopressor] 25 mg PO BID 05/22/17 Tamsulosin HCl [Flomax] 0.4 mg PO TUSA 05/22/17 Vitamin B Complex 1 cap PO DAILY 05/22/17 Zinc 50 mg PO DAILY 05/22/17 metFORMIN HCL [Glucophage] 500 mg PO DAILY 05/22/17 Thiamine [Vitamin B-1] 100 mg PO DAILY@1200 #30 tab 05/26/17 Magnesium Oxide [Mag-Ox] 400 mg PO DAILY 08/04/17 Omeprazole [PriLOSEC] 40 mg PO DAILY #30 capsule. 08/06/17 Ascorbic Acid [Vitamin C] 500 mg PO DAILY 10/24/21 Memantine [Namenda] 10 mg PO BID 10/24/21 Acetaminophen [Tylenol Extra Strength] 500 - 1,000 mg PO DIRECTED PRN 12/26/21 Allopurinol [Zyloprim] 100 mg PO DAILY 12/26/21 Baclofen [Lioresal] 10 mg PO HS 12/26/21 Celecoxib [CeleBREX] 100 mg PO DAILY 12/26/21 Ferrous Sulfate [Feosol] 325 mg PO DAILY 12/26/21 Montelukast Sodium [Singulair] 10 mg PO DAILY 12/26/21
== END ==
LOC: PNWHC3 12:13
PROVIDERS: ATTEND Specialist
DX: M51.36 Other intervertebral disc degeneration, lumbar region (principal); M47.816 Spondylosis without myelopathy or radiculopathy, lumbar region; G89.29 Other chronic pain; E11.9 Type 2 diabetes mellitus without complications; Z79.84 Long term (current) use of oral hypoglycemic drugs; Z87.891 Personal history of nicotine dependence
CPT/HCPCS: 99211

== ENCOUNTER 2022-06-14 11:23 | Day surgery (SDC) | payer MEDICARE ==
[2022-06-14 12:31] LABS: Glucose,Whole Blood 90 mg/dL (70-110)
[2022-06-14 12:34] VITALS: TEMP 97
[2022-06-14] MEDS ORDERED: MIDAZOLAM 2 MG/2 ML VIAL ONE (12:43)
[2022-06-14] MEDS ORDERED: methylPREDNISolone ACETATE 40 MG/ML 1 ML VIAL ONE (12:43)
[2022-06-14] MEDS ORDERED: fentaNYL (PF) 50 MCG/ML 2 ML AMP ONE (12:43)
[2022-06-14] MEDS ORDERED: IOPAMIDOL M200 10 ML VIAL ONE (12:43)
--- NOTE | 2022-06-14 12:54 | P.PCN ---
Date of Procedure: 06/14/22 Procedure(s) Performed: PREOPERATIVE DIAGNOSIS: 1- Lumbar Degenerative Disc Diseases 2-Lumbar spondylosis with Facet arthropathy without myelopathy. 3-lumbar radiculopathy POSTOPERATIVE DIAGNOSIS: Same as preop diagnosis. PROCEDURE 1. Lumbar epidural steroid injection under fluoroscopic guidance at the L5-S1 level. (Fluoroscopy imaging was available in radiology department) 2. Lumbar epidurogram. ANESTHESIA: moderate sedation with intravenous Versed 1 mg ,and fentanyle 50 Mcg Sedation start time : Sedation end time : EBL: Minimal PROCEDURE INDICATION: The patient with low back pain and radiculitis symptoms unresponsive to conservative treatment. Fluoroscopy was used to optimize visualization of the needle placement and to maximize safety. PROCEDURE DESCRIPTION / TECHNIQUE: The patient was seen and identified in the preoperative area. Risks, benefits, complications including but not limited to infections ,bleeding ,allergic reaction to the medications ,nerve damage and not complete pain releife , and alternatives were discussed with the patient. The patient agreed to proceed with the procedure and signed the consent. IV was started, and vital signs were stable. Patient was taken to the OR and time out was completed. The patient was placed in the prone position on procedure table and a pillow was placed under the abdomen to reduce lumbar lordosis. The lumbosacral area was prepped and draped in the usual sterile fashion.ere closely monitored during the procedure. Conscious sedation was used during the procedure to decrease patients anxiety. Vital signs was monitered during the entire procedure. Using anterior-posterior fluoroscopy, the L5-S1 interlaminar space was identified and the skin over this site was marked and then infiltrated with 1% lidocaine subcutaneously. Subsequently, a 20-gauge Tuohy epidural needle was inserted and advanced toward the epidural space using the ``Loss of resistance technique and guided by AP and lateral fluoroscopy. The correct needle position in the epidural space was verified with the injection of 2 mL of the water soluble contrast dye Isovue 200 contrast and observing an excellent epidurogram with the epidural spread of the dye, after negative aspiration for blood and CSF and in the absence of paresthesias. Again after negative aspiration, a 6 ml mixture containing 40 mg of Depo-medrol , and 2 ml of preservative free Normal Saline, and 2 ml of preservative free lidocaine 1% solution was injected and a washout of epidurogram was seen. Needle was withdrawn intact, skin was cleansed, and bandages were applied. COMPLICATIONS: None DISPOSITION / PLANS: The patient was placed in a supine position and transferred to the recovery area in a stable condition for observation. There was no evidence of lower extremity motor or sensory deficit after the procedure. Patient was discharged from the recovery room after meeting discharge criteria. Home discharge instructions were given to the patient by the staff. The patient was reexamined prior to discharge. The patient will schedule a follow up in the clinic in 2-4 weeks.
[2022-06-14] MEDS ORDERED: IV FLUID CONTINUATION 800 ML IV ONE (12:57)
--- NOTE | 2022-06-14 13:08 | FL ---
EXAMINATION TYPE: FL guided pain mgmt statistic DATE OF EXAM: 06/14/2022 HISTORY: Fluoroscopy time 1 seconds of fluoroscopy provided. IMPRESSION: 1. Fluoroscopy time.
[2022-06-14 13:10] VITALS: RESP 20
[2022-06-14 13:43] VITALS: BP 106/72; PULSE 76
== END 2022-06-14 13:44 | disposition home or self-care (01) ==
LOC: ORPAIN 11:23
PROVIDERS: ATTEND Specialist
DX: M51.16 Intervertebral disc disorders with radiculopathy, lumbar region (principal); M47.26 Other spondylosis with radiculopathy, lumbar region
CPT/HCPCS: 62323; J2250; J1030; J3010; Q9966

== ENCOUNTER → 2022-08-10 | Day surgery (SDC) | payer MEDICARE ==
[~2022-08-10] MED LIST changes: +IV FLUID CONTINUATION 500 ML IV ONE; +LACTATED RINGERS 500 ML IV ONE; +LIDOCAINE 1% (10MG/ML) FOR IV START INTRADERMA PRN; +MIDAZOLAM 2 MG/2 ML VIAL ONE; +ROPIVACAINE 5 MG/ML 20 ML AMPULE ONE; +fentaNYL (PF) 50 MCG/ML 2 ML AMP ONE; +methylPREDNISolone ACETATE 40 MG/ML 1 ML VIAL ONE
[2022-08-10 09:35] VITALS: TEMP 97
[2022-08-10 10:21] LABS: Glucose,Whole Blood 87 mg/dL (70-110)
--- NOTE | 2022-08-10 10:34 | P.PCN ---
Date of Procedure: 08/10/22 Procedure(s) Performed: PREOPERATIVE DIAGNOSIS : 1- Lumbar spondylosis with Facet Arthropathy without myelopathy . 2- Lumber degenerative disc disease POSTOPERATIVE DIAGNOSIS: 1- Lumbar spondylosis with Facet Arthropathy without myelopathy . 2- Lumber degenerative disc disease PROCEDURE: Diagnostic bilateral L3 , L4 , and L5 medial branch block under fluoroscopy guidance(fluoroscopy images available in the radiology Department ) ( To target the facet joint between bilateral L4-5 , and L5-S1 )# 1st ANESTHESIA:, Monitored anesthesia care as per anesthesia department. EBL: Minimal COMPLICATION: None PROCEDURE INDICATION: Chronic low back pain secondary to Facet arthropathy unresponsive to conservative treatment. PROCEDURE DESCRIPTION: the patient was seen and identified in the preop holding area , risks and benefits and possible complications of the procedure and alternative were discussed with the patient, and the patient agreed to proceed with the procedure and signed the consent and vital signs monitored during the procedure and fluoroscopy was used to maximize the benefit and accuracy of the needle placement, and sedation was given to decrease patient anxiety, patient was taken to the procedure room and placed in prone position vital signs monitored in the back prepped with chlorhexidine X3 then under strict sterile technique using a right oblique fluoroscopy ,the junction of the transverse process and the superior articulating process of the right L3 , L4 , and L5 vertebra which corresponding to the fluoroscopy image of the eye of the Jeffry dog on the block side for the medial branches and subsequently , after local infiltration of skin and subcu tissuies with Ropivacaine 0.5 % , one mL at each level ,then 22-gauge Quincke-type needles , 3 needle was used , each one of them placed at the junction of the base of the transverse process and the superior articular process at the appropriate level, and the needle was advanced until the periosteum contacted, needle placement confirmed with AP oblique and lateral view and after appropriate needle placement confirmed, and after negative aspiration for heme and CSF and there was no paresthesia 1-1/2 mL of Ropivacaine 0.5% mixed with 20 mg Depo-Medrol , then half mL injected at each level after negative aspiration the needle subsequently removed and the same procedure repeated for the left side at left side at L3 , L4 and L5 levels. At the end of the procedure and the needles removed and a bandage applied after the skin was cleaned the cleaning solution patient taken to recovery room in stable condition and monitors in the recovery room for 20-30 minutes and discharged home in stable condition after discharge criteria met and patient will follow up with the pain clinic in 2-4 weeks
--- NOTE | 2022-08-10 10:47 | FL ---
Fluoroscopy HISTORY: Pain 5 seconds fluoroscopy time supplied to the referring clinician. 4 intraoperative C-arm images docume nt the procedure. See dictated report from anesthesia.
[2022-08-10 11:01] VITALS: BP 124/67; PULSE 62; RESP 20
== END ==
LOC: ORPAIN 09:04
PROVIDERS: ATTEND Specialist
DX: M51.36 Other intervertebral disc degeneration, lumbar region (principal); M47.816 Spondylosis without myelopathy or radiculopathy, lumbar region; G89.29 Other chronic pain; I48.91 Unspecified atrial fibrillation; I10 Essential (primary) hypertension; J44.9 Chronic obstructive pulmonary disease, unspecified; E11.9 Type 2 diabetes mellitus without complications; E07.9 Disorder of thyroid, unspecified; F03.90 Unspecified dementia, unspecified severity, without behavioral disturbance, psychotic disturbance, mood disturbance, and anxiety; K21.9 Gastro-esophageal reflux disease without esophagitis; Z79.890 Hormone replacement therapy; Z79.891 Long term (current) use of opiate analgesic; Z79.899 Other long term (current) drug therapy; Z79.84 Long term (current) use of oral hypoglycemic drugs
CPT/HCPCS: 64493; 64494 ×2; J2250; J1030; J3010; J2795

== ENCOUNTER → 2022-08-22 | Outpatient (CLI) | payer MEDICARE ==
[2022-08-22 14:03] VITALS: BP 83/52; PULSE 72; RESP 18
--- NOTE | 2022-08-22 14:50 | P.PAINPG ---
PQRS Measure Charge Sheet Comment: A 81 yr old male w at side with a history of severe and chronic low back pain secondary to lumbar degenerative disc diseases and lumbar spondylosis with facet arthropathy without myelopathy presents today for evaluation of BL MBB L3- L5 #1. Pt states he experienced 80% pain relief x 1 week s/p procedure. Pain level is currently at 8 /10 in intensity, constant, localized in lower lumbar spine, dull/ achy in character w shooting towards BL hips. Pain is provoked by twisting or standing/walking for periods of 10 min or more. Pain is alleviated with meds (neurontin, tylenol ES), use of a cane for ambulatory assistance, repositioning and rest. Interventional pain procedures completed include BL MBB L3-L5 x1. Patient is currently on Tylenol ES, Neurontin Patient denies any side effects of the medication(s), denies excessive drowsiness or sleepiness, denies suicidal ideation and reports that the current pain medication is helping to control the pain and improve activities of daily living. Patient denies any motor or sensory deficits. Patient denies any fever or night sweats, denies any change in the bowel movements or urination. Physical Examination: -Constitutional: Cooperative. Not in acute distress . - Neurologic: Cranial nerve II to XII intact. No focal neurological deficits. - Psychatric: Alert & oriented x 3. Matching mood & appropriate affect. Judgment and insight intact. - Musculoskeletal: Cervical spine: Muscle bulk/ tone/ strength in the bilateral upper extremities normal Vertebral body tenderness to palpation over Spurling test positive Distraction test positive Facet loading test positive Thoracic spine Muscle bulk / tone/ strength in the bilateral paraspinal muscles normal Vertebral body tender to palpation over Facet loading test positive Lumbar spine: Motor bulk/ tone/ strength lower extremities , thigh and legs : 5/5 Deep tendon reflexes : Normal Knee Jerk. Normal Ankle Jerk . Vertebral body tenderness to palpation over Lumbar Facet Loading Test positive over BL L4-L5, L5-S1 w palpable paraspinal TTP Straight Leg Raise: positive at 30 degrees right side/ left side Gaenslen's Test positive Sacral spine : Severe tenderness over the Sacroiliac joint: right side / left side Range of motion: Flexion of the lumbar spine <60 degrees Range of motion: Extension of the lumbar spine <20 degrees Gaenslen's Test positive Kyle's Test positive Alphonso test: positive right side / left side Thigh Thrust Test Sacral Thrust Test Assessment and plan: Chronic low back pain secondary to lumbar degenerative disc disease , lumbar spondylosis with facet arthropathy without myelopathy Recommendation of BL MBB L4-L5, L5-S1 #2. May need a series of injections, up until RFA, for optimal pain relief. Risks, benefits of procedure discussed and pt verbalized understanding. Admits to anticoagulant use or medical history of diabetes. Protocol for discontinuation/ continuation of medications jovanna procedure discussed. All patient questions answered I have spent less than 30 minutes on patient care today. Dr Johnson was available by phone for the evaluation of this patient. The time was used to review the medical records including relevant urine studies and Prescription history (MAPs), review of the available imaging, evaluation and examination of the patient, coordination of care with the medical staff and if applicable referring physicians, as well as creation of the medical record PQRS Narrative: Smoking Status Former smoker Hx Alcohol Use (MH) No Home Medications: Ambulatory Orders Albuterol Sulfate [Proair Hfa] 1 - 2 puff INHALATION RT-Q6H PRN 05/22/17 Aspirin 81 mg PO DAILY 05/22/17 Atorvastatin [Lipitor] 40 mg PO DAILY 05/22/17 Cholecalciferol [Vitamin D3 (25 Mcg = 1000 Iu)] 1,000 unit PO DAILY 05/22/17 Citalopram Hydrobromide [CeleXA] 30 mg PO DAILY 05/22/17 Folic Acid 1 mg PO DAILY 05/22/17 Gabapentin 400 mg PO BID 05/22/17 LORazepam [Ativan] 1 mg PO DAILY PRN 05/22/17 Meclizine [Antivert] 25 mg PO DAILY PRN 05/22/17 Metoprolol Tartrate [Lopressor] 25 mg PO BID 05/22/17 Tamsulosin HCl [Flomax] 0.4 mg PO TUSA 05/22/17 Vitamin B Complex 1 cap PO DAILY 05/22/17 Zinc 50 mg PO DAILY 05/22/17 Thiamine [Vitamin B-1] 100 mg PO DAILY@1200 #30 tab 05/26/17 Magnesium Oxide [Mag-Ox] 400 mg PO DAILY 08/04/17 Ascorbic Acid [Vitamin C] 500 mg PO DAILY 10/24/21 Memantine [Namenda] 10 mg PO BID 10/24/21 Acetaminophen [Tylenol Extra Strength] 500 - 1,000 mg PO DIRECTED PRN 12/26/21 Baclofen [Lioresal] 10 mg PO HS 12/26/21 Celecoxib [CeleBREX] 100 mg PO QAM 12/26/21 Ferrous Sulfate [Feosol] 325 mg PO DAILY 12/26/21 Montelukast Sodium [Singulair] 10 mg PO DAILY 12/26/21 allopurinoL [Zyloprim] 100 mg PO DAILY 12/26/21 Omeprazole [PriLOSEC] 20 mg PO QAM 05/25/22 Levothyroxine Sodium [Synthroid] 50 mcg PO DAILY 06/12/22 Controlled Substance Measures - Controlled Substance Measures Is patient prescribed a controlled substance at discharge?: No
== END ==
LOC: PNWHC3 13:43
PROVIDERS: ATTEND Specialist
DX: M51.36 Other intervertebral disc degeneration, lumbar region (principal); M47.816 Spondylosis without myelopathy or radiculopathy, lumbar region; G89.29 Other chronic pain; Z87.891 Personal history of nicotine dependence
CPT/HCPCS: 99211

== ENCOUNTER 2022-09-27 10:02 | Day surgery (SDC) | payer MEDICARE ==
[2022-09-24 11:11] VITALS: BMI 28.5
[~2022-09-27 10:02] MED LIST changes: -IV FLUID CONTINUATION 500 ML IV ONE; -LACTATED RINGERS 500 ML IV ONE; -MIDAZOLAM 2 MG/2 ML VIAL ONE; -ROPIVACAINE 5 MG/ML 20 ML AMPULE ONE; -fentaNYL (PF) 50 MCG/ML 2 ML AMP ONE; -methylPREDNISolone ACETATE 40 MG/ML 1 ML VIAL ONE
[2022-09-27 10:29] VITALS: RESP 16; TEMP 97.1
[2022-09-27 10:49] LABS: Glucose,Whole Blood 92 mg/dL (70-110)
[2022-09-27] MEDS ORDERED: ROPIVACAINE 5 MG/ML 20 ML AMPULE ONE (10:49)
[2022-09-27] MEDS ORDERED: MIDAZOLAM 2 MG/2 ML VIAL ONE (10:49)
[2022-09-27] MEDS ORDERED: TRIAMCINOLONE ACETONIDE 40 MG/ML 1 ML VIAL ONE (10:49)
--- NOTE | 2022-09-27 11:05 | P.PCN ---
Date of Procedure: 09/27/22 Description of Procedure: Pre- and Post-operative Diagnosis: Lumbar facet arthropathy, and lumbar spondylosis without myelopathy. Procedure: #2 Diagnostic Medial Branch Block at bilateral Lumbar 4/5 and #2 diagnostic dorsal ramus block at Lumbar 5/ sacral ala levels (total 4 levels) Surgeon: Memo Mcleod Anesthesia: Local: 1% Lidocaine, IV sedation : Versed 1 mg Sedation supervision start time: 1051 Sedation supervision ended time: 1103 Complications: None EBL: None Specimen removed: None Fluoroscopic image: Saved to patient electronic medical records. Indications for Procedure: The patient is well known to pain clinic for his chronic low back pain management. The lumbar facet loading test was positive with a clinical diagnosis of lumbar facet arthropathy. Failed with conservative therapy. Patient had a great pain relief with the previous lumbar medial branch block. Came here for interventional help for better pain relief. Procedure and Findings: The patient was seen and examined. The written informed consent was obtained after explaining the risks, benefits and alternatives of the procedure to the patient. The patient was brought to the procedure room and was placed in the prone position on the operating table table. A pillow was placed under the abdomen to reduce lumbar lordosis. Standard anesthesia monitoring was done through out the procedure. The skin preparation was done with ChloraPrep X1, and draping was done in usual sterile fashion. Sterile technique was observed throughout the procedure. Under fluoroscopic guidance, right-sided the Lumbar 4, 5 and Sacral ala levels were identified in the AP view. For lumbar L4, and L5 levels the targeting area of superior articular process, and close to the most medial and superior aspect of transverse process identified, marked. 1ml of 1% Lidocaine was used with a 25 gauge needle to achieve adequate local anesthesia of the skin and subcutaneous tissue at each level. A 22 gauge 3.5 inch spinal needle was placed and advanced targeting area which was close to the most medial and superior aspect of the transverse process. For Lumbar 5/ sacral ala level, fluoroscope was used in the anteroposterior view, and the needle tip was placed at the superior and most medial part of sacral ala close to the superior articular process. A bony contact was obtained and needle tip position was confirmed at anteroposterior view. No paresthesia was noted. A negative aspiration was confirmed. 1 ml solution per level was injected, the block solution containing 5 ml of 0.5% ropivacaine preservative-free solution mixed with 40 MG of Kenalog. The needles were removed intact. Entire procedure repeated on the left side. Lumbar area was cleaned and bandages were applied. Disposition : The patient tolerated the procedure very well. The patient was transferred to the recovery room and remained stable until discharged home. The patient was given detailed discharge instructions for infecti a on, bleeding, and increased pain at the injection site, and was advised to seek immediate medical attention should significant side effects develop. The patient will be scheduled with Pain Clinic within 4 weeks for lumbar radiofrequency ablation if it's helpfu
[2022-09-27] MEDS ORDERED: IV FLUID CONTINUATION 900 ML IV ONE (11:11)
--- NOTE | 2022-09-27 11:22 | FL ---
EXAMINATION TYPE: FL guided pain mgmt statistic DATE OF EXAM: 09/27/2022 HISTORY: Fluoroscopy time 10 seconds of fluoroscopy provided. IMPRESSION: 1. Fluoroscopy time.
[2022-09-27 11:33] VITALS: BP 136/70; PULSE 65
== END 2022-09-27 11:52 | disposition home or self-care (01) ==
LOC: ORPAIN 10:02
DX: M47.816 Spondylosis without myelopathy or radiculopathy, lumbar region (principal); I10 Essential (primary) hypertension; J44.9 Chronic obstructive pulmonary disease, unspecified; I48.91 Unspecified atrial fibrillation; E11.9 Type 2 diabetes mellitus without complications; K21.9 Gastro-esophageal reflux disease without esophagitis; M19.90 Unspecified osteoarthritis, unspecified site; C61 Malignant neoplasm of prostate; Z79.84 Long term (current) use of oral hypoglycemic drugs
CPT/HCPCS: 64493; 64494; J2250; J3301; J2795

== ENCOUNTER → 2022-10-22 | Outpatient (CLI) | payer MEDICARE ==
[2022-10-22 13:04] VITALS: BP 86/51; PULSE 63; RESP 18; TEMP 98.2
--- NOTE | 2022-10-22 15:37 | P.PAINPG ---
PQRS Measure Charge Sheet Comment: A 82 yr old male w at side with a history of severe and chronic low back pain secondary to lumbar DDD and spondylosis with facet arthropathy without myelopathy presents today for evaluation s/p BL Facet Block of the Medial Branches L4-L5, L5-S1 #2. Pt states he experienced 80 % pain relief x 2 wks s/p procedure. Pain level is currently at 5 /10 in intensity, constant, localized in the lower lumbar spine, dull in character w tingling towards the BL hips and LEs. Pain is provoked by bending and lifting. Pain is alleviated with medications (Neurontin, Tylenol), topicals, injections, heat, PT in October 2021, use of a cane for ambulatory assistance, massage therapy 1 year ago, laying supine on his side, repositioning and rest. Interventional pain procedures completed include BL MBB L3-L5 x2 Patient is currently on Neurontin, Tylenol Patient denies any side effects of the medication(s), denies excessive drowsiness or sleepiness, denies suicidal ideation and reports that the current pain medication is helping to control the pain and improve activities of daily living. Patient denies any motor or sensory deficits. Patient denies any fever or night sweats, denies any change in the bowel movements or urination. Physical Examination: -Constitutional: Cooperative. Not in acute distress . - Neurologic: Cranial nerve II to XII intact. No focal neurological deficits. - Psychatric: Alert & oriented x 3. Matching mood & appropriate affect. Judgment and insight intact. - Musculoskeletal: Cervical spine: Muscle bulk/ tone/ strength in the bilateral upper extremities normal Vertebral body tenderness to palpation over Spurling test positive Distraction test positive Facet loading test positive Thoracic spine Muscle bulk / tone/ strength in the bilateral paraspinal muscles normal Vertebral body tender to palpation over Facet loading test positive Lumbar spine: Motor bulk/ tone/ strength lower extremities , thigh and legs : 5/5 Deep tendon reflexes : Normal Knee Jerk. Normal Ankle Jerk . Vertebral body tenderness to palpation over Lumbar Facet Loading Test positive TTP over BL L4-L5, L5-S1 facets Straight Leg Raise: positive at 30 degrees right side/ left side Gaenslen's Test positive Sacral spine : Severe tenderness over the Sacroiliac joint: right side / left side Range of motion: Flexion of the lumbar spine <60 degrees Range of motion: Extension of the lumbar spine <20 degrees Gaenslen's Test positive Alphonso test: positive right side / left side Thigh Thrust Test Sacral Thrust Test Assessment and plan: Chronic low back pain secondary to lumbar degenerative disc disease, spondylosis with facet arthropathy without myelopathy Recommendation of BL RFA L4-L5, L5-S1. Pt exhibited substantial pain relief w prior facet blocks of the medial branches. Risks, benefits of procedure discussed and pt verbalized understanding. Admits to anticoagulant use or medical history of diabetes. Protocol for discontinuation/ continuation of medications per i procedure discussed. All patient questions answered I have spent less than 30 minutes on patient care today. Dr Johnson was a vailable by phone for the evaluation of this patient. The time was used to review the medical records including relevant urine studies and Prescription history (MAPs), review of the available imaging, evaluation and examination of the patient, coordination of care with the medical staff and if applicable referring physicians, as well as creation of the medical record PQRS Narrative: Smoking Status Former smoker Hx Alcohol Use (MH) No Home Medications: Ambulatory Orders Albuterol Sulfate [Proair Hfa] 1 - 2 puff INHALATION RT-Q6H PRN 05/22/17 Aspirin 81 mg PO DAILY 05/22/17 Atorvastatin [Lipitor] 40 mg PO DAILY 05/22/17 Cholecalciferol [Vitamin D3 (25 Mcg = 1000 Iu)] 1,000 unit PO DAILY 05/22/17 Citalopram Hydrobromide [CeleXA] 30 mg PO DAILY 05/22/17 Folic Acid 1 mg PO DAILY 05/22/17 Gabapentin 400 mg PO BID 05/22/17 LORazepam [Ativan] 1 mg PO DAILY PRN 05/22/17 Meclizine [Antivert] 25 mg PO DAILY PRN 05/22/17 Metoprolol Tartrate [Lopressor] 25 mg PO BID 05/22/17 Tamsulosin HCl [Flomax] 0.4 mg PO TUSA 05/22/17 Vitamin B Complex 1 cap PO DAILY 05/22/17 Zinc 50 mg PO DAILY 05/22/17 Thiamine [Vitamin B-1] 100 mg PO DAILY@1200 #30 tab 05/26/17 Magnesium Oxide [Mag-Ox] 400 mg PO DAILY 08/04/17 Ascorbic Acid [Vitamin C] 500 mg PO DAILY 10/24/21 Memantine [Namenda] 10 mg PO BID 10/24/21 Acetaminophen [Tylenol Extra Strength] 500 - 1,000 mg PO DIRECTED PRN 12/26/21 Baclofen [Lioresal] 10 mg PO HS 12/26/21 Celecoxib [CeleBREX] 100 mg PO QAM 12/26/21 Ferrous Sulfate [Feosol] 325 mg PO DAILY 12/26/21 Montelukast Sodium [Singulair] 10 mg PO DAILY 12/26/21 allopurinoL [Zyloprim] 100 mg PO DAILY 12/26/21 Omeprazole [PriLOSEC] 20 mg PO QAM 05/25/22 Levothyroxine Sodium [Synthroid] 50 mcg PO DAILY 06/12/22 Controlled Substance Measures - Controlled Substance Measures Is patient prescribed a controlled substance at discharge?: No
== END ==
LOC: PNWHC3 12:00
PROVIDERS: ATTEND Specialist
DX: M47.816 Spondylosis without myelopathy or radiculopathy, lumbar region (principal); M51.36 Other intervertebral disc degeneration, lumbar region; G89.29 Other chronic pain; Z87.891 Personal history of nicotine dependence
CPT/HCPCS: 99211

== ENCOUNTER 2022-12-07 12:33 | Day surgery (SDC) | payer MEDICARE ==
[2022-12-07 13:09] VITALS: TEMP 97.9
[2022-12-07] MEDS ORDERED: ROPIVACAINE 5 MG/ML 20 ML AMPULE ONE (13:11)
[2022-12-07] MEDS ORDERED: methylPREDNISolone ACETATE 40 MG/ML 1 ML VIAL ONE (13:11)
[2022-12-07 13:12] LABS: Glucose,Whole Blood 76 mg/dL (70-110)
[2022-12-07] MEDS ORDERED: fentaNYL (PF) 50 MCG/ML 2 ML AMP ONE (13:13)
[2022-12-07] MEDS ORDERED: MIDAZOLAM 2 MG/2 ML VIAL ONE (13:13)
--- NOTE | 2022-12-07 14:06 | P.PCN ---
Date of Procedure: 12/07/22 Procedure(s) Performed: PREOPERATIVE DIAGNOSIS: 1-Lumbar Spondylosis with Facet Arthropathy without myelopathy. 2- Lumber degenerative disc disease. POSTOPERATIVE DIAGNOSIS: 1- Lumbar Spondylosis with Facet Arthropathy without myelopathy. 2- Lumber degenerative disc disease. PROCEDURES : Bilateral Radiofrequency thermocoagulation, L3 , L4 , and L5 medial branch, with fluoroscopic guidance (fluoroscopy images available in the radiology department) ( to denervate the facet joint at bilateral L4-5 ,and L5-S1 levels ). ANESTHESIA: Monitored anesthesia care as per anesthesia department . EBL: Minimal PROCEDURE INDICATION: The patient with low back pain secondary to lumbar facet arthropathy who had more than 50% relief of her pain with previous diagnostic lumbar medial branch block with bupivacaine. PROCEDURE DESCRIPTION / TECHNIQUE: The patient was seen and identified in the preoperative area. Risks, benefits, complications, including but not limited to risk of infection ,bleeding , allergic reactions to the medications and no complete pain releife , and alternatives were discussed with the patient, the patient agreed to proceed with the procedure and signed the consent. IV was started. Vital signs remained stable throughout the procedure. Patient was taken to the OR and time out was completed. The patient was placed in the prone position on the procedure table. The lumber area was prepped and draped in the usual sterile fashion. . Vital signs were closely monitored during the procedure .IV sedation was used during the procedure to decrease patients anxiety. Using AP and then oblique fluoroscopy, the ``eye of the Jeffry dog gunner esponding to the connection between the superior and transverse articular processes of right L3, L4, and L5 were identified, marked, and localized with 1% lidocaine. Subsequently, a [id number] radiofrequency cannula with a 10- mm active tip was advanced guided by fluoroscopy to each of the``eyes of the Jeffry dog at right L3, L4, and L5. Each site then underwent sensory testing at 50 Hz and 0 to 1 volt and motor testing at 2.5 Hz and 0 to 3 volt with local stimulation, but no radicular symptoms down the legs. Thereafter each sites underwent radiofrequency thermocoagulation at 80 degrees celsius for 90 seconds after injecting 0.5 ml of PF Ropivacaine 1ml, then after the thermocoagulation done , 1 ml of the block solution containing Depo-Medrol 20 mg and 3 ml of Ropivacaine 0.5% was injected at the right L3 , L4 , and L5 , levels after negative aspiration of CSF and blood and with no paresthesias. Cannulas were retracted while injecting lidocaine 1% until the needle is out. The same procedure was repeated at the level of Left L3, L4, and L5 levels. At the end of the procedure, the skin was cleansed and bandages were applied. COMPLICATIONS: No acute complications. DISPOSITION / PLANS: The patient was placed in a supine position and transferred to the recovery area in a stable condition for observation and was discharged from the recovery room after meeting discharge criteria. Home discharge instructions given to the patient by the staff. The patient was reexamined prior to discharge. The patient will schedule a follow up in the clinic in 2-4 weeks.
[2022-12-07] MEDS ORDERED: IV FLUID CONTINUATION 400 ML IV ONE (14:15)
--- NOTE | 2022-12-07 14:15 | FL ---
EXAMINATION TYPE: FL guided pain mgmt statistic DATE OF EXAM: 12/07/2022 HISTORY: Fluoroscopy time 19 seconds of fluoroscopy provided. IMPRESSION: 1. Fluoroscopy time.
[2022-12-07 14:23] VITALS: RESP 16
[2022-12-07 14:39] VITALS: BP 133/75; PULSE 71
== END 2022-12-07 15:05 | disposition home or self-care (01) ==
LOC: ORPAIN 12:33
PROVIDERS: ATTEND Specialist
DX: M47.816 Spondylosis without myelopathy or radiculopathy, lumbar region (principal); M51.36 Other intervertebral disc degeneration, lumbar region; I25.10 Atherosclerotic heart disease of native coronary artery without angina pectoris; I10 Essential (primary) hypertension; I48.91 Unspecified atrial fibrillation; J44.9 Chronic obstructive pulmonary disease, unspecified; E03.9 Hypothyroidism, unspecified; F32.A Depression, unspecified; F41.9 Anxiety disorder, unspecified; C61 Malignant neoplasm of prostate; K21.9 Gastro-esophageal reflux disease without esophagitis; F03.90 Unspecified dementia, unspecified severity, without behavioral disturbance, psychotic disturbance, mood disturbance, and anxiety; Z96.659 Presence of unspecified artificial knee joint; Z95.1 Presence of aortocoronary bypass graft; Z96.649 Presence of unspecified artificial hip joint; Z90.49 Acquired absence of other specified parts of digestive tract; Z79.83 Long term (current) use of bisphosphonates; Z79.51 Long term (current) use of inhaled steroids; Z79.891 Long term (current) use of opiate analgesic; Z79.890 Hormone replacement therapy; Z79.02 Long term (current) use of antithrombotics/antiplatelets; Z79.899 Other long term (current) drug therapy
CPT/HCPCS: 64636 ×2; 64635; J2250; J1030; J3010; J2795

== ENCOUNTER → 2022-12-20 | Outpatient (CLI) | payer MEDICARE ==
[2022-12-20 14:47] VITALS: BP 86/55; PULSE 64; RESP 18; TEMP 98.6
--- NOTE | 2022-12-20 15:04 | P.PAINPG ---
PQRS Measure Charge Sheet Comment: 82 yr old male with a history of severe and chronic LBP secondary to lumbar DDD and spondylosis with facet arthropathy without myelopathy presents today for evaluation s/p BL RFA L4-L5, L5-S1. Pt states he experienced 80 % pain relief s/p procedure. Pain level is provoked at 5 /10 in intensity, constant, localized in the cervical spine, throbbing in character w shooting towards the top of scalp/ head. Pain is provoked by hyperextension. Pain is alleviated with hot showers, heat, medications (Tyl ES), repositioning and rest. Pt states topicals do not help and he hasn't tried PT or chiropractic treatments. Interventional pain procedures completed include BL RFA L3-L5 (Nov 2022), ESIs L4-L5, L5-S1. Patient is currently on Tyl ES Patient denies any side effects of the medication(s), denies excessive drowsiness or sleepiness, denies suicidal ideation and reports that the current pain medication is helping to control the pain and improve activities of daily living. Patient denies any motor or sensory deficits. Patient denies any fever or night sweats, denies any change in the bowel movements or urination. Physical Examination: -Constitutional: Cooperative. Not in acute distress . - Neurologic: Cranial nerve II to XII intact. No focal neurological deficits. - Psychatric: Alert & oriented x 3. Matching mood & appropriate affect. Judgment and insight intact. - Musculoskeletal: Cervical spine: BL YUMIKO TTP Muscle bulk/ tone/ strength in the bilateral upper extremities normal Vertebral body tenderness to palpation over Spurling test positive Distraction test positive Facet loading test positive Thoracic spine Muscle bulk / tone/ strength in the bilateral paraspinal muscles normal Vertebral body tender to palpation over Facet loading test positive Lumbar spine: Motor bulk/ tone/ strength lower extremities , thigh and legs : 5/5 Deep tendon reflexes : Normal Knee Jerk. Normal Ankle Jerk . Vertebral body tenderness to palpation over Lumbar Facet Loading Test positive Straight Leg Raise: positive at 30 degrees right side/ left side Gaenslen's Test positive Sacral spine : Severe tenderness over the Sacroiliac joint: right side / left side Range of motion: Flexion of the lumbar spine <60 degrees Range of motion: Extension of the lumbar spine <20 degrees Gaenslen's Test positive Alphonso test: positive right side / left side Thigh Thrust Test Sacral Thrust Test Assessment and plan: Chronic neck pain/ ONEILL secondary to cervicogenic ONEILL and occipital neuralgia Recommendation of MRI without contrast of the head re: Occipital Neuralgia/ Cervicogenic ONEILL. May return to the clinic within 2-4 wks for a re evaluation. All patient questions answered I have spent less than 30 minutes on patient care today. Dr Johnson was available by phone for the evaluation of this patient. The time was used to review the medical records including relevant urine studies and Prescription history (MAPs), review of the available imaging, evaluation and examination of the patient, coordination of care with the medical staff and if applicable referring physicians, as well as creation of the medical record PQRS Narrative: Smoking Status Former smoker Hx Alcohol Use (MH) No Home Medications: Ambulatory Orders Albuterol Sulfate [Proair Hfa] 1 - 2 puff INHALATION RT-Q6H PRN 05/22/17 Aspirin 81 mg PO DAILY 05/22/17 Atorvastatin [Lipitor] 40 mg PO DAILY 05/22/17 Cholecalciferol [Vitamin D3 (25 Mcg = 1000 Iu)] 1,000 unit PO DAILY 05/22/17 Citalopram Hydrobromide [CeleXA] 30 mg PO DAILY 05/22/17 Folic Acid 1 mg PO DAILY 05/22/17 Gabapentin 400 mg PO BID 05/22/17 LORazepam [Ativan] 1 mg PO DAILY PRN 05/22/17 Meclizine [Antivert] 25 mg PO DAILY PRN 05/22/17 Metoprolol Tartrate [Lopressor] 25 mg PO BID 05/22/17 Tamsulosin HCl [Flomax] 0.4 mg PO TUSA 05/22/17 Vitamin B Complex 1 cap PO DAILY 05/22/17 Zinc 50 mg PO DAILY 05/22/17 Thiamine [Vitamin B-1] 100 mg PO DAILY@1200 #30 tab 05/26/17 Magnesium Oxide [Mag-Ox] 400 mg PO DAILY 08/04/17 Ascorbic Acid [Vitamin C] 500 mg PO DAILY 10/24/21 Memantine [Namenda] 10 mg PO BID 10/24/21 Acetaminophen [Tylenol Extra Strength] 500 - 1,000 mg PO DIRECTED PRN 12/26/21 Baclofen [Lioresal] 10 mg PO HS 12/26/21 Celecoxib [CeleBREX] 100 mg PO QAM 12/26/21 Ferrous Sulfate [Feosol] 65 mg PO DAILY 12/26/21 Montelukast Sodium [Singulair] 10 mg PO DAILY 12/26/21 allopurinoL [Zyloprim] 100 mg PO DAILY 12/26/21 Omeprazole [PriLOSEC] 20 mg PO QAM 05/25/22 Levothyroxine Sodium [Synthroid] 50 mcg PO DAILY 06/12/22 Controlled Substance Measures - Controlled Substance Measures Is patient prescribed a controlled substance at discharge?: No
== END | disposition home or self-care (01) ==
LOC: PNWHC3 13:27
PROVIDERS: ATTEND Specialist
DX: G89.29 Other chronic pain (principal); M51.36 Other intervertebral disc degeneration, lumbar region; Z79.82 Long term (current) use of aspirin; Z87.891 Personal history of nicotine dependence
CPT/HCPCS: 99211

== ENCOUNTER → 2023-07-09 | Outpatient (CLI) | payer MEDICARE ==
--- NOTE | 2023-07-10 09:19 | XR ---
EXAMINATION TYPE: XR foot complete bilateral DATE OF EXAM: 07/09/2023 COMPARISON: NONE HISTORY: Open wounds bilateral feet with swelling and erythema. TECHNIQUE: Three views are submitted. FINDINGS: Left foot: There is hypertrophic arthropathy of the first MTP. Calcaneal spurs are seen and there are surgical clips and diffuse soft tissue edema. There is lucencies involving the head of the fifth met atarsal and proximal phalanx of the fifth digit. Right foot: There is severe arthropathy of the first MTP. DIP joints of the other digits are not well seen. Soft tissue ossification adjacent to the fifth MTP joint. Moderate to severe arthropathy of th e first MTP. Calcaneal spurs are noted. Surgical clips are seen in the distal lower extremity soft ti ssues. Moderate hypertrophic arthropathy first PIP. Hammertoe deformities noted. Diffuse soft tissue edema. There is lucency involving the head of the fourth and fifth metatarsals. IMPRESSION: 1. Bilateral diffuse soft tissue edema correlate for cellulitis. There is lucency involving the head of the fourth and fifth metatarsal on the right and metatarsal on the left recommend infiltrates bone scan to assess for osteomyelitis.
== END | disposition home or self-care (01) ==
LOC: RADXRYALE 15:53
PROVIDERS: ATTEND Family Medicine
DX: S91.301D Unspecified open wound, right foot, subsequent encounter (principal); S91.302D Unspecified open wound, left foot, subsequent encounter; L53.9 Erythematous condition, unspecified; R60.0 Localized edema; X58.XXXD Exposure to other specified factors, subsequent encounter

== ENCOUNTER → 2023-08-08 | Outpatient (CLI) | payer MEDICARE ==
--- NOTE | 2023-08-08 12:59 | NM ---
EXAMINATION TYPE: NM bone 3 phase DATE OF EXAM: 08/08/2023 COMPARISON: X-ray 07/09/2023 CLINICAL INDICATION: Male, 82 years old with history of M86.172 acute osteomyelitis; Triple phase bone scintigraphy was performed following the injection of 24.1 mCi Tc 99m MDP. Immedia te images and 4.5 hours post injection images acquired. FINDINGS: There is fairly symmetric flow to the level of the ankles. Increased flow is noted along the medial m argin of the left. There is increased soft tissue uptake involving the ankles bilaterally greater on the left and mid ta rsal region. Delayed images demonstrate punctate bilateral posterior calcaneus may represent large calcaneal spurs seen by x-ray. Abnormal uptake involving the first digit bilaterally is likely in the basis hypertrophic arthropathy . Mild intensity uptake involving the region of the metatarsals is nonspecific. IMPRESSION: As noted by prior x-ray the left fifth MTP joint region was highly suspicious for osteomyelitis. Morgan ncies involving the fourth and fifth right metatarsals are also seen by prior x-ray. On bone scan the re remains faint uptake in the region of the bilateral fifth digit which could represent improving os teomyelitis. Recommend correlation with MRI if there is high clinical suspicion for osteomyelitis.
== END | disposition home or self-care (01) ==
LOC: RADNMMAIN 07:19
PROVIDERS: ATTEND Family Medicine
DX: M86.172 Other acute osteomyelitis, left ankle and foot (principal); M86.171 Other acute osteomyelitis, right ankle and foot
CPT/HCPCS: 78315; A9503